=== PATIENT | female | born 1940 | race Caucasian/White ===

== ENCOUNTER 2020-06-10 10:30 | Outpatient (RCR) | payer MEDICARE, SELFPAY ==
--- NOTE | 2020-05-24 12:24 | HP.PTEVAL_ITS ---
Patient's Visit Information JESSICA SHANNON I is a 79 year old F referred to Physical Therapy by Dr. Florentino Ca MD with a diagnosis of LOW BACK PAIN W/RADIC AND TROCHANTERIC BURSITIS.. Date of Evaluation: 05/24/20 Physical Therapist: Deana Campbell, PT, Cert MDT - Visit Plan Frequency: 2-3x /Week Duration: 4-6 Weeks Plan: START SLOW. AQUATIC THERAPY FOR PAIN RELEIF, POSTURE CORRECTION/STRENGTHENING, INSTRUCTION IN APPROPRIATE BODY MECHANICS AND ACTIVITY MODIFICATIONS. DLS WITH NEURTRAL SPINE ONLY. TRISTAN LE ROM, STRETCHING AND STRENGTHENING. HEP INSTRUCTION. - Subjective Present symptoms: TRISTAN LOW BACK AND RIGHT HIP PAIN. PAIN GOES BELOW THE KNEE ON THE RIGHT. TRISTAN FOOT NUMBNESS. ALSO A LITTLE LEFT HIP PAIN. Present since: YEARS. Pain Scale: WORST 10/10, LEAST 2/10. Currently: 2/10. Commenced as a result of: NO APPARENT REASON OTHER THAN ARTHRITIS. Symptoms at onset: LOW BACK. Worse: STANDING, WALKING, LIFTING, BENDING. Better: SITTING, LYING DOWN. Disturbed sleep: YES. Previous history/Previous treatment: RIGHT HIP INJECTION BY DR. CA ABOUT A WEEK AGO AND IT HELPED. EIS BY DR. HOFF YEARS AGO. LOW BACK SURGERY 2009. H/O CHIROPRACTIC TREATMENTS WITH THE LAST ONE BEING ABOUT 3 WEEKS AGO - NO SURE IF LAST VISIT HELPED OR NOT. HAS BEEN GOING TO [facility]CTOR FOR YEARS AND PLANS TO CONTINUE. PHYSICAL THERPAY INCLUDING AQUATIC THERAPY YEARS AGO - FELT GOOD. PATIENT REPORTS DR. WILSON TOLD HER A YEAR AGO SHE NEEDS ANOTHER SERIOUS BACK SURGERY AND PATIENT REPORTS SHE DOES NOT WANT TO GO THROUGH IT. SHE REPORTS DR. WILSON LEFT THE DECISION UP TO HER. Coughing/sneezing/straining: NEGATIVE. Gait: ROLLATOR FOR ABOUT YEAR NOW BECAUSE OF BACK AND HIP PAIN. WALKS A LITTLE BIT WITHOUT IT AT HOME BUT NOT A WHOLE LOT. STATES SHE BENT DOWN AND LOST HER BALANCE ABOUT A MONTH AGO AND FELL BUT REPORTS SHE DOESN'T FALL VERY OFTEN. Difficulty initiating urinatin: SOMETIMES. Accidents: NO. Unexplained weight loss: STATES SHE HAS LOST ABOUT 6 LBS SINCE RIGHT HIP INJECTION FOR NO APPARENT REASON AND PATIENT SAID IT SURPRISED HER. THIS PT RECOMMENDED SHE LET HER DOCTOR KNOW ABOUT THIS. Imaging: RIGHT HIP X-RAY AT DR. DUARTE OFFICE AND PATIENT REPORTS HE TOLD HER THERE IS A PROBLEM WITH HER HIP BUT IT IS NOT BONE ON BONE AND HE THINKS A LOT OF HER HIP PAIN IS COMING FROM HER BACK. PMH: HTN, HYPOTHYROIDISM, DEPRESSION, ARTHRITIS. Recent major surgery: TOTAL HYSTERECTOMY - Objective Sitting/Standing Posture: POOR. REDUCED LORDOSIS AND INCREASED TRUNK FLEXION. Active Correction of posture: WORSE. Other Observations: SLOW INDEP GAIT INTO PT WITH A ROLLATOR. NO LOB. INDEP TRANSFER SIT TO STAND WITHOUT UE ASSIST BUT DIFFICULT. PATIENT DENIES INCREASED PAIN WITH TRANSFER. Motor deficit: TRISTAN LE WEAKNESS GROSSLY 4/5. TESTING LIMITED IN HIPS BY PAIN. Sensory deficit: TRISTAN LE LIGHT TOUCH SENSATION APPEARS INTACT AND SYMMETRICAL BUT FEET NT. ROM deficit: TIGHT TRISTAN HIP FLEXORS, HS'S AND GASTROC SOLEUS COMPLEX'S. Reflexes: NT. Dural Signs: POSITIVE RIGHT LE. Lumbar mvmt loss: flex - MOD. ext - LATESHA. R SG - LATESHA. L SG - LATESHA. PATIENT WITH C/O INCREASED PAIN WITH LUMBAR ROM TESTING ALL PLANES EVEN WITH VERY GENTLE TESTING. Core strength: POOR. Palpation: PATIENT IS TENDER WITH LIGHT PALPATION OF THE ENTIRE LOW BACK AND TRISTAN HIP REGIONS. TREATMENT: NEUROMUSCULAR REEDUCATION - RETRAINING OF MVMT AND POSTURE FOR SITTING, LYING AND STANDING ACTIVITIES. - Goals Goal 1:: DECREASE C/O LOW BACK AND TRISTAN HIP PAIN Goal Time Frame: 4-6 Weeks Goal 2:: IMPROVE ADL, LIFITNG, WALKING, SITTING, STANDING, AND HOMEMAKING FUNCTION. Goal Time Frame: 4-6 Weeks Goal 3:: INSTRUCT IN PROPHYLAXIS - Anticipated Interventions Patient/Client Instruction: Educate patient on: Condition, Plan of Care, Risk Factors, Benefits of Fitness Program For the Purpose of:: To improve self management Therapeutic Exercise to Include: Strength training, Body mechanics, Postural training, Flexibilty training, Neuromotor development, In an aquatic setting, Dynamic Lumbar Stabilization For the Purpose of:: To decrease pain, To increase ROM, To improve muscle performance and motor function, To increase tolerance to activity/condition/position, To improve ability of physical actions for home/community/work/leisure, To improve gait and locomotor functions Thank you for the opportunity to evaluate your patient. For Medicare and Medicare HMO plans, please review the plan of care and approve it. It will need to be FAXED BACK to us at [phone] for Medicare purposes. For Medicare only, by signing this I certify the plan of care. Please let me know if there are questions or concerns regarding this plan of care. Physician Signature: Date:
--- NOTE | 2020-06-24 12:47 | HP.PT.NRP ---
JESSICA SHANNON I was seen in my office for initial evaluation on 05/24/20. The following Plan of Care was established for this patient: Initial Frequency: 2-3x /Week Initial Duration: 4-6 Weeks Patient/Client Instruction: Educate patient on: Condition, Plan of Care, Risk Factors, Benefits of Fitness Program For the Purpose of:: To improve self management Therapeutic Exercise to Include: Strength training, Body mechanics, Postural training, Flexibilty training, Neuromotor development, In an aquatic setting, Dynamic Lumbar Stabilization For the Purpose of:: To decrease pain, To increase ROM, To improve muscle performance and motor function, To increase tolerance to activity/condition/position, To improve ability of physical actions for home/community/work/leisure, To improve gait and locomotor functions This patient was last seen in our office . Pertinent comments regarding their Physical therapy will appear below: PATIENT CANCELLED ALL REMAINING CIERRA'TS PER DR. RAYA. HAVING BACK SURGERY. At this point I will be discontinuing this patient from physical therapy. I would be happy to see this patient again in the future if found appropriate by the physician. Thank you! Deana Campbell, PT, Cert MDT
== END 2020-06-10 19:00 | disposition home or self-care (01) ==
LOC: PT 10:30
PROVIDERS: PCP Preventive Medicine Occupational Medicine; Referring Provider Specialist; Visit Provider Specialist
DX: M70.61 Trochanteric bursitis, right hip (principal); M54.5 Low back pain; M54.16 Radiculopathy, lumbar region
CPT/HCPCS: 97112; 97113; 97162

== ENCOUNTER 2020-08-02 07:26 | Day surgery (SDC) | payer MEDICARE, SELFPAY ==
[2020-08-02 07:55] VITALS: BP 184/72; PULSE 61; RESP 17; TEMP 36.6; O2SAT 98; BMI 44.6
[2020-08-02] MEDS: Lactated Ringers 1,000 ML 100 ML IV (08:19)
--- NOTE | 2020-08-02 08:39 | RAD_ITS ---
PROCEDURE: Lumbar facet injection. DATE OF EXAMINATION: 08/02/2020. INDICATION: Female, 79 years old. Chronic back pain. FLUOROSCOPY TIME (if supplied): (22.9 seconds) minutes/seconds. 4 intraoperative images were obtained. Intraoperative imaging provided for left L3-S1 facet joint injection. RAD/L/S Spine Min 4 Views IMPRESSION: Intraoperative imaging provided for left L3-S1 facet joint injection. Electronically Signed: Catrachito Boyd MD at 10:42 EDT , Service support ,
[2020-08-02] MEDS: Bupivacaine 0.25% 30 ML Vial (08:48)
[2020-08-02] MEDS: Lidocaine 1% (5 ml sdv) 5 ML Vial (08:48)
[2020-08-02] MEDS: MethylPREDNISolone Acetate 40 MG/ML Vial IM (08:48)
[2020-08-02 08:55] VITALS: BP 125/65; BP 155/70; PULSE 58; RESP 14; TEMP 36.2; O2SAT 97
[2020-08-02 09:00] VITALS: BP 120/75; BP 155/70; PULSE 58; RESP 16; O2SAT 94
[2020-08-02 09:05] VITALS: BP 119/75; BP 155/70; PULSE 59; RESP 16; O2SAT 95
[2020-08-02 09:10] VITALS: BP 137/70; BP 155/70; PULSE 56; RESP 16; TEMP 36; O2SAT 94
[2020-08-02 09:50] VITALS: BP 155/70
--- NOTE | 2020-08-02 12:35 | PCM.OPRPT ---
Report of Operation Date of Procedure: 08/02/20 Description of Surgical Findings:: PROCEDURE: Left-sided lumbar facet steroid injection at L3, L4, L5, S1. PREOPERATIVE DIAGNOSES: Lumbosacral spondylosis, lumbosacral degenerative disk disease, lumbar facet arthropathy. POSTOPERATIVE DIAGNOSES: Lumbosacral spondylosis, lumbosacral degenerative disk disease, lumbar facet arthropathy. ANESTHESIA: MAC. COMPLICATIONS: None. BLOOD LOSS: Minimal. PROCEDURE IN DETAIL: History and physical today was reviewed. Risks and benefits of procedure explained. The patient understood, agreed to procedure and informed consent was obtained. IV inserted per routine protocol. The patient was taken to the operating room, placed in the prone position with a pillow positioned underneath the abdomen. The left side of her lower back was prepped and draped in a sterile fashion using iodine x3. Under fluoroscopy guidance, on AP view, the L3 through S1 vertebral bodies were visualized. The skin and subcutaneous tissue anesthetized with approximately 5 mL of 1% lidocaine using a 25-gauge regular needle. Under direct visualization with fluoroscopy at approximately 15-degree angle, starting on the left L3, ending on the left S1, passing through the L4-L5 using a 22-gauge 3-1/2-inch spinal needle, the needle was advanced via the skin. The tip of the needle was maneuvered and directed towards the superior and medial gutter of the transverse process at the vicinity of the medial branch. Once the tip of the needle was in contact with the bone, the needle was pulled approximately 2 mm up the bone. After negative aspiration of blood with CSF and confirmation of AP as well as oblique view, a total of 8 mL of preservative-free 0.25% Marcaine with 80 mg of Depo-Medrol was injected in divided doses between those 4 levels. The patient experienced no signs or symptoms of intrathecal, intravascular injection. The patient experienced no paraesthesia. The procedure was completed without any apparent difficulty, any complication. The patient appeared to tolerate well. ASSESSMENT AND PLAN: This is a 79-year-old female with lumbosacral spondylosis, lumbosacral degenerative disk disease, lumbar facet arthropathy status post left-sided lumbar facet steroid injection at L3 through S1. The patient will continue her current medications. The patient will follow up in approximately 2 weeks for reevaluation.
== END 2020-08-02 09:55 | disposition home or self-care (01) ==
LOC: SDC 07:27 → AC 07:27
PROVIDERS: PCP Preventive Medicine Occupational Medicine; Referring Provider Anesthesiology Pain Medicine; Visit Provider Anesthesiology Pain Medicine
PROC: 3E0T3BZ Introduction of Anesthetic Agent into Peripheral Nerves and Plexi, Percutaneous Approach (ICD-10-PCS; CPT 64493; principal; 2020-08-02 08:35)
DX: M51.17 Intervertebral disc disorders with radiculopathy, lumbosacral region (principal); M47.27 Other spondylosis with radiculopathy, lumbosacral region; M48.07 Spinal stenosis, lumbosacral region; M96.1 Postlaminectomy syndrome, not elsewhere classified; M79.7 Fibromyalgia; M16.11 Unilateral primary osteoarthritis, right hip; I10 Essential (primary) hypertension; E03.9 Hypothyroidism, unspecified; K21.9 Gastro-esophageal reflux disease without esophagitis; F32.9 Major depressive disorder, single episode, unspecified; E06.9 Thyroiditis, unspecified; Z79.899 Other long term (current) drug therapy
CPT/HCPCS: 64493; 64494; 64483; 72110; J7120

== ENCOUNTER 2020-09-20 13:13 | Day surgery (SDC) | payer MEDICARE, SELFPAY ==
[2020-09-20] VITALS (7 sets, daily range): BP systolic 115–147; BP diastolic 68–103; PULSE 57–67; RESP 16; TEMP 36.3–36.6; O2SAT 92–97; BMI 19.5
[2020-09-20] MEDS: Lactated Ringers 1,000 ML 100 ML IV (13:46)
--- NOTE | 2020-09-20 14:20 | RAD_ITS ---
PROCEDURE: Caudal epidural steroid injection. DATE OF EXAMINATION: 09/20/2020. INDICATION: Female, 79 years old. Chronic low back pain. FLUOROSCOPY TIME (if supplied): (9 seconds) minutes/seconds. One single image was obtained. Intraoperative imaging provided for caudal injection. RAD/Fluor Guidance for Spine Inj IMPRESSION: Intraoperative imaging provided for caudal epidural steroid injection. Electronically Signed: Catrachito Boyd MD at 13:40 EDT , Service support ,
[2020-09-20] MEDS: Lidocaine 1% (5 ml sdv) 5 ML Vial (14:23)
[2020-09-20] MEDS: 0.9% Normal Saline (Pres. free 10 ML Vial (14:23)
[2020-09-20] MEDS: MethylPREDNISolone Acetate 40 MG/ML Vial IM ×2 (14:23)
[2020-09-20] MEDS: Bupivacaine 0.25% 30 ML Vial (14:23)
--- NOTE | 2020-09-20 14:38 | OP.PCM_ITS ---
Report of Operation Date of Procedure: 09/20/20 Pre-Operative Diagnosis: Lumbosacral radiculopathy, lumbosacral degenerative di sc disease, lumbosacral spinal stenosis Post-Operative Diagnosis: Lumbosacral radiculopathy, lumbosacral degenerative disc disease, lumbosacral spinal stenosis Surgery/Procedure Performed:: Caudal epidural steroid injection under fluoroscopic guidance Description of Surgical Findings:: DESCRIPTION OF PROCEDURE: History and physical of today was reviewed. Risks and benefits of the procedure were explained. The patient understood and agreed to proceed. Informed consent was obtained. IV inserted per routine protocol. The patient was taken to the operating room and placed in the prone position with a pillow positioned underneath the abdomen. The lower back and tailbone area was prepped and draped in a sterile fashion using iodine x3. Under fluoroscopy guidance on a lateral view, the caudal space was identified. The skin and subcutaneous tissue was anesthetized with approximately 3 mL of 1% lidocaine using a 25-gauge regular needle. Under direct visualization with fluoroscopy, using a 22-gauge 3-1/2-inch spinal needle, the needle was advanced via the skin through the sacral hiatus. The tip of the needle was passed through the sacrococcygeal ligament and advanced to approximately S4 area. After negative aspiration of blood or CSF, a total of 3 mL of contrast was injected to confirm correct placement of the needle as well as cephalad spread. The spread was followed to approximately L5 area. After confirmation on AP as well as lateral view and repeated negative aspiration, a total of 15 mL of preservative-free 0.125% Marcaine with 80 mg of Depo-Medrol was injected easily. The needle was then removed intact. The patient experienced no sign or s ymptoms of intrathecal or intravascular injection. The patient experienced no paresthesia. The procedure was completed without any apparent difficulty or any complications. The patient appeared to tolerate it well. ASSESSMENT AND PLAN: This is an 79-year-old female with lumbosacral radiculopathy, lumbosacral degenerative disc disease, lumbosacral spinal stenosis, status post caudal epidural steroid injection, patient will continue her current medications, patient will follow up in approximately 2 weeks for reevaluation. Type of Anesthesia: MAC Estimated Blood Loss (mL): Minimal Complications None
== END 2020-09-20 15:28 | disposition home or self-care (01) ==
LOC: SDC 13:14 → AC 13:14
PROVIDERS: PCP Preventive Medicine Occupational Medicine; Referring Provider Anesthesiology Pain Medicine; Visit Provider Anesthesiology Pain Medicine
PROC: 3E0S3BZ Introduction of Anesthetic Agent into Epidural Space, Percutaneous Approach (ICD-10-PCS; CPT 62282; principal; 2020-09-20 14:45)
DX: M51.17 Intervertebral disc disorders with radiculopathy, lumbosacral region (principal); M48.07 Spinal stenosis, lumbosacral region; M96.1 Postlaminectomy syndrome, not elsewhere classified; M47.27 Other spondylosis with radiculopathy, lumbosacral region; M16.11 Unilateral primary osteoarthritis, right hip; I10 Essential (primary) hypertension; E03.9 Hypothyroidism, unspecified; K21.9 Gastro-esophageal reflux disease without esophagitis; M79.7 Fibromyalgia; Z79.899 Other long term (current) drug therapy
CPT/HCPCS: 62323; 64520; 64483; 77003; J7120; J3490

== ENCOUNTER 2020-10-28 14:22 | Observation (INO) | payer MEDICARE, SELFPAY ==
[2020-09-20 13:39] VITALS: BMI 19.5
[2020-10-28] VITALS (9 sets, daily range): BP systolic 120–185; BP diastolic 59–127; PULSE 60–81; RESP 15–18; TEMP 36.4–36.9; O2SAT 88–98; BMI 38.1; BMI 43.0
--- NOTE | 2020-10-28 14:49 | EDS_ITS ---
HPI History of Present Illness Chief Complaint: Back Detail of Chief Complaint: Back pain that has been chronic and worse today Informant: patient Associated Symptoms Associated Symptoms: Radiation to Right Leg and Unable to Ambulate Narrative Narrative: Patient presents to the emergency department with severe back pain today. Patient states that she is been dealing with this back pain for many months and has been seen by pain management and has had injections in her back. The last injection was sometime in September. Patient also sees a back specialist and surgeon who did surgery on her back in 2009. She was told she might need another surgery but they were not sure she would walk again. It was recommended at her age that she may be not have the surgery. Patient denies any injury to her back. She denies any urinary symptoms. She denies any fever. She denies weakness in extremities. She has had some urinary incontinence but this has been chronic. Patient denies fever or recent illness. [facility] Medical History (Updated 10/28/20 @ 16:[address] Cleveland Oliva DO) Back pain HTN (hypertension) Hyperlipidemia Hypothyroid Ovarian cyst Home Medications Cetirizine Hcl [Zyrtec] 10 mg PO DAILY 06/02/13 [History Last Taken 04/23/16] Cinnamon 1 cap PO DAILY 06/02/13 [History Last Taken 04/23/16] Glucosamine-Chondroitin Complx 1 ea PO DAILY 06/02/13 [History Last Taken 04/23/16] calcium carbonate [Oyster Shell Calcium 500] 500 mg PO DAILY@0800 06/02/13 [History Last Taken 04/23/16] cholecalciferol (vitamin D3) [Vitamin D3] 2,000 unit PO DAILY 06/02/13 [History Last Taken 04/23/16] furosemide 40 mg PO DAILY 06/02/13 [History Last Taken 04/23/16] levothyroxine 112 mcg PO DAILY 06/02/13 [History Last Taken 09/20/20] losartan [Cozaar] 100 mg PO DAILY 06/02/13 [History Last Taken 09/20/20] multivitamin with folic acid [Thera] 1 tab PO DAILY 06/02/13 [History Last Taken 04/23/16] potassium citrate [Urocit-K 10] 20 meq PO DAILY 06/02/13 [History Last Taken 04/23/16] sertraline [Zoloft] 50 mg PO QHS 06/02/13 [History Last Taken 04/23/16] atenolol 25 mg PO QHS 07/30/20 [History Last Taken Unknown] diclofenac sodium 50 mg PO DAILY 07/30/20 [History Last Taken Unknown] Allergy/AdvReac Type Severity Reaction Status Date / Time codeine phosphate Allergy Severe Rash Verified 10/28/20 14:26 [From Tylenol-Codeine #3] diazepam [From Valium] Allergy Severe Rash Verified 10/28/20 14:26 prochlorperazine edisylate Allergy Severe Other Verified 10/28/20 14:26 [From Compazine] prochlorperazine maleate Allergy Severe Other Verified 10/28/20 14:26 [From Compazine] amoxicillin trihydrate Allergy Rash Verified 10/28/20 14:26 [From Augmentin] ampicillin Allergy Rash Verified 10/28/20 14:26 cephalexin monohydrate Allergy Rash Verified 10/28/20 14:26 [From Keflex] chlorpheniramine maleate Allergy Rash Verified 10/28/20 14:26 [From Chlor-Trimeton] dexamethasone [From Decadron] Allergy Other Verified 10/28/20 14:26 dexamethasone sod phosphate Allergy Other Verified 10/28/20 14:26 [From Decadron] levofloxacin [From Levaquin] Allergy Rash Verified 10/28/20 14:26 lorazepam [From Ativan] Allergy Rash Verified 10/28/20 14:26 Penicillins Allergy Rash Verified 10/28/20 14:26 potassium clavulanate Allergy Rash Verified 10/28/20 14:26 [From Augmentin] Surgical History (Updated 10/28/20 @ 14:32 by Noah Bazzi) History of hysterectomy Hx of cholecystectomy Hx of tonsillectomy Social History Smoking Status: Never smoker ROS ROS ED Constitutional Constitutional ED: Reports systems reviewed and no addt'l complaints, except as documented; Denies body ache(s), change in weight or chills Eyes Eyes: Denies acute decrease in peripheral vision, change in vision, double vision or loss of vision ENT ENT ED: Reports none; Denies ear pain, lip swelling, loss taste/smell, neck pain, otalgia or sore throat Cardiovascular Cardiovascular: Reports none; Denies abdominal pain, chest pain with activity, leg edema, lightheadedness, palpitations, rapid heart rate or syncope Respiratory/Chest Respiratory/Chest: Reports none; Denies change in mental status, dry cough, dyspnea, hemoptysis, shortness of breath at rest or shortness of breath with exertion Gastrointestinal Gastrointestinal: Reports none; Denies abdominal pain, change in stool character, diarrhea, hematemesis, hematochezia, melena, rectal bleeding or vomiting Genitourinary Genitourinary ED: Reports none; Denies abdominal discomfort, anuria, dysuria, genital pain or polyuria Musculoskeletal Musculoskeletal: Reports none and back pain; Denies arthralgias, difficulty walking, extremity pain, muscle weakness or myalgias Integumentary Reports none; Denies abscess or rash Neurologic Neurologic: Reports none; Denies abnormal gait, confusion, focal weakness, frequent falls, headache(s), loss of vision, numbness, paresthesias, radicular pain, vertigo or weakness Psychiatric Psychiatric: Reports systems reviewed and no addt'l complaints, except as documented and none; Denies behavioral changes, confusion, difficulty concentrating, hallucinations, suicidal ideation, tactile hallucinations or visual hallucinations Endocrine Endocrinology: Denies none, cold intolerance, excessive sweating, fatigue or heat intolerance Hematologic/Lymphatic Hematologic/Lymphatic: Reports none; Denies anemia, easy bleeding or easy bruising Allergic/Immunologic Allergic/Immunologic ED: Denies as per HPI, none, lip swelling, mouth swelling, throat swelling, tongue swelling or hives EXAM Physical Exam Const Vital Signs: 10/28/20 14:23 Temperature 98.5 F Temperature Source Oral Pulse Rate 65 Respiratory Rate 18 Blood Pressure 162/127 H Blood Pressure Mean 138 Pulse Ox 93 Positive well nourished and well developed General Appearance ED: well developed and NAD HEENT Reports TM's clear and moist mucous membranes normocephalic and atraumatic; Negative for trauma or tenderness Tympanic Membrane ED: Yes TM's clear Eyes PERRL and EOMs intact bilaterally General Eye ED: Negative for pale conjunctiva or scleral icterus Neck no lymphadenopathy, supple and no JVD General: Negative for tenderness Chest Wall inspection of chest normal and palpation of chest normal Chest: Negative for tenderness Resp normal respiratory effort and clear to auscultation bilaterally Effort and Inspection: Negative for respiratory distress or pain with movement Auscultation: Negative for rhonchi, wheezes or diminished lung sounds Cardio regular rate, regular rhythm, S1 normal heart sound, S2 normal heart sound and no murmurs Peripheral Pulses: pulses 2+ throughout GI normal to inspection, nondistended, normoactive bowel sounds, soft to palpation, non-tender, non-distended and no masses Back/Spine no CVA tenderness and no thoracic nor lumbar tenderness Back/Spine Narrative: Patient with diffuse tenderness to palpation of her lower back. She has positive straight leg raises while supine at about 45 degrees. Deep tendon reflexes are plus 1 out of 4 bilaterally at the patella and Achilles. Patient has normal L5 extension bilaterally. Normal sensation to light touch. Cervical Spine: paracervical muscle tenderness Thoracic Spine / Upper Back: paraspinal muscle tenderness Lumbar Spine / Lower Back: ROM limited, straight leg raise positive right and straight leg raise positive - left Extremity normal to inspection General Extremety ED: Negative for edema General Extremity: Negative for edema Neuro oriented x3, CN's II-XII intact bilaterally, no sensory deficits noted and gait normal Sensorium / Orientation: awake, alert, oriented to person, oriented to place and oriented to time Motor Exam: strength 5/5 throughout and strength abnormal Psych mental status grossly normal Skin no rashes or lesions noted and no wounds MDM MDM MDM Narrative Medical decision making narrative: Patient case discussed with hospitalist will evaluate patient for admission. She will be admitted for intractable back pain and inability to ambulate because of the pain. Lab Data Attestation: I reviewed the patient's lab results. Labs: Laboratory Results - last 24 hr 10/28/20 10/28/20 10/28/20 15:05 15:05 15:25 WBC 4.8 RBC 4.26 Hgb 12.4 Hct 40.2 MCV 94.4 MCH 29.1 MCHC 30.8 L RDW Std Deviation 49.1 H RDW Coeff of Mary 14.1 Plt Count 213 MPV 10.0 Immature Gran % (Auto) 0.400 Neut % (Auto) 61.7 Lymph % (Auto) 22.4 [place] % (Auto) 11.6 H Eos % (Auto) 3.3 Baso % (Auto) 0.6 Absolute Neuts (auto) 3.0 Absolute Lymphs (auto) 1.08 Nucleated RBC % 0 Sodium 141 Potassium 4.0 Chloride 106 Carbon Dioxide 32.0 Anion Gap 3 L BUN 17 Creatinine 0.92 Estim Creat Clear Calc 43.15 Est GFR (MDRD) Af Amer 76 Est GFR (MDRD) Non-Af 63 BUN/Creatinine Ratio 18.5 Glucose 98 Calcium 9.0 Urine Color Straw Urine Clarity Clear Urine pH 8.0 Ur Specific [place] 1.010 Urine Protein Negative Urine Glucose (UA) Normal Urine Ketones Negative Urine Occult Blood Negative Urine Nitrite Negative Urine Bilirubin Negative Urine Urobilinogen Normal Ur Leukocyte Esterase 25 H Urine RBC 0 SEEN Urine WBC 0-5 SEEN Ur Squamous Epith Cells 0-5 SEEN Urine Bacteria 0 SEEN Urine Mucus 0 SEEN Discharge Plan Triage Chief Complaint: Back ED Provider: Cleveland Oliva Dx/Rx/DC Orders Clinical Impression: Intractable back pain, Inability to walk Prescriptions: No Action furosemide 40 MG tablet 40 mg PO DAILY RF: 0 levothyroxine 100 MCG tablet 112 mcg PO DAILY RF: 0 calcium carbonate [Oyster Shell Calcium 500] 500 MG tablet 500 mg PO DAILY@0800 RF: 0 potassium citrate [Urocit-K 10] 10 MEQ tablet extended release 20 meq PO DAILY RF: 0 sertraline [Zoloft] 25 MG tablet 50 mg PO QHS RF: 0 losartan [Cozaar] 100 MG tablet 100 mg PO DAILY RF: 0 cholecalciferol (vitamin D3) [Vitamin D3] 2,000 UNIT tablet 2,000 unit PO DAILY RF: 0 multivitamin with folic acid [Thera] 1 TABLET tablet 1 tab PO DAILY RF: 0 Glucosamine-Chondroitin Complx 1 EACH tablet 1 ea PO DAILY RF: 0 Cetirizine Hcl [Zyrtec] 10 MG tablet 10 mg PO DAILY RF: 0 Cinnamon 1 cap PO DAILY RF: 0 atenolol 25 MG tablet 25 mg PO QHS RF: 0 diclofenac sodium 50 MG tablet 50 mg PO DAILY RF: 0 Primary Care Provider: Alfred Mckay Referrals: Alfred Mckay DO [Primary Care Provider] - Disposition Disposition: Acute Care Hospital [facility]
[2020-10-28 15:18] LABS: Absolute Lymphocyte Count 1.08 X10^3/uL (0.83-4.51); Basophil# 0.03 X10^3/uL; Basophil% 0.6 % (0-1); Eosinophil# 0.16 X10^3/uL; Eosinophils% 3.3 % (0-5); Hematocrit 40.2 % (37-47); Hemoglobin 12.4 g/dL (12.0-15.0); Lymphocyte # 1.08 X10^3/ul (0.83-4.51); Lymphocyte % 22.4 % (19-41); Mean Corp Hgb Conc 30.8 g/dL (32-36); Mean Corpuscular Hgb 29.1 pg (27.0-32.0); Mean Corpuscular Volume 94.4 fL (81-99); Monocyte# 0.56 X10^3/uL; Monocyte% 11.6 % (0-10); NRBC Flagged by Analyzer 0 % (0-5); Neutrophil # 2.97 X10^3/uL (2.7-7.7); Neutrophil % 61.7 % (47-70); Platelet Count 213 K/mm3 (150-450); RBC Distribution Width CV 14.1 % (11.6-14.6); RBC Distribution Width SD 49.1 fl (35.1-43.9); Red Blood Count 4.26 M/mm3 (4.2-5.4); White Blood Count 4.8 K/mm3 (4.4-11.0)
[2020-10-28] MEDS: 0.9% Normal Saline 1,000 ML 15 ML IV (15:24)
[2020-10-28 15:32] LABS: Bacteria 0 SEEN /hpf (None Seen); Mucous, Urine 0 SEEN /hpf (<or=2+); Red Blood Cells-Urine 0 SEEN /hpf (0-5)
[2020-10-28 15:32] LABS: Anion Gap 3 (5-15); BUN 17 mg/dL (7-18); BUN/Creat Ratio 18.5 RATIO (10-20); Chloride 106 mmol/L (98-107); Creatinine, Serum 0.92 mg/dL (0.55-1.02); EST Glomerular Filtration Rate 63 mL/min (>60); Est Glom Filt Rate - Afr Amer 76 mL/min (>60); Estimated Creatinine Clearance 43.15 ml/min; Glucose 98 mg/dL (74-106); Sodium Level 141 mmol/L (136-145)
[2020-10-28 15:38] LABS: Color, Urine Straw (Yellow); Glucose, Dipstick Normal (Normal); Ketone-Dipstick Negative (Negative); Leukocyte Esterase-Dipstick 25 /ul (Negative); Nitrite-Dipstick Negative (Negative); Occult Blood-Urine Negative /ul (Negative); Protein-Dipstick Negative (Negative); Urine Bilirubin Dipstick Negative (Negative); Urine Clarity Clear (Clear); Urine Urobilinogen Normal (Normal)
[2020-10-28 15:44] LABS: Squamous Epithelial Cells - UA 0-5 SEEN /hpf (5-10); White Blood Cells 0-5 SEEN /hpf (0-5)
--- NOTE | 2020-10-28 16:44 | NURSING ---
MED SURG JOPPERI OBS INTRACTABLE BACK PAIN, INABILITY TO AMBULATE
--- NOTE | 2020-10-28 16:53 | MRI_ITS ---
HISTORY: Intractable back pain EXAMINATION: MR Spine Lumbar WO/W Contrast TECHNIQUE: Multiplanar and multisequence MR images of the lumbar spine. IV Contrast dosage and agent: None. COMPARISON: Fluoroscopic exams are available from July 21, 2020 as well as June 05, 2016. Previous MRIs of the lumbar spine are prominent [facility] second 2015, and November 04, 2010. FINDINGS: The patient has had spinal fixation surgery at the L4-L5 level. Parts of the posterior elements of been resected at the L4 and L5 levels. VERTEBRAE: Vertebral body height is normal. Degenerative malalignment is present at several levels. L4 is anteriorly subluxed on L5 by a few millimeters. L5 is anteriorly subluxed on S1 by a few millimeters. This did agree of degenerative subluxation is similar to that of the 2015 MRI, and may be slightly more advanced than to November 04, 2010 study. Marrow signal demonstrates Modic type endplate changes at the L2-L3 and L5-S1 levels. The disease at the L2-L3 level appears to be similar. The disease at the L5-S1 level I believe is slightly progressed. There is some in homogeneity of the magnetic field due to the metal within the hardware fixation causing the apparent edema within the dorsal soft tissues at the L4 and L5 levels, but I believe this is just susceptibility artifact. No expansile or destructive lesion. CORD: Normal visualized portions of the spinal cord and cauda equina, with the tip of the conus medullaris at the L1 level. The epidural fat at the laminar junction line beginning at about the T11-T12 level, and continuing down to the L3-L4 level is fairly prominent, with thickening of the posterior dura, and it causing the dura to extend anteriorly. At these levels, from L2-L3 through to L4 there is narrowing of the dural sac around the nerves with displacement of CSF. This disease is new since the January 21, 2016 study, and may be sequelae of arachnoiditis SOFT TISSUES: There is some atrophy to the paraspinal musculature both above and at the operative levels within the lower lumbar spine. L1/L2: No disc bulge, central canal stenosis, or neural foraminal stenosis. L2/L3: At the L2-L3 level there is near complete displacement of all of the CSF from the dural sac due to the prominence of the epidural fat compressing in on the dural sac and possibly related to dural scarring. There is some facet arthropathy and ligament thickening disc bulge at the L2-L3 level, however, this osseous and ligamentous and disc disease is less than that of the prominence of the fat in the scarring of the dural sac. L3/L4: The disease at the L3-L4 level is the same as that as the L2-L3 level, with prominence of the dorsal epidural fat compressing in an scarring to the dural sac displacing CSF from the dural sac. There is facet arthropathy, ligamentum thickening, and minimal disc bulge, but this has negligible effect. L4/L5: Due to the surgical changes at the L4-L5 level the spinal canal is patent. L5/S1: Surgical changes at the L4-L5 level with minimal disc bulge and no significant ligament. MRI/Spine Lumbar W/WO Contrast IMPRESSION: Postoperative changes at the L4-L5 level with hardware fixation. Collapse of the dural sac around the nerves at the L2-L3 and L3-L4 levels which appears to be more due to prominence of the epidural fat adjacent to the laminar junction line rather than facet arthropathy, ligamentum thickening, or disc bulge. 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 This disease is new since the most recent MRI of December 21, 2015 at 2252 Reported and signed by: Don Zamora MD Electronically Signed: Don Zamora MD at 22:50 EDT Tel , Service support ,
--- NOTE | 2020-10-28 17:06 | PCM.HP.STD ---
Documented by User: Robinson MCGOVERN 10/28/20 17:29 HPI - General General Date of Admission: 10/28/20 HPI Narrative Patient is an 80-year-old female presents to the ED at [facility] on 10/28/2020 with a chief complaint of worsening intractable back and leg pain. Patient has a chronic 10-year history of back pain and follows with orthopedics and pain management. Patient received a routine steroid injection 3 weeks ago, to which her pain is usually amenable. Patient has received no relief from the injection and pain has only gotten progressively worse over the past month. Patient reports that the her pain is so bad today that she cannot complete her activities of daily living or ambulate around the house, which is abnormal for her. Patient reports pain in her back and legs, however denies any radiation of her symptoms. Patient denies any saddle anesthesia but does report some urinary incontinence which is a chronic problem for her. Denies chest pain, shortness of breath, palpitations, hemoptysis, fever, chills, N/V/D. Patient denies any recent sick contacts. Past medical history is significant for lumbosacral spondylolosis, lumbosacral degenerative disc disease, lumbar facet arthropathy, diverticulitis, hypertension, hypothyroidism, GERD, arthritis, fibromyalgia and osteoarthritis. Past surgical history is significant for lumbar fusion in 2009 with plates rods and screws, multiple other surgeries completed throughout patient's lifetime. Vital signs unremarkable and patient is afebrile. CBC and BMP unremarkable. UA unremarkable. [facility] Medical History Back pain HTN (hypertension) Hyperlipidemia Hypothyroid Non-smoker Ovarian cyst Home Medications Glucosamine-Chondroitin Complx 1 ea PO DAILY 06/02/13 [History Last Taken 10/27/20] cholecalciferol (vitamin D3) [Vitamin D3] 4,000 unit PO DAILY 06/02/13 [History Last Taken 10/27/20] furosemide 40 mg PO DAILY 06/02/13 [History Last Taken 10/27/20] losartan [Cozaar] 100 mg PO DAILY 06/02/13 [History Last Taken 10/28/20] multivitamin with folic acid [Thera] 1 tab PO DAILY 06/02/13 [History Last Taken 10/27/20] potassium citrate [Urocit-K 10] 20 meq PO DAILY 06/02/13 [History Last Taken 10/28/20] atenolol 25 mg PO QHS 07/30/20 [History Last Taken 10/27/20] diclofenac sodium 50 mg PO BID 07/30/20 [History Last Taken 10/28/20] calcium citrate 1,000 mg PO DAILY 10/28/20 [History Last Taken 10/27/20] cetirizine [Zyrtec] 10 mg PO DAILY 10/28/20 [History Last Taken 10/28/20] cinnamon bark [Cinnamon] 1,000 mg PO DAILY 10/28/20 [History Last Taken 10/27/20] gabapentin 300 mg PO QHS 10/28/20 [History Last Taken 10/27/20] levothyroxine 112 mcg PO DAILY 10/28/20 [History Last Taken 10/28/20] sertraline 50 mg PO QHS 10/28/20 [History Last Taken 10/27/20] Allergy/AdvReac Type Severity Reaction Status Date / Time codeine phosphate Allergy Severe Rash Verified 10/28/20 14:26 [From Tylenol-Codeine #3] diazepam [From Valium] Allergy Severe Rash Verified 10/28/20 14:26 prochlorperazine edisylate Allergy Severe Other Verified 10/28/20 14:26 [From Compazine] prochlorperazine maleate Allergy Severe Other Verified 10/28/20 14:26 [From Compazine] amoxicillin trihydrate Allergy Rash Verified 10/28/20 14:26 [From Augmentin] ampicillin Allergy Rash Verified 10/28/20 14:26 cephalexin monohydrate Allergy Rash Verified 10/28/20 14:26 [From Keflex] chlorpheniramine maleate Allergy Rash Verified 10/28/20 14:26 [From Chlor-Trimeton] dexamethasone [From Decadron] Allergy Other Verified 10/28/20 14:26 dexamethasone sod phosphate Allergy Other Verified 10/28/20 14:26 [From Decadron] levofloxacin [From Levaquin] Allergy Rash Verified 10/28/20 14:26 lorazepam [From Ativan] Allergy Rash Verified 10/28/20 14:26 Penicillins Allergy Rash Verified 10/28/20 14:26 potassium clavulanate Allergy Rash Verified 10/28/20 14:26 [From Augmentin] Surgical History History of appendectomy History of hysterectomy Hx of cholecystectomy Hx of tonsillectomy Social History Smoking Status: Never smoker ROS Constitutional Constitutional: Reports weakness; Denies anorexia, change in weight, chills, fatigue, fever(s), malaise, night sweats or other Eyes Eyes: Denies blurry vision, change in eye color, change in vision, discharge from eye(s), double vision, erythema, eye pain, loss of vision or other ENT HEENT: Denies abnormal hearing, dysphagia, ear pain, epistaxis, headache(s), hearing loss, nasal congestion, nasal discharge, post nasal drip, sinus pressure, sore throat or other Cardiovascular Cardiovascular: Denies chest pain, claudication, dyspnea on exertion, edema, lightheadedness, orthopnea, palpitations, paroxysmal nocturnal dyspnea, rapid heart rate, syncope or other Respiratory/Chest Respiratory/Chest: Denies cough, dyspnea, excessive phlegm production, hemoptysis, productive cough, shortness of breath at rest, shortness of breath with exertion, wheezing or other Gastrointestinal Gastrointestinal: Denies abdominal pain, coffee ground emesis, constipation, diarrhea, dyspepsia, hematemesis, hematochezia, loose stools, melena, nausea, vomiting or other Genitourinary Genitourinary: Denies burning urination, difficulty urinating, dysuria, hematuria, nocturia, urinary frequency, urinary hesitancy, urinary incontinence, urinary urgency or other Musculoskeletal Musculoskeletal: Reports arthralgias, back pain and joint pain Neurologic Neurologic: Denies abnormal gait, abnormal speech, confusion, disequilibrium, dizziness, focal weakness, headache(s), numbness, paresthesias, seizure-like activity, seizures, syncope, tingling, tremor(s) or other Psychiatric Psychiatric: Denies anxiety, depression, homicidal ideation, suicidal ideation or other Endocrine Endocrinology: Denies change in body appearance, cold intolerance, excessive sweating, heat intolerance, polydipsia, polyuria or other Hematologic/Lymphatic Hematologic/Lymphatic: Denies anemia, easy bleeding, easy bruising, lymphadenopathy or other Allergic/Immunologic Allergic/Immunologic: Denies rhinitis, hives, eczemia, asthma or other Vital Signs Vital Signs Vital Signs: 10/28/20 14:23 10/28/20 16:59 Temperature 98.5 F 97.6 F L Temperature Source Oral Temporal Pulse Rate 65 81 Respiratory Rate 18 15 Blood Pressure 162/127 H 126/93 H Blood Pressure Mean 138 104 Pulse Ox 93 93 Oxygen Delivery Method Room Air Weight Weight: 229 lb 4.492 oz Body Mass Index (BMI) 38.1 Physical Exam Narrative See subjective. Const alert and oriented x3 HEENT normocephalic, head/scalp atraumatic and hearing grossly normal bilaterally Eyes PERRL, EOMs intact bilaterally and conjunctivae normal Neck no lymphadenopathy, supple and no JVD Resp normal respiratory effort, no retractions, no use of accessory muscles and clear to auscultation bilaterally Cardio regular rate, regular rhythm, no murmurs and no JVD GI normal to inspection, nondistended, normoactive bowel sounds, soft to palpation, non-tender and non-distended Extremity normal to inspection and no clubbing, cyanosis or edema Skin no rashes or lesions noted, no wounds and no jaundice Neuro CN's II-XII intact bilaterally Psych affect normal Results Lab / Micro Data Result Diagrams: 10/28/20 15:05 10/28/20 15:05 Labs: Laboratory Results - last 24 hr 10/28/20 10/28/20 10/28/20 15:05 15:05 15:25 WBC 4.8 RBC 4.26 Hgb 12.4 Hct 40.2 MCV 94.4 MCH 29.1 MCHC 30.8 L RDW Std Deviation 49.1 H RDW Coeff of Mary 14.1 Plt Count 213 MPV 10.0 Immature Gran % (Auto) 0.400 Neut % (Auto) 61.7 Lymph % (Auto) 22.4 Levy % (Auto) 11.6 H Eos % (Auto) 3.3 Baso % (Auto) 0.6 Absolute Neuts (auto) 3.0 Absolute Lymphs (auto) 1.08 Nucleated RBC % 0 Sodium 141 Potassium 4.0 Chloride 106 Carbon Dioxide 32.0 Anion Gap 3 L BUN 17 Creatinine 0.92 Estim Creat Clear Calc 43.15 Est GFR (MDRD) Af Amer 76 Est GFR (MDRD) Non-Af 63 BUN/Creatinine Ratio 18.5 Glucose 98 Calcium 9.0 Urine Color Straw Urine Clarity Clear Urine pH 8.0 Ur Specific Dahlgren 1.010 Urine Protein Negative Urine Glucose (UA) Normal Urine Ketones Negative Urine Occult Blood Negative Urine Nitrite Negative Urine Bilirubin Negative Urine Urobilinogen Normal Ur Leukocyte Esterase 25 H Urine RBC 0 SEEN Urine WBC 0-5 SEEN Ur Squamous Epith Cells 0-5 SEEN Urine Bacteria 0 SEEN Urine Mucus 0 SEEN Assessment & Plan Assessment/Plan (1) Depression: (2) Dyslipidemia: (3) Essential hypertension: (4) Hypothyroidism: (5) Fibromyalgia: (6) Osteoarthritis: (7) Intractable back pain: (8) Inability to walk: PLAN: Patient is an 80-year-old female presents to the ED at [facility] on 10/28/2020 with a chief complaint of intractable back pain and inability to ambulate. Patient has a chronic 10-year history of back pain, however reports that current pain and inability to ambulate are new. Patient will be admitted for medical observation and to obtain additional imaging and lieu of patient's worsening symptoms. 1) Intractable back pain. Chronic 10-year history of back pain to include lumbosacral spondylosis, lumbosacral degenerative disc disease, lumbar facet arthropathy at L3-S1. Follows with Dr. Ca and Dr. Arriola for management of her back pain. Patient received a left-sided lumbar facet steroid injection at L3-S1 on 08/02/2020, with no resolution of her pain. Plan; admit to [place] [id number] for medical observation, MRI of the lumbar spine ordered, PT/OT eval ordered, Tylenol 1000 mg p.o. 3 times daily ordered as needed, Dilaudid as needed. 2) HTN Stable, continue home Lasix, losartan and beta-popeye 3) Fibromyalgia Continue gabapentin and diclofenac. 4) Depression Continue Zoloft. DVT prophylaxis - SCDs CODE STATUS: Full code Patient seen by Robinson Bernal PA-C, under the supervision of Dr. Michele. Documented by User: Dr. Jd Michele DO 10/28/20 18:28 HPI - General General Date of Admission: 10/28/20 Date of Service: 10/28/20 Chief Complaint: back pain HPI Narrative 80-year-old female with a history of chronic back pain presents with a gradual worsening of her back pain. Patient now complaining of pain going down her right leg. Patient has chronic urinary incontinence but no new changes. Patient wanting resolution of her discomfort but has previously declined any surgical intervention as the surgery has been explained to her as it would be very involved and there is no guarantee that would alleviate her pain according the patient. [facility] Medical History Back pain HTN (hypertension) Hyperlipidemia Hypothyroid Non-smoker Ovarian cyst Home Medications Glucosamine-Chondroitin Complx 1 ea PO DAILY 06/02/13 [History Last Taken 10/27/20] cholecalciferol (vitamin D3) [Vitamin D3] 4,000 unit PO DAILY 06/02/13 [History Last Taken 10/27/20] furosemide 40 mg PO DAILY 06/02/13 [History Last Taken 10/27/20] losartan [Cozaar] 100 mg PO DAILY 06/02/13 [History Last Taken 10/28/20] multivitamin with folic acid [Thera] 1 tab PO DAILY 06/02/13 [History Last Taken 10/27/20] potassium citrate [Urocit-K 10] 20 meq PO DAILY 06/02/13 [History Last Taken 10/28/20] atenolol 25 mg PO QHS 07/30/20 [History Last Taken 10/27/20] diclofenac sodium 50 mg PO BID 07/30/20 [History Last Taken 10/28/20] calcium citrate 1,000 mg PO DAILY 10/28/20 [History Last Taken 10/27/20] cetirizine [Zyrtec] 10 mg PO DAILY 10/28/20 [History Last Taken 10/28/20] cinnamon bark [Cinnamon] 1,000 mg PO DAILY 10/28/20 [History Last Taken 10/27/20] gabapentin 300 mg PO QHS 10/28/20 [History Last Taken 10/27/20] levothyroxine 112 mcg PO DAILY 10/28/20 [History Last Taken 10/28/20] sertraline 50 mg PO QHS 10/28/20 [History Last Taken 10/27/20] Allergy/AdvReac Type Severity Reaction Status Date / Time codeine phosphate Allergy Severe Rash Verified 10/28/20 14:26 [From Tylenol-Codeine #3] diazepam [From Valium] Allergy Severe Rash Verified 10/28/20 14:26 prochlorperazine edisylate Allergy Severe Other Verified 10/28/20 14:26 [From Compazine] prochlorperazine maleate Allergy Severe Other Verified 10/28/20 14:26 [From Compazine] amoxicillin trihydrate Allergy Rash Verified 10/28/20 14:26 [From Augmentin] ampicillin Allergy Rash Verified 10/28/20 14:26 cephalexin monohydrate Allergy Rash Verified 10/28/20 14:26 [From Keflex] chlorpheniramine maleate Allergy Rash Verified 10/28/20 14:26 [From Chlor-Trimeton] dexamethasone [From Decadron] Allergy Other Verified 10/28/20 14:26 dexamethasone sod phosphate Allergy Other Verified 10/28/20 14:26 [From Decadron] levofloxacin [From Levaquin] Allergy Rash Verified 10/28/20 14:26 lorazepam [From Ativan] Allergy Rash Verified 10/28/20 14:26 Penicillins Allergy Rash Verified 10/28/20 14:26 potassium clavulanate Allergy Rash Verified 10/28/20 14:26 [From Augmentin] Surgical History History of appendectomy History of hysterectomy Hx of cholecystectomy Hx of tonsillectomy Social History Smoking Status: Never smoker ROS ROS Narrative All review of systems were negative except as mentioned above in the history of present illness and the other review of systems. Physical Exam Const alert General Appearance: cooperative Extremity normal to inspection and full ROM Skin no rashes or lesions noted Neuro moves all extremities Neuro Narrative: Sensation grossly intact in lower extremities. No clonus. Sensorium / Orientation: awake and alert Speech: speech normal Results Lab / Micro Data Attestation: I reviewed the patient's lab results. Result Diagrams: 10/28/20 15:05 10/28/20 15:05 Assessment & Plan Assessment/Plan (1) Intractable back pain: PLAN: Patient seen and examined independently. Data reviewed. I agree with the above note by the physician assistant inventory manager. 1. Acute on chronic back pain Patient now having radicular components Patient has had surgery in the past and is declining any further surgery and has seen a spine surgeon in [place] as well as Dr. Callejas here in [place]. Plan is to optimize pain control on and I explained to her as well as her family that the goal is to get her pain so that she can be functional but unfortunately would likely not be pain-free. Since her pain has gotten worse I think would be appropriate to do an MRI to rule out any kind abscess that may warrant intervention in the absence of that may consider consulting pain management with Dr. Arriola. Charges/Coding Visit Charges OBSV E&M: 98846 Initial observation care L3
--- NOTE | 2020-10-28 18:47 | NURSING ---
pt to mri
[2020-10-28] MEDS: Atenolol 25 MG Tablet PO (21:06)
[2020-10-28] MEDS: Gabapentin 300 MG Capsule PO (21:06)
[2020-10-28] MEDS: Sertraline 50 MG Tablet PO (21:06)
[2020-10-28] MEDS: Acetaminophen 500 MG Tablet 1000 MG PO (21:14)
[2020-10-29] MEDS: 0.9% Saline Lock 10 ML Syringe IV (03:27)
[2020-10-29 03:42] LABS: Absolute Lymphocyte Count 1.38 X10^3/uL (0.83-4.51); Absolute Neutrophil Count 2.9 X10^3/uL (2.0-7.7); Basophil# 0.03 X10^3/uL; Basophil% 0.6 % (0-1); Eosinophil# 0.11 X10^3/uL; Eosinophils% 2.2 % (0-5); Hematocrit 39.8 % (37-47); Hemoglobin 12.1 g/dL (12.0-15.0); Lymphocyte # 1.38 X10^3/ul (0.83-4.51); Lymphocyte % 27.5 % (19-41); Mean Corp Hgb Conc 30.4 g/dL (32-36); Mean Corpuscular Hgb 29.1 pg (27.0-32.0); Mean Corpuscular Volume 95.7 fL (81-99); Monocyte# 0.58 X10^3/uL; Monocyte% 11.6 % (0-10); NRBC Flagged by Analyzer 0 % (0-5); Neutrophil % 57.9 % (47-70); Platelet Count 206 K/mm3 (150-450); RBC Distribution Width CV 14.2 % (11.6-14.6); RBC Distribution Width SD 49.8 fl (35.1-43.9); Red Blood Count 4.16 M/mm3 (4.2-5.4)
[2020-10-29 03:55] LABS: Anion Gap 1 (5-15); BUN 14 mg/dL (7-18); BUN/Creat Ratio 18.6 RATIO (10-20); Calcium,Total 8.3 mg/dL (8.5-10.1); Chloride 105 mmol/L (98-107); Creatinine, Serum 0.75 mg/dL (0.55-1.02); EST Glomerular Filtration Rate 79 mL/min (>60); Est Glom Filt Rate - Afr Amer 95 mL/min (>60); Estimated Creatinine Clearance 33.29 ml/min; Glucose 103 mg/dL (74-106); Potassium 4.1 mmol/L (3.5-5.1); Sodium Level 140 mmol/L (136-145)
[2020-10-29] MEDS: Acetaminophen 500 MG Tablet 1000 MG PO ×2 (05:09→16:32)
[2020-10-29 05:11] VITALS: BP 104/43; PULSE 52; RESP 16; TEMP 36.7; O2SAT 99
[2020-10-29 09:20] VITALS: O2SAT 98
--- NOTE | 2020-10-29 10:09 | RAD_ITS ---
STUDY: X-RAY CHEST REASON FOR EXAM: Female, 80 years old. Coated. TECHNIQUE: Single frontal view of the chest. COMPARISON: 09/27/2012. FINDINGS: Elevation of the right hemidiaphragm with right middle and lower lobe atelectasis. There is no demonstrated pleural abnormality. Normal size heart. Normal mediastinum and eb. Normal visualized pulmonary arteries. Normal visualized aortic arch and descending thoracic aorta. Normal visualized thoracic spine. Normal visualized ribs, clavicles, and shoulders. There is no demonstrated abnormality of the visualized soft tissue structures of the upper abdomen. RAD/Chest 1 View (Portable) IMPRESSION: Elevation of the right hemidiaphragm with right middle and lower lobe atelectasis. No other abnormality is present. Electronically Signed: Marco Antonio Sosa MD at 10:54 EDT , Service support ,
[2020-10-29 10:12] VITALS: BP 155/65; PULSE 55; RESP 18; TEMP 36.7; O2SAT 94
[2020-10-29] MEDS: Furosemide 40 MG Tablet PO (10:17)
[2020-10-29] MEDS: Levothyroxine 112 MCG Tablet PO (10:17)
[2020-10-29] MEDS: Loratadine 10 MG Tablet PO (10:17)
[2020-10-29] MEDS: POTASSIUM CITRATE 5 MEQ TABLET.ER 20 MEQ PO (10:17)
[2020-10-29] MEDS: Multivitamins,Ther W-Minerals Tablet 1 TABLET PO (10:17)
[2020-10-29] MEDS: Losartan Potassium 100 MG Tablet PO (10:17)
[2020-10-29 10:58] LABS: AST(SGOT) 31 U/L (15-37); Alanine Aminotransfer ALT/SGPT 24 U/L (13-56); Albumin, Serum 2.6 g/dL (3.2-5.0); Alkaline Phosphatase 102 U/L (45-117); Bilirubin, Direct 0.08 mg/dL (0.00-0.30); Globulin 2.7 g/dL (2.2-4.2); Protein, Total 5.3 g/dL (6.4-8.2)
[2020-10-29 10:58] LABS: D-Dimer Quantitative (DVT/PE) 0.49 FEU/ug/m (0.27-0.49)
--- NOTE | 2020-10-29 11:58 | PCM.PN.HOSP ---
Documented by User: Robinson MCGOVERN 10/29/20 12:21 Subjective Subjective Patient is an 80-year-old female comfortably lying in bed, alert and oriented x3. Patient reports that her back pain is currently controlled from admission. Denies chest pain, shortness of breath, palpitations, sputum production, hemoptysis, lower extremity swelling/pain, fever, chills, N/V/D. Objective Data Objective Data Vital Signs: Vital Signs Temp Pulse Resp BP Pulse Ox 98.0 F 55 L 18 155/65 H 94 10/29/20 10:12 10/29/20 10:12 10/29/20 10:12 10/29/20 10:12 10/29/20 10:12 Oxygen Flow Rate (L/min) 1 Oxygen Delivery Method Nasal Cannula Weight: 228 lb Body Mass Index (BMI) 43.0 Intake & Output: Intake and Output for Last 24 Hours 10/27/20 10/28/20 10/29/20 23:59 23:59 23:59 Intake Total 50.75 / 50.75 100 / 100 Balance 50.75 / 50.75 100 / 100 Lab / Micro Data Result Diagrams: 10/29/20 03:30 10/29/20 03:30 Labs: Laboratory Results - last 24 hr 10/28/20 10/28/20 10/28/20 15:05 15:05 15:25 WBC 4.8 RBC 4.26 Hgb 12.4 Hct 40.2 MCV 94.4 MCH 29.1 MCHC 30.8 L RDW Std Deviation 49.1 H RDW Coeff of Mary 14.1 Plt Count 213 MPV 10.0 Immature Gran % (Auto) 0.400 Neut % (Auto) 61.7 Lymph % (Auto) 22.4 [place] % (Auto) 11.6 H Eos % (Auto) 3.3 Baso % (Auto) 0.6 Absolute Neuts (auto) 3.0 Absolute Lymphs (auto) 1.08 Nucleated RBC % 0 D-Dimer Quant (PE/DVT) Sodium 141 Potassium 4.0 Chloride 106 Carbon Dioxide 32.0 Anion Gap 3 L BUN 17 Creatinine 0.92 Estim Creat Clear Calc 43.15 Est GFR (MDRD) Af Amer 76 Est GFR (MDRD) Non-Af 63 BUN/Creatinine Ratio 18.5 Glucose 98 Calcium 9.0 Total Bilirubin Direct Bilirubin AST ALT Alkaline Phosphatase Total Protein Albumin Globulin Urine Color Straw Urine Clarity Clear Urine pH 8.0 Ur Specific [place] 1.010 Urine Protein Negative Urine Glucose (UA) Normal Urine Ketones Negative Urine Occult Blood Negative Urine Nitrite Negative Urine Bilirubin Negative Urine Urobilinogen Normal Ur Leukocyte Esterase 25 H Urine RBC 0 SEEN Urine WBC 0-5 SEEN Ur Squamous Epith Cells 0-5 SEEN Urine Bacteria 0 SEEN Urine Mucus 0 SEEN 10/29/20 10/29/20 10/29/20 03:30 03:30 03:30 WBC 5.0 RBC 4.16 L Hgb 12.1 Hct 39.8 MCV 95.7 MCH 29.1 MCHC 30.4 L RDW Std Deviation 49.8 H RDW Coeff of Mary 14.2 Plt Count 206 MPV 10.0 Immature Gran % (Auto) 0.200 Neut % (Auto) 57.9 Lymph % (Auto) 27.5 [place] % (Auto) 11.6 H Eos % (Auto) 2.2 Baso % (Auto) 0.6 Absolute Neuts (auto) 2.9 Absolute Lymphs (auto) 1.38 Nucleated RBC % 0 D-Dimer Quant (PE/DVT) Sodium 140 Potassium 4.1 Chloride 105 Carbon Dioxide 34.0 H Anion Gap 1 L BUN 14 Creatinine 0.75 Estim Creat Clear Calc 33.29 Est GFR (MDRD) Af Amer 95 Est GFR (MDRD) Non-Af 79 BUN/Creatinine Ratio 18.6 Glucose 103 Calcium 8.3 L Total Bilirubin 0.20 Direct Bilirubin 0.08 AST 31 ALT 24 Alkaline Phosphatase 102 Total Protein 5.3 L Albumin 2.6 L Globulin 2.7 Urine Color Urine Clarity Urine pH Ur Specific [place] Urine Protein Urine Glucose (UA) Urine Ketones Urine Occult Blood Urine Nitrite Urine Bilirubin Urine Urobilinogen Ur Leukocyte Esterase Urine RBC Urine WBC Ur Squamous Epith Cells Urine Bacteria Urine Mucus 10/29/20 10:30 WBC RBC Hgb Hct MCV MCH MCHC RDW Std Deviation RDW Coeff of Mary Plt Count MPV Immature Gran % (Auto) Neut % (Auto) Lymph % (Auto) [place] % (Auto) Eos % (Auto) Baso % (Auto) Absolute Neuts (auto) Absolute Lymphs (auto) Nucleated RBC % D-Dimer Quant (PE/DVT) 0.49 Sodium Potassium Chloride Carbon Dioxide Anion Gap BUN Creatinine Estim Creat Clear Calc Est GFR (MDRD) Af Amer Est GFR (MDRD) Non-Af BUN/Creatinine Ratio Glucose Calcium Total Bilirubin Direct Bilirubin AST ALT Alkaline Phosphatase Total Protein Albumin Globulin Urine Color Urine Clarity Urine pH Ur Specific [place] Urine Protein Urine Glucose (UA) Urine Ketones Urine Occult Blood Urine Nitrite Urine Bilirubin Urine Urobilinogen Ur Leukocyte Esterase Urine RBC Urine WBC Ur Squamous Epith Cells Urine Bacteria Urine Mucus Micro: Microbiology 10/28/20 18:15 Nasal Secretion SARS-CoV-2 Antigen (Rapid) - Final SARS-CoV-2 (COVID 19) Radiography Diagnostic Testing: Radiology Impression Lumbar Spine MRI 10/28/20 16:53 IMPRESSION: Postoperative changes at the L4-L5 level with hardware fixation. Collapse of the dural sac around the nerves at the L2-L3 and L3-L4 levels which appears to be more due to prominence of the epidural fat adjacent to the laminar junction line rather than facet arthropathy, ligamentum thickening, or disc bulge. 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 This disease is new since the most recent MRI of December 21, 2015 at 2252 Reported and signed by: Don Zamora MD Electronically Signed: Don Zamora MD at 22:50 EDT Tel , Service support , Chest X-Ray 10/29/20 10:09 IMPRESSION: Elevation of the right hemidiaphragm with right middle and lower lobe atelectasis. No other abnormality is present. Electronically Signed: Marco Antonio Sosa MD at 10:54 EDT , Service support , Physical Exam Narrative See subjective. Const alert, oriented x3 and no apparent distress HEENT head/scalp atraumatic, moist oral mucous membranes and oropharynx normal Head and Scalp: normocephalic Eyes PERRL, EOMs intact bilaterally and conjunctivae normal Neck no lymphadenopathy, supple and no JVD Resp normal respiratory effort, no retractions, no use of accessory muscles and clear to auscultation bilaterally Cardio regular rate, regular rhythm, no murmurs and no JVD GI normal to inspection, nondistended, normoactive bowel sounds, soft to palpation, non-tender and non-distended Extremity Extremity Narrative: Sensation intact throughout the lower extremities bilaterally, although patient reports more sensation on the left lower extremity. 3 out of 5 strength on the RLE, 2 out of 5 strength on the LLE. Skin no rashes or lesions noted, no wounds and skin turgor normal Neuro moves all extremities, no focal motor deficits and no sensory deficits noted Neuro Narrative: See extremities. Speech: speech normal Psych affect normal Assessment & Plan Assessment/Plan (1) Depression: (2) Dyslipidemia: (3) Essential hypertension: (4) Hypothyroidism: (5) Fibromyalgia: (6) Osteoarthritis: (7) Intractable back pain: (8) Inability to walk: (9) Lumbosacral spondylolysis: (10) Disc degeneration, lumbosacral: (11) COVID-19: PLAN: 1) Intractable back pain. MRI of the lumbar spine demonstrates postoperative changes at L4/L5, collapse of the dural sac around the nerves between L2 and L4, mild spinal canal stenosis which is apparently new as of most recent MRI in December 2015. Patient has a scheduled appointment on 11/01/[address] Arriola for her back pain. Patient prefers home therapy, however is open to recommendations for SNF. Plan; Tylenol as needed for pain, oxycodone as needed for pain, PT/OT eval ordered, Case management consult ordered. 2) COVID - 19 Rapid Covid antigen positive. Asymptomatic, vital signs stable and patient is afebrile. Currently satting at 94% on 1 L via NC. Chest x-ray demonstrates elevation of the right hemidiaphragm with right middle and lower lobe atelectasis with no other abnormalities noted. CBC and BMP unremarkable. D-dimer not elevated. Patient has allergy to dexamethasone and is not a candidate for remdesivir at this time. Plan; procalcitonin pending, continue Covid isolation, continue to monitor symptoms, Lovenox initiated. 3) HTN Stable, continue home Lasix, losartan and beta-popeye 4) Fibromyalgia Continue gabapentin and diclofenac. 5) Depression Continue Zoloft. DVT prophylaxis - Lovenox Patient seen by Robinson Bernal PA-C, under the supervision of Dr. Michele. Documented by User: Dr. Romina Coats MD 10/29/20 13:04 Objective Data Lab / Micro Data Result Diagrams: 10/29/20 03:30 10/29/20 03:30 Charges/Coding Addendum Addendum: Hospitalist note: I am seeing this patient in conjunction with Robinson Bernal. I independently seen and examined the patient. Progress note above, laboratory data and imaging studies reviewed and I concur with the above treatment plan. Today, patient stated that her back pain is getting better. It is mainly upon standing and walking but almost no pain at rest. Denied chest pain or shortness of breath, denied cough or sputum production. Denied fever or chills. - Physical Exam General: Alert, Oriented x3, Cooperative, No apparent distress. HEENT: Atraumatic, PERRLA, EOMI. Neck: Supple, No JVD, Negative Carotid Bruits, Trachea Midline, Thyroid Normal. Lungs: Diminished breath sounds bilateral, otherwise clear, No rhonchi, No wheeze, No rales. Cardiovascular: Regular rate, Regular Rhythm, Normal S1, Normal S2, PMI Normal. Abdomen: Bowel Sounds Present, Soft, Non Tender, Non-Distended, No Hepato-splenomegaly. Extremities: No clubbing, No cyanosis, No edema Skin: No rashes, No breakdown Neurological: Cranial nerves are intact, neuro grossly intact Vital Signs are stable. Assessment and plan: #1 intractable low back pain: MRI lumbar spine reviewed. She is on Voltaren p.o. and IV Dilaudid as needed for pain. Today, she reported improvement of her low back pain. She mentioned that she used to take MS Contin without any problems. Plan: Start OxyIR as needed for pain, PT OT evaluation and treatment. #2 COVID-19 infection: COVID-19 antigen came back positive. Patient is asymptomatic. Chest x-ray showed no acute findings. She is on room air. She is allergic to Decadron. D-dimer was normal. LFT was unremarkable. Procalcitonin was normal. #3 other chronic medical problems: Stable, continue current medications as above. This note was generated with [employer] software. It may contain incorrect words, spelling, and punctuation that were not noted in checking the note before signing. Visit Charges OBSV E&M: 51555 Subsequent observation care L2
[2020-10-29 12:19] LABS: Procalcitonin < 0.04 ng/mL (0.00-0.09)
[2020-10-29] MEDS: Enoxaparin 40 MG/0.4 ML Syringe SC (13:04)
[2020-10-29] MEDS: oxyCODONE 5 MG Tablet PO (13:17)
--- NOTE | 2020-10-29 15:32 | CASEMGMT ---
TC to [facility] Deana intake, left message with referral for pt for PT and OT and patient is covid positive. Requested call back for acceptance.
[2020-10-29 16:00] VITALS: BP 156/93; PULSE 57; RESP 18; TEMP 36.6; O2SAT 93
--- NOTE | 2020-10-29 17:23 | CASEMGMT ---
DIMITRY RIVERS Assessment (Late entry for 1519) Face to Face with patient for initial transition planning/care coordination assessment. DIMITRY RIVERS introduced self and role at [facility], voices understanding. Care providers, pharmacy, and demographics verified. PCP: Nely Specialists: Britta Arriola, and Roby for chronic back and hip pain Preferred Pharmacy: [facility] in [place] Insurance: [employer] Plan/[facility] Care Prescription Benefit: Yes Living Will/HPOA: Yes/Yes; HPOA is her Constantino followed by her daughters Lilly and Elina but pt states she ideally would want the family to discuss and decide as a group. LNOK: spouse/Constantino Living Arrangements: with spouse; daughter Lilly lives a half mile down the road and their son lives behind them. Pt states Lilly does the grocery shopping and runs errands for them. All of the children assist them as needed. There are 2 steps into their breezeway and three steps into their home. ADLs: Pt was independent with ADLs prior to admission. States her would be able to assist her if needed. 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 DME: Pt uses a rollator, has a shower bench, grab bars in the shower. Denies any further DME including medical alert, canes, w/c, lift chair, hand held shower, raised toilet seat, hospital bed, or BSC. Pt denies any previous home health care or SNF stays. Pt would prefer to return home with home health care services for PT/OT. Pt states she had difficulty sitting on the edge of the bed for her meals and is remaining pain free while lying flat. Pt states she would like to get up and try to walk. Educated pt that PT/OT has been ordered and will be working with her to evaluate her ability to walk, etc. Pt expressed understanding. Noted during assessment pt was on RA and no SOB noted. Pt denies any current respiratory complaints related to her COVID dx. Pt states she has remained home for many months and has not gone anywhere with family providing as noted above. Pt will be able to continue quarantine after discharge. Pt states her is without symptoms. List of Home health agencies with in-network providers highlighted provided to pt including quality and resource use data and consistent with her geographic and medical needs. Pt states her preferred provider is [facility]. Will continue to monitor to determine pt's ability to return home and needed services. Rhys León RN CM
--- NOTE | 2020-10-29 17:37 | CASEMGMT ---
Return call received from Deana from intake at [facility]. Pt is accepted with start of care available on Sunday11/02/20 if HH is determined to be the appropriate discharge plan. Rhys León RN CM
--- NOTE | 2020-10-29 17:39 | CASEMGMT ---
Late entry 1520: [facility]NA[facility]Z form explained re: observation status for treatment of back pain and COVID-19. Explained hospitalization will be paid per insurance policy for Outpatient billing and condition will continue to be evaluated for Inpt necessity. Discussed Pharmacy section of HERNANDEZ form and self administered medication guideline. Pt verbalizes understanding and does not have further questions. Copy of form provided to patient and original placed in chart. Form was not signed by patient due to being in isolation precautions. Rhys León RN CM
[2020-10-29 20:00] VITALS: BP 118/92; PULSE 71; RESP 18; TEMP 36.6; O2SAT 92
[2020-10-29] MEDS: Atenolol 25 MG Tablet PO (21:29)
[2020-10-29] MEDS: Sertraline 50 MG Tablet PO (21:29)
[2020-10-29] MEDS: Gabapentin 300 MG Capsule PO (21:29)
[2020-10-30] VITALS (7 sets, daily range): BP systolic 105–199; BP diastolic 54–100; PULSE 55–71; RESP 16–20; TEMP 36.6–37.1; O2SAT 91–97
[2020-10-30] MEDS: Acetaminophen 500 MG Tablet 1000 MG PO (08:27)
[2020-10-30] MEDS: oxyCODONE 5 MG Tablet PO ×3 (08:28→16:23)
[2020-10-30] MEDS: Enoxaparin 40 MG/0.4 ML Syringe SC (08:28)
[2020-10-30] MEDS: Levothyroxine 112 MCG Tablet PO (08:29)
[2020-10-30] MEDS: Multivitamins,Ther W-Minerals Tablet 1 TABLET PO (08:32)
[2020-10-30] MEDS: Furosemide 40 MG Tablet PO (08:32)
[2020-10-30] MEDS: POTASSIUM CITRATE 5 MEQ TABLET.ER 20 MEQ PO (08:32)
[2020-10-30] MEDS: Loratadine 10 MG Tablet PO (08:33)
[2020-10-30] MEDS: Losartan Potassium 100 MG Tablet PO (08:33)
--- NOTE | 2020-10-30 15:14 | PN.HOSP_ITS ---
Documented by User: Robinson MCGOVERN 10/30/20 15:23 Subjective Subjective Patient is an 80-year-old female lying in bed, alert and orient x3. Patient reports her pain is not controlled on oxycodone and reports continuing pain that is now extending down in her legs. Denies chest pain, shortness of breath, p alpitations, fever, chills, N/V/D. Objective Data Objective Data Vital Signs: Vital Signs Temp Pulse Resp BP Pulse Ox 98.3 F 55 L 16 150/54 H 97 10/30/20 08:41 10/30/20 09:41 10/30/20 09:41 10/30/20 09:41 10/30/20 11:38 Oxygen Flow Rate (L/min) 97 Oxygen Delivery Method Room Air Weight: 228 lb Body Mass Index (BMI) 43.0 Intake & Output: Intake and Output for Last 24 Hours 10/28/20 10/29/20 10/30/20 23:59 23:59 23:59 Intake Total 50.75 / 50.75 340 / 640 540 / 540 Output Total 800 / 800 1400 / 1400 Balance 50.75 / 50.75 -460 / -160 -860 / -860 Lab / Micro Data Result Diagrams: 10/31/20 05:00 10/31/20 05:00 Micro: Microbiology 10/28/20 18:15 Nasal Secretion SARS-CoV-2 Antigen (Rapid) - Final SARS-CoV-2 (COVID 19) Physical Exam Narrative See subjective. Const alert, oriented x3 and no apparent distress HEENT head/scalp atraumatic and moist oral mucous membranes Head and Scalp: normocephalic Eyes PERRL, EOMs intact bilaterally and conjunctivae normal Neck no lymphadenopathy, supple and no JVD Resp normal respiratory effort, no retractions and no use of accessory muscles Cardio regular rate, regular rhythm, no murmurs and no JVD GI normal to inspection, nondistended, normoactive bowel sounds, soft to palpation and non-tender Extremity normal to inspection, full ROM and no clubbing, cyanosis or edema Skin no rashes or lesions noted, no wounds and skin turgor normal Neuro CN's II-XII intact bilaterally Psych affect normal Assessment & Plan Assessment/Plan (1) COVID-19: (2) Disc degeneration, lumbosacral: (3) Lumbosacral spondylolysis: (4) Depression: (5) Dyslipidemia: (6) Essential hypertension: (7) Hypothyroidism: (8) Fibromyalgia: (9) Osteoarthritis: (10) Hiatal hernia with gastroesophageal reflux: (11) Intractable back pain: (12) Inability to walk: PLAN: Patient reports worsening of her back pain that is now progressing and down into her legs. Legs tender to palpation bilaterally. Pain is uncontrolled on current regimen of Tylenol and oxycodone, patient reports that she had a steroid injection performed Dr. Ca in the past that has improved her pain, requesting if she can receive the same injection early. Has appointment with Dr. Ca scheduled for early next week. Orthopedic consult requested. 1) Intractable back pain. MRI of the lumbar spine demonstrates postoperative changes at L4/L5, collapse of the dural sac around the nerves between L2 and L4, mild spinal canal stenosis which is apparently new as of most recent MRI in December 2015. Patient has a scheduled appointment on 11/01/[address] Arriola for her back pain. Plan; Tylenol as needed for pain, oxycodone as needed for pain, PT/OT eval ordered, Case management consult ordered, orthopedic consult requested. 2) COVID - 19 Rapid Covid antigen positive. Asymptomatic, vital signs stable and patient is afebrile. Currently satting at 94% on 1 L via NC. Chest x-ray demonstrates elevation of the right hemidiaphragm with right middle and lower lobe atelect asis with no other abnormalities noted. CBC and BMP unremarkable. D-dimer not elevated. Procalcitonin within normal limits. Patient has allergy to dexamethasone and is not a candidate for remdesivir at this time. Plan; continue Covid isolation, continue to monitor symptoms, Lovenox initiated. 3) HTN Stable, continue home Lasix, losartan and beta-popeye 4) Fibromyalgia Continue gabapentin and diclofenac. 5) Depression Continue Zoloft. DVT prophylaxis - Lovenox Patient seen by Robinson Bernal PA-C, under the supervision of Dr. Coats. Documented by User: Dr. Romina Coats MD 10/31/20 10:47 Objective Data Lab / Micro Data Result Diagrams: 10/31/20 05:00 10/31/20 05:00 Charges/Coding Addendum Addendum: Hospitalist note: I am seeing this patient in conjunction with Robinson Bernal. I independently seen and examined the patient. Progress note above reviewed and I concur with the above treatment plan. Today, she is complaining of back pain, getting worse with ambulation, not controlled with OxyIR. Also, she complained of right hip pain that goes down to her right thigh. This is chronic but acting up today. Her vital signs are stable. - Physical Exam General: Alert, Oriented x3, Cooperative, No apparent distress. HEENT: Atraumatic, PERRLA, EOMI. Neck: Supple, No JVD, Negative Carotid Bruits, Trachea Midline, Thyroid Normal. Lungs: Diminished breath sounds bilateral, otherwise clear, No rhonchi, No wheeze, No rales. Cardiovascular: Regular rate, Regular Rhythm, Normal S1, Normal S2, PMI Normal. Abdomen: Bowel Sounds Present, Soft, Non Tender, Non-Distended, No Hepato- splenomegaly. Extremities: No clubbing, No cyanosis, No edema Skin: No rashes, No breakdown Neurological: Cranial nerves are intact, neuro grossly intact Vital Signs are stable. Assessment and plan: #1 intractable low back pain/right hip pain: Patient does have chronic hip and chronic back pain. MRI lumbar spine reviewed. She is on Voltaren p.o., as needed OxyIR, and IV Dilaudid as needed for pain. Today, her pain is not controlled. Plan: Orthopedic surgery consult, PT OT evaluation and treatment. #2 COVID-19 infection: COVID-19 antigen came back positive. Patient is asymptomatic, remained on room air. Chest x-ray showed no acute findings. She is allergic to Decadron. D-dimer was normal. LFT was unremarkable. Procalcitonin was normal. #3 other chronic medical problems: Stable, continue current medications as above. This note was generated with [employer] software. It may contain incorrect words, spelling, and punctuation that were not noted in checking the note before signing. Visit Charges OBSV E&M: 24477 Subsequent observation care L2
[2020-10-30] MEDS: Sertraline 50 MG Tablet PO (21:16)
[2020-10-30] MEDS: Atenolol 25 MG Tablet PO (21:16)
[2020-10-30] MEDS: Gabapentin 300 MG Capsule PO (21:16)
[2020-10-31] MEDS: oxyCODONE 5 MG Tablet PO ×3 (02:12→16:34)
[2020-10-31 04:00] VITALS: BP 136/88; PULSE 101; RESP 20; TEMP 36.7; O2SAT 94
[2020-10-31 05:54] LABS: Absolute Lymphocyte Count 1.87 X10^3/uL (0.83-4.51); Absolute Neutrophil Count 2.5 X10^3/uL (2.0-7.7); Basophil# 0.04 X10^3/uL; Basophil% 0.8 % (0-1); Eosinophil# 0.19 X10^3/uL; Eosinophils% 3.8 % (0-5); Hematocrit 40.1 % (37-47); Hemoglobin 12.4 g/dL (12.0-15.0); Lymphocyte # 1.87 X10^3/ul (0.83-4.51); Lymphocyte % 37.3 % (19-41); Mean Corp Hgb Conc 30.9 g/dL (32-36); Mean Corpuscular Hgb 29.1 pg (27.0-32.0); Mean Corpuscular Volume 94.1 fL (81-99); Mean Platelet Vol. 10.4 fl (6.2-12.0); Monocyte# 0.37 X10^3/uL; Monocyte% 7.4 % (0-10); NRBC Flagged by Analyzer 0 % (0-5); Neutrophil # 2.53 X10^3/uL (2.7-7.7); Neutrophil % 50.5 % (47-70); Platelet Count 205 K/mm3 (150-450); RBC Distribution Width CV 14.3 % (11.6-14.6); RBC Distribution Width SD 49.3 fl (35.1-43.9); Red Blood Count 4.26 M/mm3 (4.2-5.4)
[2020-10-31 06:10] LABS: Anion Gap 6 (5-15); BUN 20 mg/dL (7-18); BUN/Creat Ratio 22.7 RATIO (10-20); Calcium,Total 8.3 mg/dL (8.5-10.1); Chloride 101 mmol/L (98-107); Creatinine, Serum 0.88 mg/dL (0.55-1.02); EST Glomerular Filtration Rate 66 mL/min (>60); Est Glom Filt Rate - Afr Amer 79 mL/min (>60); Estimated Creatinine Clearance 37.83 ml/min; Glucose 115 mg/dL (74-106); Potassium 3.5 mmol/L (3.5-5.1); Sodium Level 140 mmol/L (136-145)
[2020-10-31 09:40] VITALS: BP 184/75; PULSE 54; RESP 20; TEMP 36.7; O2SAT 94
[2020-10-31] MEDS: Acetaminophen 500 MG Tablet 1000 MG PO ×3 (09:55→21:52)
[2020-10-31] MEDS: Loratadine 10 MG Tablet PO (09:55)
[2020-10-31] MEDS: Multivitamins,Ther W-Minerals Tablet 1 TABLET PO (09:56)
[2020-10-31] MEDS: Furosemide 40 MG Tablet PO (09:56)
[2020-10-31] MEDS: POTASSIUM CITRATE 5 MEQ TABLET.ER 20 MEQ PO (09:56)
[2020-10-31] MEDS: Losartan Potassium 100 MG Tablet PO (09:56)
[2020-10-31] MEDS: Levothyroxine 112 MCG Tablet PO (09:56)
[2020-10-31] MEDS: Enoxaparin 40 MG/0.4 ML Syringe SC (09:57)
--- NOTE | 2020-10-31 10:17 | PCM.DC ---
Discharge Instructions Diet Discharge Diet: No restrictions Activity Discharge Activity: Return to Normal Activity and - (Patient must remain quarantined for 20 days (until November 21, 2020) due to asymptomatic COVID-19 infection. ) Follow Up Care Test Results: Test results from this visit will be discussed in further detail at your follow-up appointment, if applicable. Discharge Plan Admission Admit Date/Time: 10/28/20 16:43 Primary Reason for Your Visit: Fall/Debility Attending Provider: Romina Coats Primary Care Provider: Alfred Mckay Instructions Additional Instructions / Restrictions: Patient must remain quarantined for 20 days (until November 21, 2020) due to asymptomatic COVID-19 infection. Discharge Orders/Prescriptions Prescriptions: New oxycodone 5 mg capsule 5 mg PO Q8H PRN (Reason: pain) 7 Days Qty: 21 RF: 0 Continued furosemide 40 MG tablet 40 mg PO DAILY RF: 0 potassium citrate [Urocit-K 10] 10 MEQ tablet extended release 20 meq PO DAILY RF: 0 losartan [Cozaar] 100 MG tablet 100 mg PO DAILY RF: 0 cholecalciferol (vitamin D3) [Vitamin D3] 2,000 UNIT tablet 4,000 unit PO DAILY RF: 0 multivitamin with folic acid [Thera] 1 TABLET tablet 1 tab PO DAILY RF: 0 Glucosamine-Chondroitin Complx 1 EACH tablet 1 ea PO DAILY RF: 0 atenolol 25 MG tablet 25 mg PO QHS RF: 0 diclofenac sodium 50 MG tablet 50 mg PO BID RF: 0 cetirizine [Zyrtec] 10 mg Tablet 10 mg PO DAILY RF: 0 gabapentin 300 mg capsule 300 mg PO QHS RF: 0 sertraline 50 mg tablet 50 mg PO QHS RF: 0 levothyroxine 112 mcg tablet 112 mcg PO DAILY RF: 0 calcium citrate 1,000 mg Tablet 1,000 mg PO DAILY RF: 0 cinnamon bark [Cinnamon] 500 mg Capsule 1,000 mg PO DAILY RF: 0 Referrals / Follow Up: Ramon Kulkarni MD [STAFF PHYSICIAN] - Within 1 Month (Follow up either telephonically or you may go for an inpatient visit after November 21, 2020. ) Alfred Mckay DO [Primary Care Provider] - Within 1 Month (Follow up either telephonically or you may go for an inpatient visit after November 21, 2020. ) Florentino Ca MD [STAFF PHYSICIAN] - Within 1 Month (Follow up either telephonically or you may go for an inpatient visit after November 21, 2020. ) Disposition Disposition (needs filled in before D/C Order can be placed): Home Health Service
--- NOTE | 2020-10-31 12:02 | DS.PCM_ITS ---
Documented by User: Robinson MCGOVERN 10/31/20 12:24 Providers Date of Admission: 10/28/20 Primary Care Physician: Dr. Alfred Mckay DO Reason For Visit: INTRACTABLE BACK PAIN Diagnosis Discharge Diagnosis (1) COVID-19: Status: Acute Code(s): U07.1 - COVID-19 (2) Disc degeneration, lumbosacral: Status: Acute Code(s): M51.37 - Other intervertebral disc degeneration, lumbosacral region (3) Lumbosacral spondylolysis: Status: Acute Code(s): M43.07 - Spondylolysis, lumbosacral region (4) Depression: Status: Chronic Code(s): F32.9 - Major depressive disorder, single episode, unspecified (5) Dyslipidemia: Status: Chronic Code(s): E78.5 - Hyperlipidemia, unspecified (6) Essential hypertension: Status: Chronic Code(s): I10 - Essential (primary) hypertension (7) Hypothyroidism: Status: Chronic Code(s): E03.9 - Hypothyroidism, unspecified (8) Fibromyalgia: Status: Chronic (9) Osteoarthritis: Status: Chronic (10) Hiatal hernia with gastroesophageal reflux: Status: Chronic Code(s): K21.9 - Gastro-esophageal reflux disease without esophagitis; K44.9 - D iaphragmatic hernia without obstruction or gangrene (11) Intractable back pain: Status: Acute Code(s): M54.9 - Dorsalgia, unspecified (12) Inability to walk: Status: Acute Code(s): R26.2 - Difficulty in walking, not elsewhere classified Medications at Discharge Home Medications Glucosamine-Chondroitin Complx 1 ea PO DAILY 06/02/13 cholecalciferol (vitamin D3) [Vitamin D3] 4,000 unit PO DAILY 06/02/13 furosemide 40 mg PO DAILY 06/02/13 losartan [Cozaar] 100 mg PO DAILY 06/02/13 multivitamin with folic acid [Thera] 1 tab PO DAILY 06/02/13 potassium citrate [Urocit-K 10] 20 meq PO DAILY 06/02/13 atenolol 25 mg PO QHS 07/30/20 diclofenac sodium 50 mg PO BID 07/30/20 calcium citrate 1,000 mg PO DAILY 10/28/20 cetirizine [Zyrtec] 10 mg PO DAILY 10/28/20 cinnamon bark [Cinnamon] 1,000 mg PO DAILY 10/28/20 gabapentin 300 mg PO QHS 10/28/20 levothyroxine 112 mcg PO DAILY 10/28/20 sertraline 50 mg PO QHS 10/28/20 oxycodone 5 mg PO Q8H PRN 7 Days #21 cap 10/31/20 Hospital Course Summary of Care Provided Minutes Spent on Discharge: 35 Hospital Course: Patient strongly advised that she is a candidate for jail care and that she should have ongoing therapy after discharge due to lack of mobility and instability. Patient voiced understanding and said she had no interest in going to jail care. In lieu of patient desires, home health care was set up for patient to continue therapy. Spoke with patient's daughter, Lilly, who expressed concern over patient returning home due to several falling hazards and lack of support from patients . It was explained to patient and patients daughter that these risks have been assessed and that healthcare team recommends jail care after discharge, however, this is not consistent with patients expressed desire. Patient is appropriately alert and oriented and is within capacity to make decisions for herself. 1) Intractable back pain. Orthopedics consulted; no further intervention indicated at this time, follow-up with Dr. Ca as an outpatient. MRI of the lumbar spine demonstrates postoperative changes at L4/L5, collapse of the dural sac around the nerves between L2 and L4, mild spinal canal stenosis which is apparently new as of most recent MRI in December 2015. Plan; oxycodone 5 mg p.o. every 8 as needed initiated on discharge. Follow-up with Dr. Ca and Dr. Arriola either telephonically or in person after 20-day quarantine due to #2. 2) COVID - 19 Rapid Covid antigen positive. Asymptomatic, vital signs stable and patient is afebrile. Currently satting at 94% on RA. Chest x-ray demonstrates elevation of the right hemidiaphragm with right middle and lower lobe atelectasis with no other abnormalities noted. CBC and BMP unremarkable. D-dimer not elevated. Procalcitonin within normal limits. Has not received a COVID-19 vaccination. Patient counseled about the risks of not being vaccinated for COVID-19 to include infection, serious illness or . Patient states that she understands, however has had poor experiences with many different medications and is concerned for an allergic reaction. Patient has allergy to dexamethasone and is not a candidate for remdesivir at this time, therefore not given either of these medications throughout admission. Plan; Patient advised that she is to remain quarantined for 20 days due to COVID-19 infection, and should not break quarantine till after November 21, 2020. 3) HTN Stable, continue home Lasix, losartan and beta-popeye 4) Fibromyalgia Continue gabapentin and diclofenac. 5) Depression Continue Zoloft. Patient seen by Robinson Bernal PA-C, under the supervision of Dr. Coats. Physical Exam Narrative Patient is a 80-year-old female who is resting comfortably in bed, alert and oriented x3. Patient reports that her pain has improved from yesterday and is controlled on current pain regimen. Denies chest pain, shortness of breath, palpitations, hemoptysis, sputum production, fever, chills, N/V/D. Const alert, oriented x3 and no apparent distress Nutritional Appearance: morbidly obese HEENT normocephalic, head/scalp atraumatic and hearing grossly normal bilaterally Eyes PERRL, EOMs intact bilaterally and conjunctivae normal Neck no lymphadenopathy, supple and no JVD Resp normal respiratory effort, no retractions, no use of accessory muscles and clear to auscultation bilaterally Cardio regular rate, regular rhythm, no murmurs and no JVD GI normal to inspection, nondistended, normoactive bowel sounds, soft to palpation and non-tender Extremity normal to inspection, full ROM and no clubbing, cyanosis or edema Skin no rashes or lesions noted, no wounds and skin turgor normal Neuro CN's II-XII intact bilaterally Psych affect normal Weight / BMI Weight Weight: 228 lb Body Mass Index (BMI) 43.0 ABG / Lab / Microbiology Data Result Diagrams: 10/31/20 05:00 10/31/20 05:00 Laboratory: Laboratory Results - last 24 hr 10/31/20 10/31/20 05:00 05:00 WBC 5.0 RBC 4.26 Hgb 12.4 Hct 40.1 MCV 94.1 MCH 29.1 MCHC 30.9 L RDW Std Deviation 49.3 H RDW Coeff of Mary 14.3 Plt Count 205 MPV 10.4 Immature Gran % (Auto) 0.200 Neut % (Auto) 50.5 Lymph % (Auto) 37.3 [place] % (Auto) 7.4 Eos % (Auto) 3.8 Baso % (Auto) 0.8 Absolute Neuts (auto) 2.5 Absolute Lymphs (auto) 1.87 Nucleated RBC % 0 Sodium 140 Potassium 3.5 Chloride 101 Carbon Dioxide 33.0 H Anion Gap 6 BUN 20 H Creatinine 0.88 Estim Creat Clear Calc 37.83 Est GFR (MDRD) Af Amer 79 Est GFR (MDRD) Non-Af 66 BUN/Creatinine Ratio 22.7 H Glucose 115 H Calcium 8.3 L Microbiology: Microbiology 10/28/20 18:15 Nasal Secretion SARS-CoV-2 Antigen (Rapid) - Final SARS-CoV-2 (COVID 19) D/C Instructions Discharge Diet: No restrictions Meaningful Use Info Meaningful Use Diagnoses (Choose all that apply): None applicable Discharge Plan Admission Admit Date/Time: 10/28/20 16:43 Primary Reason for Your Visit: Fall/Debility Attending Provider: Romina Coats Primary Care Provider: Alfred Mckay Instructions Additional Instructions / Restrictions: Patient must remain quarantined for 20 days (until November 21, 2020) due to asymptomatic COVID-19 infection. Discharge Orders/Prescriptions Prescriptions: New oxycodone 5 mg capsule 5 mg PO Q8H PRN (Reason: pain) 7 Days Qty: 21 RF: 0 Continued furosemide 40 MG tablet 40 mg PO DAILY RF: 0 potassium citrate [Urocit-K 10] 10 MEQ tablet extended release 20 meq PO DAILY RF: 0 losartan [Cozaar] 100 MG tablet 100 mg PO DAILY RF: 0 cholecalciferol (vitamin D3) [Vitamin D3] 2,000 UNIT tablet 4,000 unit PO DAILY RF: 0 multivitamin with folic acid [Thera] 1 TABLET tablet 1 tab PO DAILY RF: 0 Glucosamine-Chondroitin Complx 1 EACH tablet 1 ea PO DAILY RF: 0 atenolol 25 MG tablet 25 mg PO QHS RF: 0 diclofenac sodium 50 MG tablet 50 mg PO BID RF: 0 cetirizine [Zyrtec] 10 mg Tablet 10 mg PO DAILY RF: 0 gabapentin 300 mg capsule 300 mg PO QHS RF: 0 sertraline 50 mg tablet 50 mg PO QHS RF: 0 levothyroxine 112 mcg tablet 112 mcg PO DAILY RF: 0 calcium citrate 1,000 mg Tablet 1,000 mg PO DAILY RF: 0 cinnamon bark [Cinnamon] 500 mg Capsule 1,000 mg PO DAILY RF: 0 Referrals / Follow Up: Ramon Kulkarni MD [STAFF PHYSICIAN] - Within 1 Month (Follow up either telephonically or you may go for an inpatient visit after November 21, 2020. ) Alfred Mckay DO [Primary Care Provider] - Within 1 Month (Follow up either telephonically or you may go for an inpatient visit after November 21, 2020. ) Florentino Ca MD [STAFF PHYSICIAN] - Within 1 Month (Follow up either telephonically or you may go for an inpatient visit after November 21, 2020. ) Disposition Disposition (needs filled in before D/C Order can be placed): Home Health Service Documented by User: Dr. Romina Coats MD 10/31/20 12:43 Providers Date of Admission: 10/28/20 Reason For Visit: INTRACTABLE BACK PAIN Medications at Discharge Home Medications Glucosamine-Chondroitin Complx 1 ea PO DAILY 06/02/13 cholecalciferol (vitamin D3) [Vitamin D3] 4,000 unit PO DAILY 06/02/13 furosemide 40 mg PO DAILY 06/02/13 losartan [Cozaar] 100 mg PO DAILY 06/02/13 multivitamin with folic acid [Thera] 1 tab PO DAILY 06/02/13 potassium citrate [Urocit-K 10] 20 meq PO DAILY 06/02/13 atenolol 25 mg PO QHS 07/30/20 diclofenac sodium 50 mg PO BID 07/30/20 calcium citrate 1,000 mg PO DAILY 10/28/20 cetirizine [Zyrtec] 10 mg PO DAILY 10/28/20 cinnamon bark [Cinnamon] 1,000 mg PO DAILY 10/28/20 gabapentin 300 mg PO QHS 10/28/20 levothyroxine 112 mcg PO DAILY 10/28/20 sertraline 50 mg PO QHS 10/28/20 oxycodone 5 mg PO Q8H PRN 7 Days #21 cap 10/31/20 ABG / Lab / Microbiology Data Result Diagrams: 10/31/20 05:00 10/31/20 05:00 Discharge Plan Admission Admit Date/Time: 10/28/20 16:43 Primary Reason for Your Visit: Fall/Debility Attending Provider: Romina Coats Primary Care Provider: Alfred Mckay Instructions Additional Instructions / Restrictions: Patient must remain quarantined for 20 days (until November 21, 2020) due to asymptomatic COVID-19 infection. Discharge Orders/Prescriptions Prescriptions: New oxycodone 5 mg capsule 5 mg PO Q8H PRN (Reason: pain) 7 Days Qty: 21 RF: 0 Continued furosemide 40 MG tablet 40 mg PO DAILY RF: 0 potassium citrate [Urocit-K 10] 10 MEQ tablet extended release 20 meq PO DAILY RF: 0 losartan [Cozaar] 100 MG tablet 100 mg PO DAILY RF: 0 cholecalciferol (vitamin D3) [Vitamin D3] 2,000 UNIT tablet 4,000 unit PO DAILY RF: 0 multivitamin with folic acid [Thera] 1 TABLET tablet 1 tab PO DAILY RF: 0 Glucosamine-Chondroitin Complx 1 EACH tablet 1 ea PO DAILY RF: 0 atenolol 25 MG tablet 25 mg PO QHS RF: 0 diclofenac sodium 50 MG tablet 50 mg PO BID RF: 0 cetirizine [Zyrtec] 10 mg Tablet 10 mg PO DAILY RF: 0 gabapentin 300 mg capsule 300 mg PO QHS RF: 0 sertraline 50 mg tablet 50 mg PO QHS RF: 0 levothyroxine 112 mcg tablet 112 mcg PO DAILY RF: 0 calcium citrate 1,000 mg Tablet 1,000 mg PO DAILY RF: 0 cinnamon bark [Cinnamon] 500 mg Capsule 1,000 mg PO DAILY RF: 0 Referrals / Follow Up: Ramon Kulkarni MD [STAFF PHYSICIAN] - Within 1 Month (Follow up either telephonically or you may go for an inpatient visit after November 21, 2020. ) Alfred Mckay DO [Primary Care Provider] - Within 1 Month (Follow up either telephonically or you may go for an inpatient visit after November 21, 2020. ) Florentino Ca MD [STAFF PHYSICIAN] - Within 1 Month (Follow up either telephonically or you may go for an inpatient visit after November 21, 2020. ) Disposition Disposition (needs filled in before D/C Order can be placed): Home Health Service Charges/Coding Addendum Addendum: Hospitalist note: Discharge summary above reviewed and I concur with the above discharge and treatment plan. Patient presented to the emergency room because of intractable low back pain in the setting of chronic back pain and she was admitted for conservative treatment. She had MRI lumbar spine done that revealed postoperative changes at L4-L5 with hardware fixation, collapse of the dural sac around the nerves at L2-L3 and L3-L4 levels, mild canal stenosis. She was treated conservatively with Tylenol, Voltaren tablets and OxyIR as needed for pain. Her routine blood work was unremarkable. She had COVID-19 antigen test done and that came back positive. Patient had no respiratory complaints whatsoever. Chest x-ray showed no acute infiltrate or consolidation. Patient remained febrile throughout admission and she remained on room air. Patient was allergic to Decadron and actually, there was no indication for treatment. She did not receive her COVID-19 vaccine yet. Her LFT, D-dimer and procalcitonin were normal. With the medication, her back pain improved although she kept having some back pain upon ambulation. Patient stated that her back pain at rest is minimal but with ambulation, it goes up and it has been manageable according to nursing staff. She has been following up with Dr. Arriola and Dr. Ca. Regarding COVID-19, patient remains a stable, on room air and she has no symptoms. Patient discharged home with home health in a stable medical condition, discharged on OxyIR as needed for pain, continued on her previous home medications without any changes, recommended to quarantine herself to complete total of 20 days starting onset of symptoms, plan to follow-up with Dr. Arriola as outpatient uncontrolled with PCP 1 to 2 weeks. - Physical Exam General: Alert, Oriented x3, Cooperative, No apparent distress. HEENT: Atraumatic, PERRLA, EOMI. Neck: Supple, No JVD, Negative Carotid Bruits, Trachea Midline, Thyroid Normal. Lungs: Clear to auscultation, Normal air movement, No rhonchi, No wheeze, No rales. Cardiovascular: Regular rate, Regular Rhythm, Normal S1, Normal S2, PMI Normal. Abdomen: Bowel Sounds Present, Soft, Non Tender, Non-Distended, No Hepato- splenomegaly. Extremities: No clubbing, No cyanosis, No edema Skin: No rashes, No breakdown Neurological: Cranial nerves are intact, neuro grossly intact Vital Signs are stable. This note was generated with [employer] dictation software. It may contain incorrect words, spelling, and punctuation that were not noted in checking the note before signing. Visit Charges OBSV E&M: 74130 Observation care discharge
[2020-10-31 14:19] VITALS: BP 177/75; PULSE 54; RESP 18; TEMP 36.6; O2SAT 94
--- NOTE | 2020-10-31 14:20 | PN.HOSP_ITS ---
Documented by User: Robinson MCGOVERN 10/31/20 14:25 Subjective Subjective Patient is an 80-year-old female comfortably resting in bed, alert and orient x3. Patient reports marked improvement in her pain from yesterday and reports that pain is now controlled on current pain regimen. Denies chest pain, short ness of breath, palpitations, fever, chills, N/V/D. Objective Data Objective Data Vital Signs: Vital Signs Temp Pulse Resp BP Pulse Ox 98.1 F 54 L 20 H 184/75 H 94 10/31/20 09:40 10/31/20 09:40 10/31/20 09:40 10/31/20 09:40 10/31/20 09:40 Oxygen Flow Rate (L/min) 97 Oxygen Delivery Method Room Air Weight: 228 lb Body Mass Index (BMI) 43.0 Intake & Output: Intake and Output for Last 24 Hours 10/29/20 10/30/20 10/31/20 23:59 23:59 23:59 Intake Total 340 / 640 780 / 1140 360 / 360 Output Total 800 / 800 1900 / 1900 250 / 250 Balance -460 / -160 -1120 / -760 110 / 110 Lab / Micro Data Result Diagrams: 10/31/20 05:00 10/31/20 05:00 Labs: Laboratory Results - last 24 hr 10/31/20 10/31/20 05:00 05:00 WBC 5.0 RBC 4.26 Hgb 12.4 Hct 40.1 MCV 94.1 MCH 29.1 MCHC 30.9 L RDW Std Deviation 49.3 H RDW Coeff of Mary 14.3 Plt Count 205 MPV 10.4 Immature Gran % (Auto) 0.200 Neut % (Auto) 50.5 Lymph % (Auto) 37.3 [place] % (Auto) 7.4 Eos % (Auto) 3.8 Baso % (Auto) 0.8 Absolute Neuts (auto) 2.5 Absolute Lymphs (auto) 1.87 Nucleated RBC % 0 Sodium 140 Potassium 3.5 Chloride 101 Carbon Dioxide 33.0 H Anion Gap 6 BUN 20 H Creatinine 0.88 Estim Creat Clear Calc 37.83 Est GFR (MDRD) Af Amer 79 Est GFR (MDRD) Non-Af 66 BUN/Creatinine Ratio 22.7 H Glucose 115 H Calcium 8.3 L Micro: Microbiology 10/28/20 18:15 Nasal Secretion SARS-CoV-2 Antigen (Rapid) - Final SARS-CoV-2 (COVID 19) Physical Exam Const alert, oriented x3 and no apparent distress HEENT head/scalp atraumatic Head and Scalp: normocephalic Eyes PERRL, EOMs intact bilaterally and conjunctivae normal Neck no lymphadenopathy, supple and no JVD Resp normal respiratory effort, no retractions and no use of accessory muscles Cardio regular rate, regular rhythm, no murmurs and no JVD GI normal to inspection, nondistended, normoactive bowel sounds Extremity normal to inspection Extremity Narrative: Limited range of motion in the lower extremities bilaterally. Skin no rashes or lesions noted, no wounds and skin turgor normal Neuro CN's II-XII intact bilaterally Psych affect normal Assessment & Plan Assessment/Plan (1) Intractable back pain: PLAN: Patient was scheduled to be discharged today, however patient changed her mind last minute and now would like to temporarily be placed in a [facility] facility. 1) Intractable back pain. Orthopedics consulted; no further intervention indicated at this time, follow-up with Dr. Ca as an outpatient. MRI of the lumbar spine demonstrates postoperative changes at L4/L5, collapse of the dural sac around the nerves between L2 and L4, mild spinal canal stenosis which is apparently new as of most recent MRI in December 2015. Plan; oxycodone as needed, Tylenol 1000 every 8 hours. 2) COVID - 19 Rapid Covid antigen positive. Asymptomatic, vital signs stable and patient is afebrile. Currently satting at 94% on RA. Chest x-ray demonstrates elevation of the right hemidiaphragm with right middle and lower lobe atelectasis with no other abnormalities noted. CBC and BMP unremarkable. D-dimer not elevated. Procalcitonin within normal limits. Has not received a COVID-19 vaccination. Patient counseled about the risks of not being vaccinated for COVID-19 to inclu de infection, serious illness or . Patient states that she understands, however has had poor experiences with many different medications and is concerned for an allergic reaction. Patient has allergy to dexamethasone and is not a candidate for remdesivir at this time, therefore not given either of these medications throughout admission. Plan; continue to monitor for progression of symptoms. 3) HTN Stable, continue home Lasix, losartan and beta-popeye 4) Fibromyalgia Continue gabapentin and diclofenac. 5) Depression Continue Zoloft. Patient seen by Robinson Bernal PA-C, under the supervision of Dr. Coats. Documented by User: Dr. Romina Coats MD 10/31/20 14:31 Objective Data Lab / Micro Data Result Diagrams: 10/31/20 05:00 10/31/20 05:00 Charges/Coding Addendum Addendum: Hospitalist note: I am seeing this patient in conjunction with Robinson Bernal. I independently seen and examined the patient. Progress note above reviewed and I concur with the above treatment plan. Today, back pain is getting better at rest, still having some back pain upon ambulation but she was able to ambulate to the bathroom according to the nursing staff. Initially, patient was agreed to go home with home health and OxyIR as needed for pain. Apparently, she spoke to her daughter and then she decided to change her mind and now [facility]. Her vital signs are stable. - Physical Exam General: Alert, Oriented x3, Cooperative, No apparent distress. HEENT: Atraumatic, PERRLA, EOMI. Neck: Supple, No JVD, Negative Carotid Bruits, Trachea Midline, Thyroid Normal. Lungs: Diminished breath sounds bilateral, otherwise clear, No rhonchi, No wheeze, No rales. Cardiovascular: Regular rate, Regular Rhythm, Normal S1, Normal S2, PMI Normal. Abdomen: Bowel Sounds Present, Soft, Non Tender, Non-Distended, No Hepato-splenomegaly. Extremities: No clubbing, No cyanosis, No edema Skin: No rashes, No breakdown Neurological: Cranial nerves are intact, neuro grossly intact Vital Signs are stable. Assessment and plan: #1 intractable low back pain/right hip pain: Patient does have chronic hip and chronic back pain. MRI lumbar spine reviewed. She is on Voltaren p.o., as needed OxyIR, and IV Dilaudid as needed for pain. Today, pain is getting better but still having difficulty ambulation because of pain. Initially, she agreed to go home with home health and follow-up with Dr. Arriola and Dr. Ca as outpatient. Later, patient changed her mind and now she wanted to be placed to [facility] facility. Orthopedic surgery consulted and Dr. Callejas stated that he can see her as outpatient. Plan: Consult social service agency director and case management for placement to [facility] facility. #2 COVID-19 infection: COVID-19 antigen came back positive. Patient is asymptomatic, remained on room air. Chest x-ray showed no acute findings. She is allergic to Decadron. D-dimer was normal. LFT was unremarkable. Procalcitonin was normal. #3 other chronic medical problems: Stable, continue current medications as above. This note was generated with [employer] dictation software. It may contain incorrect words, spelling, and punctuation that were not noted in checking the note before signing. Visit Charges OBSV E&M: 07670 Subsequent observation care L2
[2020-10-31] MEDS: 0.9% Saline Lock 10 ML Syringe IV (14:27)
--- NOTE | 2020-10-31 18:17 | CON.PCM.OR_ITS ---
HPI Consult Data Date of Consult: 10/31/20 HPI Narrative Reason for Consultation: Acute exacerbation of chronic low back pain with radiculopathy HPI Narrative: JESSICA SHANNON, is a 80 F with complaints of exacerbation of chronic low back pain radiating to the right lower extremity. She does have a history of chronic low back pain. However, she states that over the past week or so her pain has increased. She describes aching pain in the lumbosacral region radiating to the right lateral hip and right anterolateral thigh that is worse with activity and relieved with rest. She denies any acute numbness tingling weakness or changes in bowel or bladder function. She states that the pain got to the point where she presented to [facility] emergency department and she was subsequently admitted for pain control. She was complaining of a sore throat and a COVID-19 test was performed which was positive. She is now admitted to the ICU. The patient is sitting up in a chair resting comfortably eating. She is in no acute distress. She has been mobilizing with physical therapy. A lumbar MRI has been performed on 10/28/2020 [facility] Medical History Back pain HTN (hypertension) Hyperlipidemia Hypothyroid Non-smoker Ovarian cyst Home Medications Glucosamine-Chondroitin Complx 1 ea PO DAILY 06/02/13 [History Last Taken 10/27/20] cholecalciferol (vitamin D3) [Vitamin D3] 4,000 unit PO DAILY 06/02/13 [History Last Taken 10/27/20] furosemide 40 mg PO DAILY 06/02/13 [History Last Taken 10/27/20] losartan [Cozaar] 100 mg PO DAILY 06/02/13 [History Last Taken 10/28/20] multivitamin with folic acid [Thera] 1 tab PO DAILY 06/02/13 [History Last Taken 10/27/20] potassium citrate [Urocit-K 10] 20 meq PO DAILY 06/02/13 [History Last Taken 10/28/20] atenolol 25 mg PO QHS 07/30/20 [History Last Taken 10/27/20] diclofenac sodium 50 mg PO BID 07/30/20 [History Last Taken 10/28/20] calcium citrate 1,000 mg PO DAILY 10/28/20 [History Last Taken 10/27/20] cetirizine [Zyrtec] 10 mg PO DAILY 10/28/20 [History Last Taken 10/28/20] cinnamon bark [Cinnamon] 1,000 mg PO DAILY 10/28/20 [History Last Taken 10/27/20] gabapentin 300 mg PO QHS 10/28/20 [History Last Taken 10/27/20] levothyroxine 112 mcg PO DAILY 10/28/20 [History Last Taken 10/28/20] sertraline 50 mg PO QHS 10/28/20 [History Last Taken 10/27/20] oxycodone 5 mg PO Q8H PRN 7 Days #21 cap 10/31/20 [Rx Last Taken Unknown] Allergy/AdvReac Type Severity Reaction Status Date / Time codeine phosphate Allergy Severe Rash Verified 10/28/20 14:26 [From Tylenol-Codeine #3] diazepam [From Valium] Allergy Severe Rash Verified 10/28/20 14:26 prochlorperazine edisylate Allergy Severe Other Verified 10/28/20 14:26 [From Compazine] prochlorperazine maleate Allergy Severe Other Verified 10/28/20 14:26 [From Compazine] amoxicillin trihydrate Allergy Rash Verified 10/28/20 14:26 [From Augmentin] ampicillin Allergy Rash Verified 10/28/20 14:26 cephalexin monohydrate Allergy Rash Verified 10/28/20 14:26 [From Keflex] chlorpheniramine maleate Allergy Rash Verified 10/28/20 14:26 [From Chlor-Trimeton] dexamethasone [From Decadron] Allergy Other Verified 10/28/20 14:26 dexamethasone sod phosphate Allergy Other Verified 10/28/20 14:26 [From Decadron] levofloxacin [From Levaquin] Allergy Rash Verified 10/28/20 14:26 lorazepam [From Ativan] Allergy Rash Verified 10/28/20 14:26 Penicillins Allergy Rash Verified 10/28/20 14:26 potassium clavulanate Allergy Rash Verified 10/28/20 14:26 [From Augmentin] Surgical History History of appendectomy History of hysterectomy Hx of cholecystectomy Hx of tonsillectomy Social History Smoking Status: Never smoker Vital Signs Vital Signs Vital Signs: 10/30/20 21:49 10/30/20 21:50 10/30/20 21:52 Temperature 98.1 F Temperature Source Oral Pulse Rate 69 Pulse Strength Weak (1+) Respiratory Rate 20 H Respiratory Effort Short of Breath Blood Pressure 134/75 H Blood Pressure Mean 94 Blood Pressure Source Monitor Blood Pressure Position Semi-Fowlers Blood Pressure Location Right Arm Pulse Ox 92 Oxygen Delivery Method Room Air Room Air 10/31/20 04:00 10/31/20 07:11 10/31/20 09:40 Temperature 98.1 F 98.1 F Temperature Source Oral Oral Pulse Rate 101 H 54 L Pulse Strength Respiratory Rate 20 H 20 H Respiratory Effort Blood Pressure 136/88 H 184/75 H Blood Pressure Mean 104 111 Blood Pressure Source Monitor Monitor Blood Pressure Position Semi-Fowlers Semi-Fowlers Blood Pressure Location Right Arm Right Arm Pulse Ox 94 94 Oxygen Delivery Method Room Air Room Air Room Air 10/31/20 10:00 10/31/20 14:19 Temperature 97.9 F Temperature Source Oral Pulse Rate 54 L Pulse Strength Weak (1+) Respiratory Rate 18 Respiratory Effort Blood Pressure 177/75 H Blood Pressure Mean 109 Blood Pressure Source Monitor Blood Pressure Position Semi-Fowlers Blood Pressure Location Right Forearm Pulse Ox 94 Oxygen Delivery Method Room Air Weight Weight: 228 lb Body Mass Index (BMI) 43.0 Physical Exam Neck full ROM and supple General: normal visual inspection; Negative for tenderness GI normal to inspection, nondistended, normoactive bowel sounds, soft to palpation, non-tender and non-distended Back/Spine Back/Spine Narrative: Mild tenderness to palpation of the lower lumbar paravertebral region bilaterally Thoracic Spine / Upper Back: normal to inspection; Negative for thoracic spinal tenderness Lumbar Spine / Lower Back: ROM limited Extremity normal to inspection, normal capillary refill, no clubbing, cyanosis or edema and no calf tenderness Extremity Narrative: Mild tenderness of the right greater trochanteric region. Mild pain on right hip range of motion. Peripheral Pulses: Yes pulses 2+ throughout Skin Skin Narrative: There is a 4 inch vertical midline scar that is well-healed. No tenderness erythema drainage or fluctuance. General Skin Exam: no breakdown Neuro oriented x3, CN's II-XII intact bilaterally, moves all extremities, no focal motor deficits, no sensory deficits noted and deep tendon reflexes 2+ bilaterally Sensorium / Orientation: awake, alert, oriented to person, oriented to place and oriented to time Speech: speech normal Motor Exam: strength 5/5 throughout, muscle tone normal throughout and clonus absent Lab / Micro Data Result Diagrams: 10/31/20 05:00 10/31/20 05:00 Labs: Laboratory Results - last 24 hr 10/31/20 10/31/20 05:00 05:00 WBC 5.0 RBC 4.26 Hgb 12.4 Hct 40.1 MCV 94.1 MCH 29.1 MCHC 30.9 L RDW Std Deviation 49.3 H RDW Coeff of Mary 14.3 Plt Count 205 MPV 10.4 Immature Gran % (Auto) 0.200 Neut % (Auto) 50.5 Lymph % (Auto) 37.3 [place] % (Auto) 7.4 Eos % (Auto) 3.8 Baso % (Auto) 0.8 Absolute Neuts (auto) 2.5 Absolute Lymphs (auto) 1.87 Nucleated RBC % 0 Sodium 140 Potassium 3.5 Chloride 101 Carbon Dioxide 33.0 H Anion Gap 6 BUN 20 H Creatinine 0.88 Estim Creat Clear Calc 37.83 Est GFR (MDRD) Af Amer 79 Est GFR (MDRD) Non-Af 66 BUN/Creatinine Ratio 22.7 H Glucose 115 H Calcium 8.3 L Assessment & Plan Assessment/Plan (1) Disc degeneration, lumbosacral: PLAN: I had a lengthy discussion with the patient. I reviewed her imaging with her: Lumbar MRI dated 10/28/2020 she has good overall alignment in the coronal and sagittal planes. No gross instability is noted. Surgical changes from prior L4-5 instrumented fusion. All hardware is intact and in acceptable alignment. There are severe degenerative changes above this fusion at L3-4 with loss of disc height and facet arthrosis. There is moderate to severe central canal stenosis and bilateral subarticular stenosis. The radiologist has also commented on possible arachnoiditis at this level. At L2-3 there is mild to moderate loss of disc height and signal. There is minimal posterior disc bulge. There is minimal central canal stenosis. There is moderate to severe bilateral facet arthrosis. There is mild bilateral subarticular stenosis. At L1-2 there is mild to moderate loss of disc height and signal. There is minimal posterior disc bulge and no central canal stenosis. There is mild to m oderate bilateral facet arthrosis. There is minimal subarticular or foraminal stenosis. She does have significant degenerative changes adjacent to her prior L4-5 fusion with associated stenosis which I feel are contributing to her complaints. At this point I recommend continuing pain control and mobilization. She is scheduled to be discharged to an extended care facility. I do not recommend s urgery or injections at this time given her diagnosis of positive COVID-19. She will continue to follow-up with Dr. Escalona as needed for pain management. She will follow up in my clinic should she decide to discuss surgical treatment options. She understands and agrees with the treatment plan. (2) Lumbosacral spondylolysis: (3) Chronic back pain:
[2020-10-31 20:00] VITALS: BP 134/66; PULSE 66; RESP 20; TEMP 37.1; O2SAT 95
[2020-10-31] MEDS: Sertraline 50 MG Tablet PO (21:52)
[2020-10-31] MEDS: Atenolol 25 MG Tablet PO (21:52)
[2020-10-31] MEDS: Gabapentin 300 MG Capsule PO (21:52)
[2020-11-01] VITALS (9 sets, daily range): BP systolic 135–194; BP diastolic 47–93; PULSE 50–66; RESP 16–18; TEMP 36.8–37; O2SAT 92–94
[2020-11-01] MEDS: Acetaminophen 500 MG Tablet 1000 MG PO ×3 (05:07→20:16)
[2020-11-01 05:11] LABS: Absolute Lymphocyte Count 2.23 X10^3/uL (0.83-4.51); Absolute Neutrophil Count 1.9 X10^3/uL (2.0-7.7); Basophil# 0.02 X10^3/uL; Basophil% 0.4 % (0-1); Eosinophil# 0.24 X10^3/uL; Eosinophils% 5.1 % (0-5); Hematocrit 39.5 % (37-47); Hemoglobin 12.5 g/dL (12.0-15.0); Lymphocyte # 2.23 X10^3/ul (0.83-4.51); Lymphocyte % 47.1 % (19-41); Mean Corp Hgb Conc 31.6 g/dL (32-36); Mean Corpuscular Hgb 29.8 pg (27.0-32.0); Mean Platelet Vol. 10.4 fl (6.2-12.0); Monocyte# 0.34 X10^3/uL; Monocyte% 7.2 % (0-10); NRBC Flagged by Analyzer 0 % (0-5); Neutrophil # 1.89 X10^3/uL (2.7-7.7); Platelet Count 195 K/mm3 (150-450); RBC Distribution Width CV 14.2 % (11.6-14.6); White Blood Count 4.7 K/mm3 (4.4-11.0)
[2020-11-01 05:25] LABS: Anion Gap 6 (5-15); BUN 21 mg/dL (7-18); BUN/Creat Ratio 25.8 RATIO (10-20); Calcium,Total 8.3 mg/dL (8.5-10.1); Chloride 101 mmol/L (98-107); Creatinine, Serum 0.81 mg/dL (0.55-1.02); EST Glomerular Filtration Rate 72 mL/min (>60); Est Glom Filt Rate - Afr Amer 87 mL/min (>60); Glucose 80 mg/dL (74-106); Potassium 3.8 mmol/L (3.5-5.1); Sodium Level 140 mmol/L (136-145)
[2020-11-01] MEDS: POTASSIUM CITRATE 5 MEQ TABLET.ER 20 MEQ PO (08:49)
[2020-11-01] MEDS: Multivitamins,Ther W-Minerals Tablet 1 TABLET PO (08:50)
[2020-11-01] MEDS: Enoxaparin 40 MG/0.4 ML Syringe SC (08:50)
[2020-11-01] MEDS: Loratadine 10 MG Tablet PO (08:50)
[2020-11-01] MEDS: Losartan Potassium 100 MG Tablet PO (08:50)
[2020-11-01] MEDS: oxyCODONE 5 MG Tablet PO ×3 (08:50→23:29)
[2020-11-01] MEDS: Levothyroxine 112 MCG Tablet PO (08:50)
[2020-11-01] MEDS: Furosemide 40 MG Tablet PO (08:50)
--- NOTE | 2020-11-01 11:25 | PCM.PN.HOSP ---
Documented by User: Robinson MCGOVERN 11/01/20 11:30 Subjective Subjective Patient is an 80-year-old female who is comfortably resting in bed, alert and oriented x3. Patient denies any change or progression of symptoms from yesterday. Denies chest pain, shortness of breath, palpitations, hemoptysis, sputum production, fever, chills, N/V/D. Objective Data Objective Data Vital Signs: Vital Signs Temp Pulse Resp BP Pulse Ox 98.2 F 62 18 142/61 H 94 11/01/20 08:45 11/01/20 08:45 11/01/20 08:45 11/01/20 10:11 11/01/20 08:45 Oxygen Flow Rate (L/min) 97 Oxygen Delivery Method Room Air Weight: 228 lb Body Mass Index (BMI) 43.0 Intake & Output: Intake and Output for Last 24 Hours 10/30/20 10/31/20 11/01/20 23:59 23:59 23:59 Intake Total 780 / 1140 1780 / 1780 Output Total 1900 / 1900 650 / 650 Balance -1120 / -760 1130 / 1130 Lab / Micro Data Result Diagrams: 11/01/20 04:26 11/01/20 04:26 Labs: Laboratory Results - last 24 hr 11/01/20 11/01/20 04:26 04:26 WBC 4.7 RBC 4.20 Hgb 12.5 Hct 39.5 MCV 94.0 MCH 29.8 MCHC 31.6 L RDW Std Deviation 48.0 H RDW Coeff of Mary 14.2 Plt Count 195 MPV 10.4 Immature Gran % (Auto) 0.200 Neut % (Auto) 40.0 L Lymph % (Auto) 47.1 H [place] % (Auto) 7.2 Eos % (Auto) 5.1 H Baso % (Auto) 0.4 Absolute Neuts (auto) 1.9 L Absolute Lymphs (auto) 2.23 Nucleated RBC % 0 Sodium 140 Potassium 3.8 Chloride 101 Carbon Dioxide 33.0 H Anion Gap 6 BUN 21 H Creatinine 0.81 Estim Creat Clear Calc 41.10 Est GFR (MDRD) Af Amer 87 Est GFR (MDRD) Non-Af 72 BUN/Creatinine Ratio 25.8 H Glucose 80 Calcium 8.3 L Micro: Microbiology 10/28/20 18:15 Nasal Secretion SARS-CoV-2 Antigen (Rapid) - Final SARS-CoV-2 (COVID 19) Physical Exam Const alert, oriented x3 and no apparent distress HEENT head/scalp atraumatic and moist oral mucous membranes Head and Scalp: normocephalic Eyes PERRL, EOMs intact bilaterally and conjunctivae normal Neck no lymphadenopathy, supple and no JVD Resp normal respiratory effort, no retractions and no use of accessory muscles Cardio regular rate, regular rhythm, no murmurs and no JVD GI normal to inspection, nondistended, normoactive bowel sounds and soft to palpation Extremity normal to inspection Skin no rashes or lesions noted and no wounds Neuro CN's II-XII intact bilaterally Psych affect normal Assessment & Plan Assessment/Plan (1) Chronic back pain: (2) COVID-19: (3) Disc degeneration, lumbosacral: (4) Lumbosacral spondylolysis: (5) Depression: (6) Dyslipidemia: (7) Essential hypertension: (8) Hypothyroidism: (9) Fibromyalgia: (10) Osteoarthritis: (11) Hiatal hernia with gastroesophageal reflux: (12) Intractable back pain: (13) Inability to walk: PLAN: See subjective for patient presentation. Discharge planning: Case management and social work consulted for disposition to SNF. 1) Intractable back pain. Orthopedics consulted; no further intervention indicated at this time, follow-up with Dr. Ca as an outpatient. MRI of the lumbar spine demonstrates postoperative changes at L4/L5, collapse of the dural sac around the nerves between L2 and L4, mild spinal canal stenosis which is apparently new as of most recent MRI in December 2015. Plan; oxycodone as needed, Tylenol 1000 every 8 hours. 2) COVID - 19 Rapid Covid antigen positive. Asymptomatic, vital signs stable and patient is afebrile. Currently satting at 94% on RA. Chest x-ray demonstrates elevation of the right hemidiaphragm with right middle and lower lobe atelectasis with no other abnormalities noted. CBC and BMP unremarkable. D-dimer not elevated. Procalcitonin within normal limits. Has not received a COVID-19 vaccination. Patient counseled about the risks of not being vaccinated for COVID-19 to include infection, serious illness or . Patient states that she understands, however has had poor experiences with many different medications and is concerned for an allergic reaction. Patient has allergy to dexamethasone and is not a candidate for remdesivir at this time, therefore not given either of these medications throughout admission. Plan; continue to monitor for progression of symptoms. 3) HTN Stable, continue home Lasix, losartan and beta-popeye 4) Fibromyalgia Continue gabapentin and diclofenac. 5) Depression Continue Zoloft. Patient seen by Robinson Bernal PA-C, under the supervision of Dr. Toth. Documented by User: Dr. Carline Toth MD 11/01/20 16:13 Objective Data Lab / Micro Data Result Diagrams: 11/01/20 04:26 11/01/20 04:26 Charges/Coding Addendum Addendum: Patient seen by Robinson Bernal PA-C under my supervision Patient seen and examined. She complains of pain in the RLE after she tried going to the bathroom. Review of systems otherwise negative. She has remained hemodynamically stable. O/E: Const alert, oriented x3 and no apparent distress HEENT head/scalp atraumatic and moist oral mucous membranes Head and Scalp: normocephalic Eyes PERRL, EOMs intact bilaterally and conjunctivae normal Neck no lymphadenopathy, supple and no JVD Resp normal respiratory effort, no retractions and no use of accessory muscles Cardio regular rate, regular rhythm, no murmurs and no JVD GI normal to inspection, nondistended, normoactive bowel sounds and soft to palpation Extremity normal to inspection Skin no rashes or lesions noted and no wounds Neuro CN's II-XII intact bilaterally Psych affect normal Patient awaiting placement as she is now amenable to going to a care home facility. PT OT on board. Fall precautions. To follow-up with orthopedic surgery on outpatient basis. Patient is still on room air and is stable with respect to Covid. She is not a candidate for remdesivir and is also an allergy to dexamethasone. Rest as per Robinson Bernal PA-C's notes which I reviewed and endorsed. Visit Charges Inpatient E&M: 30891 Subs Hosp L2
--- NOTE | 2020-11-01 14:41 | CASEMGMT ---
Social Work CVICU Received consult from data entry manager regarding SNF placement. Patient was slated for discharge home with home health over the weekend, but patient and family voiced concerns about this plan and wanted short term SNF. Chart reviewed. Looked up patient's insurance online and found SNF's in-network with the insurance. Cross referenced to list of SNF's taking COVID positive diagnosis, leaving 4 nursing facilities. Met with patient in room. Provided list of SNF's taking COVID positive diagnosis, in [facility] and [facility], highlighting the facilities in-network with patient's insurance. Patient reports agreement with plan for short term SNF and asked this feature writer to continue conversation with beverly Carr to determine specifics with referrals. Patient does prefer to stay in [facility] if possible. Supportive listening and encouragement provided. Called beverly Carr at [phone]. Reviewed same information and choices as did with the patient. First choice [facility], then [facility], and then [facility]. Visitation is important for the family, so this could also be a deciding factor if more than one facility can take patient. Called [facility] - no beds available for patients with COVID. Called [facility] - left message for Fiordaliza to call this feature writer back on bed status. Called [facility] - spoke with Yeison in admissions. There are beds to consider referral. Referral faxed to confirmed fax number of [phone]. Initiated [facility] screen in the [facility] system. Plan: In process of seeking out SNF admission. Will need to attain insurance precert once an accepting facility is found. Social work following. -NEYDA George, EIGHT ARM OPERATOR
[2020-11-01] MEDS: Atenolol 25 MG Tablet PO (20:16)
[2020-11-01] MEDS: Gabapentin 300 MG Capsule PO (20:17)
[2020-11-01] MEDS: Sertraline 50 MG Tablet PO (20:17)
[2020-11-02 02:00] VITALS: BP 124/41; PULSE 69; RESP 16; TEMP 37; O2SAT 93
[2020-11-02] MEDS: Acetaminophen 500 MG Tablet 1000 MG PO ×3 (05:10→20:44)
[2020-11-02 05:23] LABS: Absolute Lymphocyte Count 2.33 X10^3/uL (0.83-4.51); Absolute Neutrophil Count 3.2 X10^3/uL (2.0-7.7); Basophil# 0.02 X10^3/uL; Basophil% 0.3 % (0-1); Eosinophil# 0.29 X10^3/uL; Eosinophils% 4.7 % (0-5); Hemoglobin 12.5 g/dL (12.0-15.0); Lymphocyte # 2.33 X10^3/ul (0.83-4.51); Lymphocyte % 37.4 % (19-41); Mean Corp Hgb Conc 30.5 g/dL (32-36); Mean Corpuscular Hgb 28.9 pg (27.0-32.0); Mean Corpuscular Volume 94.7 fL (81-99); Mean Platelet Vol. 9.8 fl (6.2-12.0); Monocyte# 0.35 X10^3/uL; Monocyte% 5.6 % (0-10); NRBC Flagged by Analyzer 0 % (0-5); Neutrophil # 3.22 X10^3/uL (2.7-7.7); Neutrophil % 51.7 % (47-70); Platelet Count 186 K/mm3 (150-450); RBC Distribution Width CV 14.1 % (11.6-14.6); RBC Distribution Width SD 49.3 fl (35.1-43.9); Red Blood Count 4.33 M/mm3 (4.2-5.4); White Blood Count 6.2 K/mm3 (4.4-11.0)
[2020-11-02 05:36] LABS: Anion Gap 3 (5-15); BUN 19 mg/dL (7-18); BUN/Creat Ratio 24.5 RATIO (10-20); Calcium,Total 8.2 mg/dL (8.5-10.1); Chloride 100 mmol/L (98-107); Creatinine, Serum 0.78 mg/dL (0.55-1.02); EST Glomerular Filtration Rate 76 mL/min (>60); Est Glom Filt Rate - Afr Amer 92 mL/min (>60); Estimated Creatinine Clearance 33.29 ml/min; Glucose 89 mg/dL (74-106); Potassium 3.8 mmol/L (3.5-5.1); Sodium Level 138 mmol/L (136-145)
[2020-11-02 09:13] VITALS: BP 145/33; PULSE 56; RESP 18; TEMP 36.7; O2SAT 95
[2020-11-02] MEDS: Enoxaparin 40 MG/0.4 ML Syringe SC (09:21)
[2020-11-02] MEDS: POTASSIUM CITRATE 5 MEQ TABLET.ER 20 MEQ PO (09:22)
[2020-11-02] MEDS: Loratadine 10 MG Tablet PO (09:22)
[2020-11-02] MEDS: Furosemide 40 MG Tablet PO (09:22)
[2020-11-02] MEDS: Levothyroxine 112 MCG Tablet PO (09:22)
[2020-11-02] MEDS: Losartan Potassium 100 MG Tablet PO (09:22)
[2020-11-02] MEDS: Multivitamins,Ther W-Minerals Tablet 1 TABLET PO (09:22)
--- NOTE | 2020-11-02 09:57 | CASEMGMT ---
Social Work No call back from [facility] regarding bed availability. Called again this morning, and left Fiordaliza in admissions a message inquiring about bed availability. Received call from Yeison in admissions at [facility]. This facility can accept patient. Called patient's daughter Lilly to review work done thus far and responses from the nursing facilities. Lilly reports appreciation for efforts being made to secure aftercare for patient. Lilly reports the family will be okay with [facility], knowing patient is ready, and no response from [facility] yet. Called Yeison back at [facility] to alert that this facility is facility of choice. Yeison will start prior authorization, and is aware that patient is ready for discharge whenever the precertification can be attained. Plan: [facility] once precertification with insurance is in place. Social work to follow. -NEYDA George, RE ETCHER
[2020-11-02 10:26] VITALS: O2SAT 94
--- NOTE | 2020-11-02 10:30 | PN.HOSP_ITS ---
Documented by User: Robinson MCGOVERN 11/02/20 10:35 Subjective Subjective Patient is an 80-year-old female comfortably resting in bed, alert and oriented x3. Patient denies any change or progression of symptoms from yesterday. Denies chest pain, shortness of breath, palpitations, hemoptysis, sputum product ion, fever, chills, N/V/D. Objective Data Objective Data Vital Signs: Vital Signs Temp Pulse Resp BP Pulse Ox 98.1 F 56 L 18 145/33 H 94 11/02/20 09:13 11/02/20 09:13 11/02/20 09:13 11/02/20 09:13 11/02/20 10:26 Oxygen Flow Rate (L/min) 97 Oxygen Delivery Method Room Air Weight: 228 lb Body Mass Index (BMI) 43.0 Intake & Output: Intake and Output for Last 24 Hours 10/31/20 11/01/20 11/02/20 23:59 23:59 23:59 Intake Total 1780 / 1780 600 / 600 Output Total 650 / 650 Balance 1130 / 1130 600 / 600 Lab / Micro Data Result Diagrams: 11/02/20 05:00 11/02/20 05:00 Labs: Laboratory Results - last 24 hr 11/02/20 11/02/20 05:00 05:00 WBC 6.2 RBC 4.33 Hgb 12.5 Hct 41.0 MCV 94.7 MCH 28.9 MCHC 30.5 L RDW Std Deviation 49.3 H RDW Coeff of Mary 14.1 Plt Count 186 MPV 9.8 Immature Gran % (Auto) 0.300 Neut % (Auto) 51.7 Lymph % (Auto) 37.4 Sac % (Auto) 5.6 Eos % (Auto) 4.7 Baso % (Auto) 0.3 Absolute Neuts (auto) 3.2 Absolute Lymphs (auto) 2.33 Nucleated RBC % 0 Sodium 138 Potassium 3.8 Chloride 100 Carbon Dioxide 35.0 H Anion Gap 3 L BUN 19 H Creatinine 0.78 Estim Creat Clear Calc 33.29 Est GFR (MDRD) Af Amer 92 Est GFR (MDRD) Non-Af 76 BUN/Creatinine Ratio 24.5 H Glucose 89 Calcium 8.2 L Micro: Microbiology 10/28/20 18:15 Nasal Secretion SARS-CoV-2 Antigen (Rapid) - Final SARS-CoV-2 (COVID 19) Physical Exam Const alert, oriented x3 and no apparent distress HEENT head/scalp atraumatic and moist oral mucous membranes Head and Scalp: normocephalic Eyes PERRL and EOMs intact bilaterally Neck no lymphadenopathy, supple and no JVD Resp normal respiratory effort, no retractions and no use of accessory muscles Cardio regular rate, regular rhythm, no murmurs and no JVD GI normal to inspection, nondistended, normoactive bowel sounds and soft to palpation Extremity normal to inspection and full ROM Skin no rashes or lesions noted, no wounds and skin turgor normal Neuro CN's II-XII intact bilaterally Psych affect normal Assessment & Plan Assessment/Plan (1) Chronic back pain: (2) COVID-19: (3) Disc degeneration, lumbosacral: (4) Lumbosacral spondylolysis: (5) Depression: (6) Dyslipidemia: (7) Essential hypertension: (8) Hypothyroidism: (9) Fibromyalgia: (10) Osteoarthritis: (11) Hiatal hernia with gastroesophageal reflux: (12) Intractable back pain: (13) Inability to walk: PLAN: See subjective for patient presentation. Discharge planning: Discharge to [place] pending pre-CERT. 1) Intractable back pain. Orthopedics consulted; no further intervention indicated at this time, follow-up with Dr. Ca as an outpatient. MRI of the lumbar spine demonstrates postoperative changes at L4/L5, collapse of the dural sac around the nerves between L2 and L4, mild spinal canal stenosis which is apparently new as of most recent MRI in December 2015. Plan; oxycodone as needed, Tylenol 1000 every 8 hours. 2) COVID - 19 Rapid Covid antigen positive. Asymptomatic, vital signs stable and patient is afebrile. Currently satting at 94% on RA. Chest x-ray demonstrates elevation of the right hemidiaphragm with right middle and lower lobe atelectasis with no other abnormalities noted. CBC and BMP unremarkable. D-dimer not elevated. Procalcitonin within normal limits. Has not received a COVID-19 vaccination. Patient counseled about the risks of not being vaccinated for COVID-19 to include infection, serious illness or . Patient states that she understands, however has had poor experiences with many different medications and is concerned for an allergic reaction. Patient has allergy to dexamethasone and is not a candidate for remdesivir at this time, therefore not given either of these medications throughout admission. Plan; continue to monitor for progression of symptoms. 3) HTN Stable, continue home Lasix, losartan and beta-popeye 4) Fibromyalgia Continue gabapentin and diclofenac. 5) Depression Continue Zoloft. Patient seen by Robinson Bernal PA-C, under the supervision of Dr. Toth. Documented by User: Dr. Carline Toth MD 11/02/20 11:41 Objective Data Lab / Micro Data Result Diagrams: 11/02/20 05:00 11/02/20 05:00 Charges/Coding Addendum Addendum: Patient seen by Robinson Bernal PA-C under my supervision Patient seen and examined. She has no complaints today and feels well. Review of systems is otherwise negative. O/E: Const alert, oriented x3 and no apparent distress HEENT head/scalp atraumatic and moist oral mucous membranes Head and Scalp: normocephalic Eyes PERRL, EOMs intact bilaterally and conjunctivae normal Neck no lymphadenopathy, supple and no JVD Resp normal respiratory effort, no retractions and no use of accessory muscles Cardio regular rate, regular rhythm, no murmurs and no JVD GI normal to inspection, nondistended, normoactive bowel sounds and soft to palpation Extremity normal to inspection Skin no rashes or lesions noted and no wounds Neuro CN's II-XII intact bilaterally Psych affect normal Patient awaiting placement aPT OT on board. Fall precautions. To follow-up with orthopedic surgery on outpatient basis. Patient is still on room air and is stable with respect to Covid. She is not a candidate for remdesivir and is also an allergy to dexamethasone. Rest as per Robinson Bernal PA-C's notes which I reviewed and endorsed. Visit Charges Inpatient E&M: 24968 Subs Hosp L2
--- NOTE | 2020-11-02 12:54 | CASEMGMT ---
Addendum entered and electronically signed by Cristina Oseguera 11/02/20 15:37: Confirmed with Marisa Richardson at [facility] that clinical information has been received. Did fax additional information not included in original fax (discharge summary and imaging). [email or web address] Original Note: Social Work Met with patient today and updated to discharge planning. Patient states to still be in agreement with plan for SNF. Received message from Yeison at [place], the insurance is asking for hospital to initiate precert for SNF admission. Yeison provided this mortgage or loan underwriter with ICD codes that Yeison provided to [employer] (precert management company for [employer]). ICD code Yeison provided: U07.1, M54.5, and Z91.81. Called [employer] at . Spoke with Michle who took initial information. Case number is: [id number]. Fax number for clinical information is . Michel reports the insurance will both call and fax this mortgage or loan underwriter with determination on precert request. Faxed clinical information to confirmed fax. Plan: SNF placement, pending prec=cert. -JUNIOR George MSW
[2020-11-02] MEDS: oxyCODONE 5 MG Tablet PO ×2 (13:12→20:44)
[2020-11-02 14:52] VITALS: BP 135/62; PULSE 62; RESP 16; TEMP 36.8; O2SAT 93
[2020-11-02] MEDS: Atenolol 25 MG Tablet PO ×2 (20:44)
[2020-11-02] MEDS: Sertraline 50 MG Tablet PO (20:44)
[2020-11-02] MEDS: Gabapentin 300 MG Capsule PO (20:44)
[2020-11-02] MEDS: 0.9% Saline Lock 10 ML Syringe IV (20:45)
[2020-11-02 21:00] VITALS: BP 195/66; PULSE 83; RESP 16; TEMP 36.8; O2SAT 96
[2020-11-03] MEDS: Acetaminophen 500 MG Tablet 1000 MG PO ×3 (04:20→21:08)
[2020-11-03 04:43] LABS: Absolute Lymphocyte Count 2.49 X10^3/uL (0.83-4.51); Absolute Neutrophil Count 2.7 X10^3/uL (2.0-7.7); Basophil# 0.03 X10^3/uL; Basophil% 0.5 % (0-1); Eosinophil# 0.31 X10^3/uL; Eosinophils% 5.2 % (0-5); Hematocrit 41.2 % (37-47); Hemoglobin 12.8 g/dL (12.0-15.0); Lymphocyte # 2.49 X10^3/ul (0.83-4.51); Lymphocyte % 41.6 % (19-41); Mean Corp Hgb Conc 31.1 g/dL (32-36); Mean Corpuscular Hgb 29.1 pg (27.0-32.0); Mean Corpuscular Volume 93.6 fL (81-99); Mean Platelet Vol. 10.1 fl (6.2-12.0); Monocyte# 0.42 X10^3/uL; NRBC Flagged by Analyzer 0 % (0-5); Neutrophil # 2.71 X10^3/uL (2.7-7.7); Neutrophil % 45.2 % (47-70); Platelet Count 200 K/mm3 (150-450); RBC Distribution Width SD 48.2 fl (35.1-43.9)
[2020-11-03 04:55] LABS: Anion Gap 4 (5-15); BUN 19 mg/dL (7-18); BUN/Creat Ratio 23.1 RATIO (10-20); Calcium,Total 8.5 mg/dL (8.5-10.1); Chloride 99 mmol/L (98-107); Creatinine, Serum 0.82 mg/dL (0.55-1.02); EST Glomerular Filtration Rate 71 mL/min (>60); Est Glom Filt Rate - Afr Amer 86 mL/min (>60); Glucose 92 mg/dL (74-106); Potassium 4.1 mmol/L (3.5-5.1); Sodium Level 139 mmol/L (136-145)
[2020-11-03] MEDS: oxyCODONE 5 MG Tablet PO ×3 (08:34→21:18)
[2020-11-03] MEDS: Losartan Potassium 100 MG Tablet PO (08:35)
[2020-11-03] MEDS: Loratadine 10 MG Tablet PO (08:35)
[2020-11-03] MEDS: Furosemide 40 MG Tablet PO (08:36)
[2020-11-03] MEDS: Levothyroxine 112 MCG Tablet PO (08:36)
[2020-11-03] MEDS: Multivitamins,Ther W-Minerals Tablet 1 TABLET PO (08:36)
[2020-11-03] MEDS: Enoxaparin 40 MG/0.4 ML Syringe SC (08:36)
[2020-11-03] MEDS: POTASSIUM CITRATE 5 MEQ TABLET.ER 20 MEQ PO (08:37)
[2020-11-03 08:43] VITALS: BP 145/79; PULSE 72; RESP 17; TEMP 36.5; O2SAT 96
[2020-11-03] MEDS: Ondansetron 4 MG/2 ML Vial IV ×2 (08:48→21:19)
[2020-11-03] MEDS: 0.9% Saline Lock 10 ML Syringe IV ×2 (08:48→21:08)
--- NOTE | 2020-11-03 09:16 | CASEMGMT ---
Addendum entered and electronically signed by Cristina Oseguera 11/03/20 13:18: Updated the daughter Lilly to status of discharge plan. -oswaldo Original Note: Social Work Spoke with Yeison at [place]. Updated to patient's status. A bed is available for patient when precert can be obtained. Insurance asking for updated therapy notes. Faxed PT/OT notes to date to [facility]. Plan: SNF placement, pending insurance precertification. -NEYDA George, NAME PLATE STAMPING MACHINE OPERATOR
--- NOTE | 2020-11-03 13:09 | PN.HOSP_ITS ---
Subjective Subjective Patient seen and examined. Still complains of right hip pain and is wondering she can get a pain shot to help with her symptoms. She remains asymptomatic from Covid and is on room air. Patient is able to ambulate with her walker. Objective Data Objective Data Vital Signs: Vital Signs Temp Pulse Resp BP Pulse Ox 97.7 F L 72 17 145/79 H 96 11/03/20 08:43 11/03/20 08:43 11/03/20 08:43 11/03/20 08:43 11/03/20 08:43 Oxygen Flow Rate (L/min) 97 Oxygen Delivery Method Room Air Weight: 228 lb Body Mass Index (BMI) 43.0 Intake & Output: Intake and Output for Last 24 Hours 11/01/20 11/02/20 11/03/20 23:59 23:59 23:59 Intake Total 600 / 600 100 / 100 Balance 600 / 600 100 / 100 Lab / Micro Data Result Diagrams: 11/03/20 04:25 11/03/20 04:25 Labs: Laboratory Results - last 24 hr 11/03/20 11/03/20 04:25 04:25 WBC 6.0 RBC 4.40 Hgb 12.8 Hct 41.2 MCV 93.6 MCH 29.1 MCHC 31.1 L RDW Std Deviation 48.2 H RDW Coeff of Mary 14.0 Plt Count 200 MPV 10.1 Immature Gran % (Auto) 0.500 Neut % (Auto) 45.2 L Lymph % (Auto) 41.6 H Dauphin % (Auto) 7.0 Eos % (Auto) 5.2 H Baso % (Auto) 0.5 Absolute Neuts (auto) 2.7 Absolute Lymphs (auto) 2.49 Nucleated RBC % 0 Sodium 139 Potassium 4.1 Chloride 99 Carbon Dioxide 36.0 H Anion Gap 4 L BUN 19 H Creatinine 0.82 Estim Creat Clear Calc 40.60 Est GFR (MDRD) Af Amer 86 Est GFR (MDRD) Non-Af 71 BUN/Creatinine Ratio 23.1 H Glucose 92 Calcium 8.5 Micro: Microbiology 10/28/20 18:15 Nasal Secretion SARS-CoV-2 Antigen (Rapid) - Final SARS-CoV-2 (COVID 19) Physical Exam Const alert, oriented x3 and no apparent distress Exam Limitations: no limitations and altered mental status HEENT Head and Scalp: normocephalic Eyes PERRL, EOMs intact bilaterally and conjunctivae normal Neck no lymphadenopathy Resp normal respiratory effort, no retractions, no use of accessory muscles and clear to auscultation bilaterally Cardio regular rhythm, S1 normal heart sound, S2 normal heart sound and no murmurs GI normal to inspection, nondistended, normoactive bowel sounds, soft to palpation, non-tender and non-distended Extremity normal to inspection Peripheral Pulses: Yes pulses 2+ throughout Neuro oriented x3 Sensorium / Orientation: awake and alert Psych affect normal Assessment & Plan Assessment/Plan (1) COVID-19: PLAN: #Intractable back pain * still complaining of hip pain. * per ortho,conservative management for now. * MRI of the lumbar spine showed mild spinal stenosis with collapse of the dural sac around L2-4 * on oxycodone and tylenol * #COVID 19 * asymptomatic * PCR test done today was negative * D dimer also not elevated * on room air. Not a candiate for remdesivir, and she also said she had allergies to dexamethasone * #Hypertension: on atenolol, losartan and lasix #Fibromyalgia: On gabapentin and diclofenac next #Depression: On Zoloft DVT prophylaxis: Lovenox Disposition: Awaiting placement. Charges/Coding Visit Charges Inpatient E&M: 45781 Subs Hosp L2
--- NOTE | 2020-11-03 13:37 | CASEMGMT ---
Social Work Faxed PT and OT notes from 11.03.[address] [facility]. Awaiting response on SNF approval. Plan: SNF pending insurance approval. -NEYDA George, PRODUCTION INSPECTOR
[2020-11-03 14:30] VITALS: BP 159/71; PULSE 64; RESP 17; TEMP 36.9; O2SAT 92
[2020-11-03] MEDS: Sertraline 50 MG Tablet PO (21:09)
[2020-11-03] MEDS: Gabapentin 300 MG Capsule PO (21:09)
[2020-11-03 21:30] VITALS: BP 161/59; PULSE 55; RESP 16; TEMP 36.7; O2SAT 94
[2020-11-03 22:16] VITALS: BP 162/54; PULSE 52
[2020-11-04] VITALS: BP 114/41; PULSE 52
[2020-11-04 03:30] VITALS: BP 131/41; PULSE 51; RESP 16; TEMP 36.9; O2SAT 98
[2020-11-04] MEDS: Acetaminophen 500 MG Tablet 1000 MG PO ×2 (05:43→13:12)
[2020-11-04] MEDS: oxyCODONE 5 MG Tablet PO ×2 (05:44→13:15)
[2020-11-04 07:40] VITALS: O2SAT 93
[2020-11-04] MEDS: Loratadine 10 MG Tablet PO (08:26)
[2020-11-04] MEDS: Multivitamins,Ther W-Minerals Tablet 1 TABLET PO (08:27)
[2020-11-04] MEDS: Losartan Potassium 100 MG Tablet PO (08:27)
[2020-11-04] MEDS: Enoxaparin 40 MG/0.4 ML Syringe SC (08:28)
[2020-11-04] MEDS: Levothyroxine 112 MCG Tablet PO (08:28)
[2020-11-04] MEDS: Furosemide 40 MG Tablet PO (08:28)
[2020-11-04] MEDS: POTASSIUM CITRATE 5 MEQ TABLET.ER 20 MEQ PO (08:28)
--- NOTE | 2020-11-04 08:39 | CASEMGMT ---
Patient was approved to go to [place]. SW notified physician. SW will notify staff during ICU rounds. Plan: d/c to [facility] under skilled level of care. Emili VOGEL
[2020-11-04 09:30] VITALS: BP 144/55; PULSE 54; RESP 14; TEMP 36.3; O2SAT 96
--- NOTE | 2020-11-04 10:29 | PCM.DC.SUM ---
Providers Date of Admission: 10/28/20 Primary Care Physician: Dr. Alfred Mckay DO Consultations 10/30/20 11:56 Consult: Orthopedics Routine Consulting Provider: Loki Lange Reason for Consult: Steroid injection. EMERGENT Consult: No MD Notified: Yes Date Notified: 10/31/20 Time Notified: 11:56 Method of Notification: Verbal Method of Consult:: In-Person Reason For Visit: INTRACTABLE BACK PAIN Diagnosis Discharge Diagnosis (1) COVID-19: Status: Acute Code(s): U07.1 - COVID-19 Medications at Discharge Home Medications Glucosamine-Chondroitin Complx 1 ea PO DAILY 06/02/13 cholecalciferol (vitamin D3) [Vitamin D3] 4,000 unit PO DAILY 06/02/13 furosemide 40 mg PO DAILY 06/02/13 losartan [Cozaar] 100 mg PO DAILY 06/02/13 multivitamin with folic acid [Thera] 1 tab PO DAILY 06/02/13 potassium citrate [Urocit-K 10] 20 meq PO DAILY 06/02/13 atenolol 25 mg PO QHS 07/30/20 diclofenac sodium 50 mg PO BID 07/30/20 calcium citrate 1,000 mg PO DAILY 10/28/20 cetirizine [Zyrtec] 10 mg PO DAILY 10/28/20 cinnamon bark [Cinnamon] 1,000 mg PO DAILY 10/28/20 gabapentin 300 mg PO QHS 10/28/20 levothyroxine 112 mcg PO DAILY 10/28/20 sertraline 50 mg PO QHS 10/28/20 oxycodone 5 mg PO Q8H PRN 7 Days #21 cap 10/31/20 Hospital Course Operations None Procedures None Summary of Care Provided Minutes Spent on Discharge: 35 Hospital Course: Patient is an 80-year-old female with a past medical history as outlined was admitted through the ED on 10/28/2020 with a complaint of worsening intractable back and leg pain. Patient has a 10-year history of back pain and follows with orthopedics and pain management. She had received a steroid injection 3 weeks ago which was routine for her. However she got no relief from the injection and pain gradually worsened so she came in to [facility] ED. she had no other symptoms. Review of systems otherwise negative. She was admitted to be managed for intractable back pain. Upon admission, patient complained of a sore throat and cough, and covid test done was positive. She had an allergy to dexamethasone, so couldnt receive that and was also not a candidate for remdesivir. Orthopedics was consulted,a nd recommended conservative management. She had a lumbar spine MRI done which showed collapse of the dural sac around the nerves between L2-4 and mild spinal canal stenosis. Patient was to follow-up with Dr. Mcintyre and Dr. Arriola. Patient was skilled for skilled nursing placement. She remained completely asymptomatic from Covid throughout her admission. She was discharged to a assisted facility on 11/04/2020. Patient is to stay in self-isolation until 11/21/2020 which will complete 20 days of isolation since diagnosis. She is to follow-up with orthopedic surgery and pain management. Patient seen and examined prior to discharge. She had no complaints. Pain was well controlled. Review of systems was otherwise negative. Labs and vitals reviewed. Home meds reviewed and reconciled. Physical Exam Const alert, oriented x3 and no apparent distress General Appearance: cooperative, comfortable, well kempt and well developed Exam Limitations: no limitations and altered mental status HEENT normocephalic, head/scalp atraumatic, hearing grossly normal bilaterally and moist oral mucous membranes Eyes PERRL, EOMs intact bilaterally and conjunctivae normal Neck no lymphadenopathy Resp normal respiratory effort, no retractions, no use of accessory muscles and clear to auscultation bilaterally Cardio regular rhythm, S1 normal heart sound, S2 normal heart sound and no murmurs GI normal to inspection, nondistended, normoactive bowel sounds, soft to palpation, non-tender and non-distended Extremity normal to inspection and full ROM Skin no rashes or lesions noted Neuro oriented x3 and moves all extremities Neuro Narrative: Sensation grossly intact in lower extremities. No clonus. Sensorium / Orientation: awake and alert Speech: speech normal Psych affect normal Weight / BMI Weight Weight: 228 lb Body Mass Index (BMI) 43.0 ABG / Lab / Microbiology Data Result Diagrams: 11/03/20 04:25 11/03/20 04:25 Laboratory: Laboratory Results - last 24 hr 11/03/20 10:15 COVID-19 (FARAZ) Detected Microbiology: Microbiology 10/28/20 18:15 Nasal Secretion SARS-CoV-2 Antigen (Rapid) - Final SARS-CoV-2 (COVID 19) D/C Instructions Discharge Diet: No restrictions Meaningful Use Info Meaningful Use Diagnoses (Choose all that apply): None applicable Discharge Plan Admission Admit Date/Time: 10/28/20 16:43 Primary Reason for Your Visit: Fall/Debility Attending Provider: Carline Toth Primary Care Provider: Alfred Mckay Consulting Providers: Loki Lange Instructions Patient Instructions: Back Safety: Getting Into and Out of Bed Additional Instructions / Restrictions: Patient must remain quarantined for 20 days (until November 21, 2020) due to asymptomatic COVID-19 infection. Discharge Orders/Prescriptions Prescriptions: New oxycodone 5 mg capsule 5 mg PO Q8H PRN (Reason: pain) 7 Days Qty: 21 RF: 0 Continued furosemide 40 MG tablet 40 mg PO DAILY RF: 0 potassium citrate [Urocit-K 10] 10 MEQ tablet extended release 20 meq PO DAILY RF: 0 losartan [Cozaar] 100 MG tablet 100 mg PO DAILY RF: 0 cholecalciferol (vitamin D3) [Vitamin D3] 2,000 UNIT tablet 4,000 unit PO DAILY RF: 0 multivitamin with folic acid [Thera] 1 TABLET tablet 1 tab PO DAILY RF: 0 Glucosamine-Chondroitin Complx 1 EACH tablet 1 ea PO DAILY RF: 0 atenolol 25 MG tablet 25 mg PO QHS RF: 0 diclofenac sodium 50 MG tablet 50 mg PO BID RF: 0 cetirizine [Zyrtec] 10 mg Tablet 10 mg PO DAILY RF: 0 gabapentin 300 mg capsule 300 mg PO QHS RF: 0 sertraline 50 mg tablet 50 mg PO QHS RF: 0 levothyroxine 112 mcg tablet 112 mcg PO DAILY RF: 0 calcium citrate 1,000 mg Tablet 1,000 mg PO DAILY RF: 0 cinnamon bark [Cinnamon] 500 mg Capsule 1,000 mg PO DAILY RF: 0 Referrals / Follow Up: Ramon Kulkarni MD [STAFF PHYSICIAN] - Within 1 Month (Follow up either telephonically or you may go for an inpatient visit after November 21, 2020. ) Alfred Mckay DO [Primary Care Provider] - Within 1 Month (Follow up either telephonically or you may go for an inpatient visit after November 21, 2020. ) Florentino Ca MD [STAFF PHYSICIAN] - Within 1 Month (Follow up either telephonically or you may go for an inpatient visit after November 21, 2020. ) Disposition Disposition (needs filled in before D/C Order can be placed): Home Health Service Charges/Coding Visit Charges Inpatient E&M: 54403 Disch Hosp
--- NOTE | 2020-11-04 12:24 | PCM.TXEXTCAR ---
Diet 10/28/20 16:45 Diet: Regular - General Food consistency:: Regular Liquid Consistency:: Regular/Thin Problem/Diagnosis (1) COVID-19: Status: Acute Allergies/Procedures Done in Hospital Allergies codeine phosphate [From Tylenol-Codeine #3] Allergy (Severe, Verified 10/28/20 14:26) Rash diazepam [From Valium] Allergy (Severe, Verified 10/28/20 14:26) Rash prochlorperazine edisylate [From Compazine] Allergy (Severe, Verified 10/28/20 14:26) Other MUSCLE SPASMS prochlorperazine maleate [From Compazine] Allergy (Severe, Verified 10/28/20 14:26) Other MUSCLE SPASMS amoxicillin trihydrate [From Augmentin] Allergy (Verified 10/28/20 14:26) Rash ampicillin Allergy (Verified 10/28/20 14:26) Rash cephalexin monohydrate [From Keflex] Allergy (Verified 10/28/20 14:26) Rash chlorpheniramine maleate [From Chlor-Trimeton] Allergy (Verified 10/28/20 14:26) Rash dexamethasone [From Decadron] Allergy (Verified 10/28/20 14:26) Other HYPERACTIVITY dexamethasone sod phosphate [From Decadron] Allergy (Verified 10/28/20 14:26) Other HYPERACTIVITY levofloxacin [From Levaquin] Allergy (Verified 10/28/20 14:26) Rash lorazepam [From Ativan] Allergy (Verified 10/28/20 14:26) Rash Penicillins Allergy (Verified 10/28/20 14:26) Rash potassium clavulanate [From Augmentin] Allergy (Verified 10/28/20 14:26) Rash Type of Care/Length of Stay Estimated LOS: Convalescent Care Less Than 30 days Type of Care Needed: Skilled Rehab Potential: Good Prognosis: Good Additional Orders/Day of Discharge Day of Discharge: 11/04/20 Discharge Plan Admission Admit Date/Time: 10/28/20 16:43 Primary Reason for Your Visit: Fall/Debility Attending Provider: Carline Toth Primary Care Provider: Alfred Mckay Consulting Providers: Loki Lange Instructions Patient Instructions: Back Safety: Getting Into and Out of Bed Additional Instructions / Restrictions: Patient must remain quarantined for 20 days (until November 21, 2020) due to asymptomatic COVID-19 infection. Discharge Orders/Prescriptions Prescriptions: New oxycodone 5 mg capsule 5 mg PO Q8H PRN (Reason: pain) 7 Days Qty: 21 RF: 0 Continued furosemide 40 MG tablet 40 mg PO DAILY RF: 0 potassium citrate [Urocit-K 10] 10 MEQ tablet extended release 20 meq PO DAILY RF: 0 losartan [Cozaar] 100 MG tablet 100 mg PO DAILY RF: 0 cholecalciferol (vitamin D3) [Vitamin D3] 2,000 UNIT tablet 4,000 unit PO DAILY RF: 0 multivitamin with folic acid [Thera] 1 TABLET tablet 1 tab PO DAILY RF: 0 Glucosamine-Chondroitin Complx 1 EACH tablet 1 ea PO DAILY RF: 0 atenolol 25 MG tablet 25 mg PO QHS RF: 0 diclofenac sodium 50 MG tablet 50 mg PO BID RF: 0 cetirizine [Zyrtec] 10 mg Tablet 10 mg PO DAILY RF: 0 gabapentin 300 mg capsule 300 mg PO QHS RF: 0 sertraline 50 mg tablet 50 mg PO QHS RF: 0 levothyroxine 112 mcg tablet 112 mcg PO DAILY RF: 0 calcium citrate 1,000 mg Tablet 1,000 mg PO DAILY RF: 0 cinnamon bark [Cinnamon] 500 mg Capsule 1,000 mg PO DAILY RF: 0 Referrals / Follow Up: Ramon Kulkarni MD [STAFF PHYSICIAN] - Within 1 Month (Follow up either telephonically or you may go for an inpatient visit after November 21, 2020. ) Alfred Mckay DO [Primary Care Provider] - Within 1 Month (Follow up either telephonically or you may go for an inpatient visit after November 21, 2020. ) Florentino Ca MD [STAFF PHYSICIAN] - Within 1 Month (Follow up either telephonically or you may go for an inpatient visit after November 21, 2020. ) Disposition Disposition (needs filled in before D/C Order can be placed): Home Health Service
[2020-11-04] MEDS: Ondansetron 4 MG/2 ML Vial IV (13:12)
--- NOTE | 2020-11-04 13:19 | CASEMGMT ---
Orders completed and faxed to [facility]. PASRR completed on [facility] as patient is observation status. SW arranged for patient to get picked up at 1430 via cot. SW notified RN, patient's daughter, secretary of state, and left 2 messages for Yeison at [facility]. JESUS also notified hand paint mixer that answered phone at [facility]. RN notified patient. All in agreement with plan. Plan: d/c to [facility] SNF under skilled level of care on a PASRR as she is observation status in the hospital. Patient was transported by [facility] via cot. Emili Koehler NEWCOMER HOSTESS LELA
== END 2020-11-04 14:45 | disposition home health service (06) ==
LOC: ED 16:42 → MS3 17:22 → ICU 10-29 07:05
PROVIDERS: Hospitalist; Physician Assistant; Emergency Provider Emergency Medicine; PCP Preventive Medicine Occupational Medicine; Visit Provider Student in an Organized Health Care Education/Training Program
DX: U07.1 COVID-19 (principal); M51.37 Other intervertebral disc degeneration, lumbosacral region; F32.9 Major depressive disorder, single episode, unspecified; M47.816 Spondylosis without myelopathy or radiculopathy, lumbar region; M48.061 Spinal stenosis, lumbar region without neurogenic claudication; G89.29 Other chronic pain; I10 Essential (primary) hypertension; E78.5 Hyperlipidemia, unspecified; E03.9 Hypothyroidism, unspecified; K21.9 Gastro-esophageal reflux disease without esophagitis; M79.7 Fibromyalgia; M19.90 Unspecified osteoarthritis, unspecified site; R32 Unspecified urinary incontinence; Z79.899 Other long term (current) drug therapy
CPT/HCPCS: 71045; 72158; 80048; 80076; 81001; 84145; 85025; 85379; 87426; 87635; 96372; 96374; 96376; 97162; 97166; 97530; 97535; 99218; 99285; A9575; J7030; U0005; A4216; G0378; J2405; U0003

== ENCOUNTER 2020-12-20 06:34 | Day surgery (SDC) | payer MEDICARE, SELFPAY ==
[2020-10-28 18:10] VITALS: BMI 43.0
[2020-12-20] VITALS (7 sets, daily range): BP systolic 133–151; BP diastolic 64–73; PULSE 50–55; RESP 16; TEMP 36–36.1; O2SAT 96–97; BMI 40.5
[2020-12-20] MEDS: Lactated Ringers 1,000 ML 100 ML IV (07:12)
[2020-12-20] MEDS: MethylPREDNISolone Acetate 80 MG/ML Vial (07:55)
[2020-12-20] MEDS: Lidocaine 1% (5 ml sdv) 5 ML Vial (07:56)
[2020-12-20] MEDS: Bupivacaine 0.25% 30 ML Vial (07:56)
--- NOTE | 2020-12-20 08:00 | RAD_ITS ---
PROCEDURE: Transforaminal epidural steroid injection L3-L5 right DATE OF EXAMINATION: 12/20/2020 INDICATION: Female, 80 years old. PHYSICIAN: Dr. Joe Kulkarni FLUOROSCOPY TIME (if supplied): 0.26) minutes/ 6 images were obtained RADIATION DOSAGE (If Supplied By Facility): CONSENT: The risks, benefits and alternatives to the procedure were explained to the patient, and the patient agreed to the procedure and signed the consent. SEDATION: Under the direction of Dr. HOFF STERILE BARRIER TECHNIQUE: The following sterile barrier precautions were used during the procedure: hand hygiene; use of 2% chlorhexidine aseptic; use of a cap, mask, sterile gown, sterile gloves, sterile full body drape, and a large sterile sheet. PROCEDURE/TECHNIQUE: (All elements of maximal sterile barrier technique followed, including US elements as applicable) The risks, benefits, and alternatives to the procedure were explained to patient, and the patient agreed to the procedure and signed a consent form for the procedure. A timeout was performed to confirm the patient''s identity, the type of procedure, to be performed and the site of entry. RAD/Lumbar Spine 2 or 3 Views IMPRESSION: A transforaminal epidural steroid injection was performed on the right from L3 - L5. Electronically Signed: Robinson Aponte DO at 12:47 EDT Tel , Service support ,
--- NOTE | 2020-12-20 13:28 | PCM.OPRPT ---
Report of Operation Date of Procedure: 12/20/20 Description of Surgical Findings:: PREOPERATIVE DIAGNOSES: 1. Lumbosacral radiculopathy. 2. Lumbosacral degenerative disk disease. 3. Lumbosacral spinal stenosis. POSTOPERATIVE DIAGNOSES: 1. Lumbosacral radiculopathy. 2. Lumbosacral degenerative disk disease. 3. Lumbosacral spinal stenosis. PROCEDURE PERFORMED: Right-sided lumbar transforaminal epidural steroid injection, L3-4 and L4-5. ANESTHESIA: MAC. BLOOD LOSS: Minimal. COMPLICATIONS: None. DESCRIPTION OF PROCEDURE: History and physical of today was reviewed. Risks and benefits of the procedure were explained. The patient understood and agreed to proceed. Informed consent was obtained. IV inserted per routine protocol. The patient was taken to the operating room and placed in the prone position with a pillow positioned underneath the abdomen. The right side of his lower back was prepped and draped in a sterile fashion using iodine x3. Under fluoroscopy guidance on oblique view, the L3 through L5 vertebral bodies were visualized. The skin and subcutaneous tissue was anesthetized with approximately 5 mL of 1% lidocaine using a 25-gauge regular needle. Under direct visualization with fluoroscopy at approximately 35-degree angle, starting on the right L3, ending on the right L5, using a 22-gauge 5-inch spinal needle, the needle was advanced via the skin. The tip of the needle was maneuvered and directed towards the inferior and medial gutter of the transverse process at the superiormost aspect of the neural foramen. Once the tip of the needle was at the vicinity of the foramen, after negative aspiration for blood or CSF, a total of 1 mL of contrast was injected in divided doses between both levels to confirm correct placement of the needle as well as medial spread. The confirmation was obtained on AP as well as lateral view. After repeated negative aspiration and confirmation on AP as well as lateral view, a total of 6 mL of preservative-free 0.25% Marcaine with 80 mg of Depo-Medrol was injected in divided doses between both levels. The needles were then removed intact. The patient experienced no sign or symptoms of intrathecal or intravascular injection. The patient experienced no paresthesia. The procedure was completed without any apparent difficulty or any complications. The patient appeared to tolerate it well. ASSESSMENT AND PLAN: This is a 80-year-old female with lumbosacral radiculopathy, lumbosacral degenerative disk disease, and lumbosacral spinal stenosis, status post right-sided lumbar transforaminal epidural steroid injection at L3-4 and L4-5. The patient will continue his current medications. The patient will follow up in approximately 2 weeks for reevaluation..
== END 2020-12-20 09:15 | disposition home or self-care (01) ==
LOC: SDC 06:36 → AC 06:36
PROVIDERS: PCP Preventive Medicine Occupational Medicine; Referring Provider Anesthesiology Pain Medicine; Visit Provider Anesthesiology Pain Medicine
PROC: 3E0S3BZ Introduction of Anesthetic Agent into Epidural Space, Percutaneous Approach (ICD-10-PCS; CPT 64484; principal; 2020-12-20 07:55)
DX: M51.17 Intervertebral disc disorders with radiculopathy, lumbosacral region (principal); M48.07 Spinal stenosis, lumbosacral region; M43.17 Spondylolisthesis, lumbosacral region; M47.27 Other spondylosis with radiculopathy, lumbosacral region; M96.1 Postlaminectomy syndrome, not elsewhere classified; M79.7 Fibromyalgia; I10 Essential (primary) hypertension; E03.9 Hypothyroidism, unspecified; K21.9 Gastro-esophageal reflux disease without esophagitis; M16.11 Unilateral primary osteoarthritis, right hip; E66.9 Obesity, unspecified; Z68.41 Body mass index [BMI] 40.0-44.9, adult; Z79.899 Other long term (current) drug therapy
CPT/HCPCS: 64484; 64483; 72100; J7120

== ENCOUNTER → 2021-01-04 12:53 | Outpatient (CLI) | payer MEDICARE, SELFPAY ==
[2020-12-20 07:07] VITALS: BMI 40.5
--- NOTE | 2021-01-04 13:00 | RAD_ITS ---
STUDY: X-RAY - PELVIS AND RIGHT HIP REASON FOR EXAM: Female, 80 years old. Right hip pain. TECHNIQUE: 3 views of the pelvis and hip. COMPARISON: None. FINDINGS: There is a non-specific bowel gas pattern. Injection granulomas in both gluteal regions. Phleboliths. Osteopenia. Posterior fusion at L4-5. Moderate arthrosis of both sacroiliac joints, left greater than right. Normal bilateral iliac wings, sacroiliac joints and visualized sacrum. Moderate arthrosis of the symphysis pubis. Normal bilateral ischial tuberosities. Moderate medial arthrosis of both hips without significant osteophyte formation. RAD/HIP, UNI W/ Pelvis 2-3 Views IMPRESSION: Osteopenia with osteoarthritic changes of the sacroiliac joints, symphysis pubis and medial aspects of both hips. No acute abnormality, erosive changes or periostitis. Electronically Signed: Marco Antonio Sosa MD at 9:28 EDT , Service support ,
== END ==
PROVIDERS: PCP Preventive Medicine Occupational Medicine; Referring Provider Anesthesiology Pain Medicine; Visit Provider Anesthesiology Pain Medicine
DX: M16.11 Unilateral primary osteoarthritis, right hip (principal)
CPT/HCPCS: 73502

== ENCOUNTER 2021-02-07 10:37 | Day surgery (SDC) | payer MEDICARE, SELFPAY ==
[2021-02-07] VITALS (12 sets, daily range): BP systolic 136–195; BP diastolic 57–96; PULSE 55–66; RESP 16–18; TEMP 36.2–36.4; O2SAT 96–98; BMI 40.8
[2021-02-07] MEDS: Lactated Ringers 1,000 ML 100 ML IV (11:18)
--- NOTE | 2021-02-07 12:00 | RAD_ITS ---
STUDY: X-RAY - PELVIS AND RIGHT HIP REASON FOR EXAM: Female, 80 years old. RT HIP INJECTION TECHNIQUE: 2 views of the pelvis and hip. COMPARISON: None. FINDINGS: Intraoperative imaging provided for right hip injection. RAD/Fluoro Guided Needle Placement IMPRESSION: Intraoperative imaging provided for right hip injection. Electronically Signed: Catrachito Boyd MD at 15:26 EDT , Service support ,
[2021-02-07] MEDS: MethylPREDNISolone Acetate 80 MG/ML Vial (12:15)
[2021-02-07] MEDS: Lidocaine 1% (5 ml sdv) 5 ML Vial (12:15)
[2021-02-07] MEDS: Bupivacaine 0.25% 30 ML Vial (12:15)
--- NOTE | 2021-02-07 15:29 | PCM.OPRPT ---
Report of Operation Date of Procedure: 02/07/21 Description of Surgical Findings:: PREOPERATIVE DIAGNOSIS: Osteoarthritis of the right hip POSTOPERATIVE DIAGNOSIS: Osteoarthritis of the right hip PROCEDURE PERFORMED: Right hip intraarticular steroid injection under fluoroscopy guidance. ANESTHESIA: MAC. BLOOD LOSS: Minimal. COMPLICATIONS: None. DESCRIPTION OF PROCEDURE: History and physical of today was reviewed. Risks and benefits of the procedure were explained. The patient understood and agreed to proceed. Informed consent was obtained. IV inserted per routine protocol. The patient was taken to the operating room and placed in the supine position. The right hip area was prepped and draped in a sterile fashion using iodine x3. Under fluoroscopy guidance on AP view, the right hip joint was visualized. The skin and subcutaneous tissue was anesthetized with approximately 3 mL of 1% lidocaine using a 25-gauge regular needle approximately 3 cm cephalad to the right greater trochanter. Under direct visualization with fluoroscopy on an AP view, using a 22-gauge 5-inch spinal needle, the needle was advanced via the skin using the lateral approach. The tip of the needle was maneuvered and directed towards the superiormost aspect of the hip joint. Once the tip of the needle was at the vicinity of the joint, after negative aspiration for blood and positive aspiration of synovial fluid, a total of 1 mL of contrast was injected to confirm correct placement of the needle as well as halo spread around the hip joint. After repeated negative aspiration for blood and confirmation on AP as well as oblique view, a total of 10 mL of preservative-free 0.25% Marcaine with 80 mg of Depo-Medrol was injected easily. The needle was then removed intact. The patient experienced no sign or symptoms of intrathecal or intravascular injection. The patient experienced no paresthesia. The procedure was completed without any apparent difficulty or any complications. The patient appeared to tolerate it well. ASSESSMENT AND PLAN: This is an 80-year-old female with osteoarthritis of the right hip status post right hip intra-articular steroid injection under fluoroscopic guidance, patient will continue her current medications, patient will follow in approximately 2 weeks for reevaluation.
== END 2021-02-07 14:20 | disposition home or self-care (01) ==
LOC: SDC 10:41 → AC 10:52
PROVIDERS: PCP Preventive Medicine Occupational Medicine; Referring Provider Anesthesiology Pain Medicine; Visit Provider Anesthesiology Pain Medicine
PROC: 3E0U3GC Introduction of Other Therapeutic Substance into Joints, Percutaneous Approach (ICD-10-PCS; CPT 20610; principal; 2021-02-07 12:15)
DX: M16.11 Unilateral primary osteoarthritis, right hip (principal); M51.37 Other intervertebral disc degeneration, lumbosacral region; M47.27 Other spondylosis with radiculopathy, lumbosacral region; M48.07 Spinal stenosis, lumbosacral region; M96.1 Postlaminectomy syndrome, not elsewhere classified; M79.7 Fibromyalgia; I10 Essential (primary) hypertension; E03.9 Hypothyroidism, unspecified; E78.5 Hyperlipidemia, unspecified; K21.9 Gastro-esophageal reflux disease without esophagitis; E66.9 Obesity, unspecified; Z68.41 Body mass index [BMI] 40.0-44.9, adult; Z79.899 Other long term (current) drug therapy; Z79.890 Hormone replacement therapy
CPT/HCPCS: 01200; 20610; 76000; 77002; J7120

== ENCOUNTER → 2021-04-05 10:14 | Outpatient (CLI) | payer MEDICARE, SELFPAY ==
--- NOTE | 2021-04-05 10:20 | MRI_ITS ---
STUDY: MRI RIGHT HIP REASON FOR EXAM: Female, 80 years old. Unilateral primary osteoarthritis, right hip TECHNIQUE: Standardized fat and water weighted pulse sequences were obtained in all 3 orthogonal planes. COMPARISON: X-ray dated 01/04/2021. FINDINGS: No acute fracture, dislocation or cortical destruction. Mild/moderate cartilage loss at the right hip superior laterally (coronal image 15 series 4). Mild cartilage loss at the left hip. Moderate pubic symphysis arthrosis. Mild/moderate bilateral sacroiliac joint arthrosis with partial osseous fusion on the right (coronal image 10 series 4). Moderate lumbar spine degenerative features with postsurgical change. Bilateral hip labral degeneration without discrete labral tears. Capsular ligaments intact. No significant hip joint effusions. No bursitis. Moderate bilateral hamstring tendinosis (axial image 29 series 2) without discrete tearing. Moderate right gluteus medius/minimus insertional tendinosis with mild peritendinitis (axial image 22 series 2). Mild left gluteus medius/minimus tendinosis. Normal rectus femoris tendons. Normal iliopsoas tendons. Normal adductor tendons. Paraspinal muscle atrophy. Colonic diverticulosis. Hysterectomy. Remainder the visualized intra-abdominal/pelvic contents within normal limits. Normal neurovascular bundles. No solid, cystic or lipomatous soft tissue lesions. MRI/Lower Ext Joint Only (Routine) IMPRESSION: Bilateral mild/moderate hip osteoarthritis, right greater than left Bilateral mild/moderate sacroiliac joint osteoarthritis with partial right-sided fusion Moderate lumbar spine arthrosis with postsurgical change Moderate bilateral hip joint tendinosis without tears Moderate right and mild left gluteal tendinosis with right-sided mild peritendinitis Electronically Signed: Jd Cadena DO at 11:52 EST Tel , Service support ,
--- NOTE | 2021-05-19 17:07 | PCM.HP.BLA ---
History and Physical Date of Admission: 05/23/21 Chief Complaint: Follow up/mri review History of Present Illness: This is a 80 Y/O Female who was seen and evaluated at our office today as a follow up. Pain: right low back, right hip,right leg Quality: constant but varies in intensity w/activity Region: Pain in the lower back into the right hip and down the right leg.Neuropathy in bilateral feet Severity: sharp/stabbing, burning, numbness in feet, dull, pins and needles Timing: years Aggravated by: standing, walking Relieved by: lay down, injection Pain score (out of 10): 7-810 Other info: Patient is here for a follow up to review mri of right hip. Reports pain in the lower back down into buttock and the right hip and down the right leg and has neuropathy in her feet. States she feels weakness in her legs and states the right one is worse. States she has all over fibromyalgia pain. She is not sure if she needs gabapentin refill. States she does not have good control of her bladder and denies any bowel issues, she is accompanied by her daughter today, she was seen by her surgeon and he recommended for the pt to have right sided SI joint injection. Review of Systems: Patient denies any recent fever, chills, headache, change in weight without trying, vision or hearing problems. No cp, sob, neville, pnd, orthopnea, or peripheral edema.They note no lumps or swollen glands, no new rashes, changing moles, or change in bowel or bladder function. Mood has been fluctuating. Past Medical History: h/o Diverticulitis h/o HTN h/o hypothyroidism h/o acid reflux h/o Arthritis h/o fibromyalgia h/o lt shoulder injury 2005-fall h/o osteoarthritis s/p tonsillectomy 1952 s/p Lumbar fusion-2009 w/ plates, rods and screws s/p hysterectomy s/p Appendectomy s/p rt CTR 2013 s/p cataract extraction s/p Cholecystectomy s/p cyst removed on RT ovary s/p RT ovary removed s/p exploratory SX, removed varicose veins in abdomen s/p Esophagus sx s/p sinus sx s/p abdominal hernia repair 2012 Family History: ======== Structured Family History ======== Father: Heart disease Mother: Hypertension, Heart disease, Diabetes mellitus, Arthritis Grandparent: Stroke, Cancer Social History: [Tobacco: Never smoker Pipe Smoker: No Cigar Smoker: No Chewing Tobacco User: No Electronic Cigarette User: No] Living situation: 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 drugs: Denies Allergies: penicillin, ampicillin, Ativan, Keflex, dexamethasone, Compazine, Chlor-Trimeton, Augmentin, Levaquin, tylenol/codine, Oxycodone Medications: 1) atenolol 25 mg oral tablet, Take 1 tablet by mouth every evening 2) calcium citrate 950 mg (200 mg elemental calcium) oral tablet, Take 1 tablet by mouth once daily 3) cetirizine 10 mg oral capsule, One tablet daily 4) Cinnamon oral capsule, Take 1 tablet by mouth 2 times a Day 5) gabapentin 300 mg oral capsule, Take 1 tablet by mouth every evening 6) Glucosamine-Chondroitin Oral Capsule GLUTEN FREE, Take 1 tablet by mouth once daily 7) Lasix 40 mg oral tablet, One tablet daily 8) losartan 100 mg oral tablet, Take 1 tablet by mouth once daily 9) Mobic 15 mg oral tablet, 1 PO daily with food. 10) MRI of the right hip without contrast. 11) Multiple Vitamins with Minerals oral tablet, Take 1 tablet by mouth once daily 12) Remeron SolTab oral tablet, disintegrating, Take 1 tablet by mouth every evening 13) Synthroid 100 mcg (0.1 mg) oral tablet, One tablet daily 14) Urocit-K 10 mEq oral tablet, extended release, 2 tablets daily 15) Vitamin D3 2000 intl units oral capsule, One tablet daily 16) Xray of the right hip, 2-3 views 17) Zoloft 50 mg oral tablet, Take 1 tablet by mouth every evening Physical Examination: Wt: 215 lb Ht/Ln: 61 in BMI: 40.6 BP: 103/57 Pulse: 68 RR: 16 Temp: 97.5F Well nourished and well developed in no acute distress. Affect is normal and appropriate. Mucosa pink and moist. Chest is unlabored breathing, RRR, pt is alert and oriented to place, person and time, obese Neck is supple without significant lymphadenopathy or thyromegaly. Abdomen soft & non-tender. No HSM or masses appreciated. Extremities show no cyanosis, clubbing, 2+ pedal edema. Gait is Antalgic with a walker. Lumbar ROM is limited due to pain. Lumbar paraspinal muscle tenderness. Bilateral lumbar facet loading is positive. SLR is positive on the right at 35 degrees. Positive surgical scar that is well healed. ROM of the right hip is limited due to pain. Right greater trochanteric bursa tenderness on deep palpation. Positive RAGHU test. Sacroiliac Joint Tenderness on palpation worse on the right. Motor and sensory exam is unchanged. 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 (Transmitted by Lorenza Kulkarni MD) DISCONTINUE: Mobic 15 mg oral tablet 1 PO daily with food., REASON: feet swelling Continue with her current medication. OARRS was reviewed today. All of their questions were answered today. UDS was reviewed and was compliant. SOAPP score is 1 MRI of the lumbar spine was reviewed again with the pt today and they appear to understand. MRI of the pelvis was reviewed with the pt today and they appear to understand. Xray of bilateral hips was reviewed again with the pt today and they appear to understand. Life style modifications were also discussed today and the pt appears to understand. Reviewed with the pt today our opioid agreement and they appear to understand. PEG was reviewed today. Pt was advised not to consume alcohol with his medications due to possible severe interaction, pt appears to understand. The pt has been counseled on safe storage and disposal of opioids. Weight loss was recommended today through diet and exercise. There are no signs of diversion or addiction with the pt, there is also no signs of abuse or misuse, continues to do well with their medications without any side effects, we will continue monitoring the pt closely. Risks and benefits of the above meds were discussed with the pt and they appear to understand. The common side effects of the medications were discussed and all of their questions and concerns were answered and they appear to understand Discussed natural and expected course of this diagnosis and need to alert me if symptoms do not follow expected course, or if any worse. Pt is to continue with her HEP. Pt has tried multiple modalities with no success, we will schedule the pt for bilateral SI joints steroid injection under fluoro per her surgeon's request. We have discussed the risks, benefits as well as alternatives of the procedure and the patient appears to understand and would like to proceed with the above plan. The above plan was discussed today with the pt and her daughter in law in details and they appear to understand and agrees to continue with the plan.
== END ==
PROVIDERS: PCP Preventive Medicine Occupational Medicine; Referring Provider Anesthesiology Pain Medicine; Visit Provider Anesthesiology Pain Medicine
DX: M16.11 Unilateral primary osteoarthritis, right hip (principal)
CPT/HCPCS: 73721

== ENCOUNTER 2021-06-27 08:36 | Day surgery (SDC) | payer MEDICARE, SELFPAY ==
--- NOTE | 2021-06-03 15:03 | PCM.HP.BLA ---
History and Physical Date of Admission: 06/27/21 Chief Complaint: Follow up/mri review History of Present Illness: This is a 80 Y/O Female who was seen and evaluated at our office today as a follow up. Pain: right low back, right hip,right leg Quality: constant but varies in intensity w/activity Region: Pain in the lower back into the right hip and down the right leg.Neuropathy in bilateral feet Severity: sharp/stabbing, burning, numbness in feet, dull, pins and needles Timing: years Aggravated by: standing, walking Relieved by: lay down, injection Pain score (out of 10): 7-810 Other info: Patient is here for a follow up to review mri of right hip. Reports pain in the lower back down into buttock and the right hip and down the right leg and has neuropathy in her feet. States she feels weakness in her legs and states the right one is worse. States she has all over fibromyalgia pain. She is not sure if she needs gabapentin refill. States she does not have good control of her bladder and denies any bowel issues, she is accompanied by her daughter today, she was seen by her surgeon and he recommended for the pt to have right sided SI joint injection. Review of Systems: Patient denies any recent fever, chills, headache, change in weight without trying, vision or hearing problems. No cp, sob, neville, pnd, orthopnea, or peripheral edema.They note no lumps or swollen glands, no new rashes, changing moles, or change in bowel or bladder function. Mood has been fluctuating. Past Medical History: h/o Diverticulitis h/o HTN h/o hypothyroidism h/o acid reflux h/o Arthritis h/o fibromyalgia h/o lt shoulder injury 2005-fall h/o osteoarthritis s/p tonsillectomy 1952 s/p Lumbar fusion-2009 w/ plates, rods and screws s/p hysterectomy s/p Appendectomy s/p rt CTR 2013 s/p cataract extraction s/p Cholecystectomy s/p cyst removed on RT ovary s/p RT ovary removed s/p exploratory SX, removed varicose veins in abdomen s/p Esophagus sx s/p sinus sx s/p abdominal hernia repair 2012 Family History: ======== Structured Family History ======== Father: Heart disease Mother: Hypertension, Heart disease, Diabetes mellitus, Arthritis Grandparent: Stroke, Cancer Social History: [Tobacco: Never smoker Pipe Smoker: No Cigar Smoker: No Chewing Tobacco User: No Electronic Cigarette User: No] Living situation: 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 drugs: Denies Allergies: penicillin, ampicillin, Ativan, Keflex, dexamethasone, Compazine, Chlor-Trimeton, Augmentin, Levaquin, tylenol/codine, Oxycodone Medications: 1) atenolol 25 mg oral tablet, Take 1 tablet by mouth every evening 2) calcium citrate 950 mg (200 mg elemental calcium) oral tablet, Take 1 tablet by mouth once daily 3) cetirizine 10 mg oral capsule, One tablet daily 4) Cinnamon oral capsule, Take 1 tablet by mouth 2 times a Day 5) gabapentin 300 mg oral capsule, Take 1 tablet by mouth every evening 6) Glucosamine-Chondroitin Oral Capsule GLUTEN FREE, Take 1 tablet by mouth once daily 7) Lasix 40 mg oral tablet, One tablet daily 8) losartan 100 mg oral tablet, Take 1 tablet by mouth once daily 9) Mobic 15 mg oral tablet, 1 PO daily with food. 10) MRI of the right hip without contrast. 11) Multiple Vitamins with Minerals oral tablet, Take 1 tablet by mouth once daily 12) Remeron SolTab oral tablet, disintegrating, Take 1 tablet by mouth every evening 13) Synthroid 100 mcg (0.1 mg) oral tablet, One tablet daily 14) Urocit-K 10 mEq oral tablet, extended release, 2 tablets daily 15) Vitamin D3 2000 intl units oral capsule, One tablet daily 16) Xray of the right hip, 2-3 views 17) Zoloft 50 mg oral tablet, Take 1 tablet by mouth every evening Physical Examination: Wt: 215 lb Ht/Ln: 61 in BMI: 40.6 BP: 103/57 Pulse: 68 RR: 16 Temp: 97.5F Well nourished and well developed in no acute distress. Affect is normal and appropriate. Mucosa pink and moist. Chest is unlabored breathing, RRR, pt is alert and oriented to place, person and time, obese Neck is supple without significant lymphadenopathy or thyromegaly. Abdomen soft & non-tender. No HSM or masses appreciated. Extremities show no cyanosis, clubbing, 2+ pedal edema. Gait is Antalgic with a walker. Lumbar ROM is limited due to pain. Lumbar paraspinal muscle tenderness. Bilateral lumbar facet loading is positive. SLR is positive on the right at 35 degrees. Positive surgical scar that is well healed. ROM of the right hip is limited due to pain. Right greater trochanteric bursa tenderness on deep palpation. Positive RAGHU test. Sacroiliac Joint Tenderness on palpation worse on the right. Motor and sensory exam is unchanged. 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 (Transmitted by Lorenza Kulkarni MD) DISCONTINUE: Mobic 15 mg oral tablet 1 PO daily with food., REASON: feet swelling Continue with her current medication. OARRS was reviewed today. All of their questions were answered today. UDS was reviewed and was compliant. SOAPP score is 1 MRI of the lumbar spine was reviewed again with the pt today and they appear to understand. MRI of the pelvis was reviewed with the pt today and they appear to understand. Xray of bilateral hips was reviewed again with the pt today and they appear to understand. Life style modifications were also discussed today and the pt appears to understand. Reviewed with the pt today our opioid agreement and they appear to understand. PEG was reviewed today. Pt was advised not to consume alcohol with his medications due to possible severe interaction, pt appears to understand. The pt has been counseled on safe storage and disposal of opioids. Weight loss was recommended today through diet and exercise. There are no signs of diversion or addiction with the pt, there is also no signs of abuse or misuse, continues to do well with their medications without any side effects, we will continue monitoring the pt closely. Risks and benefits of the above meds were discussed with the pt and they appear to understand. The common side effects of the medications were discussed and all of their questions and concerns were answered and they appear to understand Discussed natural and expected course of this diagnosis and need to alert me if symptoms do not follow expected course, or if any worse. Pt is to continue with her HEP. Pt has tried multiple modalities with no success, we will schedule the pt for bilateral SI joints steroid injection under fluoro per her surgeon's request. We have discussed the risks, benefits as well as alternatives of the procedure and the patient appears to understand and would like to proceed with the above plan. The above plan was discussed today with the pt and her daughter in law in details and they appear to understand and agrees to continue with the plan.
[2021-06-27 09:21] VITALS: BP 168/74; PULSE 59; RESP 16; TEMP 36.8; O2SAT 98; BMI 40.8
[2021-06-27] MEDS: Lactated Ringers 1,000 ML 15 ML IV (09:42)
[2021-06-27] MEDS: Lidocaine 1% (30 ml sdv) 30 ML Vial (09:55)
[2021-06-27] MEDS: MethylPREDNISolone Acetate 40 MG/ML Vial IM (09:55)
[2021-06-27] MEDS: Bupivacaine 0.25% 30 ML Vial (09:55)
--- NOTE | 2021-06-27 09:59 | RAD_ITS ---
PROCEDURE: Bilateral SI joint injections. DATE OF EXAMINATION: 06/27/2021. INDICATION: Female, 80 years old. Sacroiliitis. FLUOROSCOPY TIME (if supplied): (19.5 seconds) minutes/seconds. 2 images were obtained. RAD/Fluoro Guided Needle Placement IMPRESSION: Intraoperative imaging provided for bilateral sacroiliac joint injection. Electronically Signed: Catrachito Boyd MD at 15:08 EST ,
[2021-06-27 10:10] VITALS: BP 117/94; BP 168/74; PULSE 56; RESP 16; TEMP 36.1; O2SAT 94
[2021-06-27 10:15] VITALS: BP 122/57; BP 168/74; PULSE 54; RESP 16; O2SAT 93
--- NOTE | 2021-06-27 10:15 | RAD_ITS ---
PROCEDURE: Bilateral SI joint injection. DATE OF EXAMINATION: 06/27/2021. INDICATION: Female, 80 years old. Chronic low back pain. Sacroiliitis. FLUOROSCOPY TIME (if supplied): (19.5 seconds) minutes/seconds. 2 images were obtained. RAD/Fluoro Guided Needle Placement IMPRESSION: Intraoperative imaging provided for bilateral sacroiliac joint injection. Electronically Signed: Catrachito Boyd MD at 15:06 EST ,
[2021-06-27 10:20] VITALS: BP 135/68; BP 168/74; PULSE 53; RESP 16; O2SAT 94
[2021-06-27 10:25] VITALS: BP 126/69; BP 168/74; PULSE 53; RESP 16; TEMP 36.2; O2SAT 96
[2021-06-27 11:12] VITALS: BP 168/74
--- NOTE | 2021-06-27 11:12 | OP.PCM_ITS ---
Report of Operation Date of Procedure: 06/27/21 Description of Surgical Findings:: PREOPERATIVE DIAGNOSES: 1. Sacroiliitis. 2. Sacroiliac joint dysfunction. POSTOPERATIVE DIAGNOSES: 1. Sacroiliitis. 2. Sacroiliac joint dysfunction. PROCEDURE PERFORMED: Bilateral sacroiliac joint steroid injection under fluoroscopy guidance. ANESTHESIA: MAC. BLOOD LOSS: Minimal. COMPLICATIONS: None. DESCRIPTION OF PROCEDURE: History and physical of today was reviewed. Risks and benefits of the procedure were explained. The patient understood and agreed to the procedure. Informed consent was obtained. IV inserted per routine protocol. The patient was taken to the operating room and placed in the prone position with a pillow positioned underneath the abdomen. The lower back and buttock area was prepped and draped in a sterile fashion using iodine x3. Under fluoroscopy guidance on an AP view, the bilateral SI joints were visualized. The skin and subcutaneous tissue was anesthetized with approximately 3 mL of 1% lidocaine using a 25-gauge regular needle. Under direct visualization with fluoroscopy at approximately 15-degree angle, using a 22-gauge 3-1/2-inch spinal needle, the needle was advanced via the skin. The tip of the needle was maneuvered and directed towards the inferior one-third of the posterior SI joint. Once the tip of the needle was at the vicinity of the joint, after negative aspiration for blood or CSF, a total of 1 mL of contrast was injected to confirm correct placement of the needle as well as cephalocaudal spread. Confirmation was obtained on AP as well as oblique view. After repeated negati ve aspiration and confirmation, a total of 8 mL of preservative-free 0.25% Marcaine with 80 mg of Depo-Medrol was injected in and around the SI joints in divided doses. The needle was then removed intact. The patient experienced no sign or symptoms of intrathecal or intravascular injection. The patient experienced no paresthesia. The procedure was completed without any apparent difficulty or any complications. The patient appeared to tolerate it well. ASSESSMENT AND PLAN: This is an 80-year-old female with sacroiliitis, sacroiliac joint dysfunction status post bilateral sacroiliac joints steroid injection under fluoroscopic guidance, patient will continue her current medications, patient will follow in approximately 2 weeks for reevaluation.
== END 2021-06-27 23:59 | disposition home or self-care (01) ==
LOC: SDC 08:41 → AC 08:45
PROVIDERS: PCP Preventive Medicine Occupational Medicine; Referring Provider Anesthesiology Pain Medicine; Visit Provider Anesthesiology Pain Medicine
PROC: 3E0U3BZ Introduction of Anesthetic Agent into Joints, Percutaneous Approach (ICD-10-PCS; CPT 64451; principal; 2021-06-27 10:10)
DX: M46.1 Sacroiliitis, not elsewhere classified (principal); M51.17 Intervertebral disc disorders with radiculopathy, lumbosacral region; M48.07 Spinal stenosis, lumbosacral region; M19.91 Primary osteoarthritis, unspecified site; M47.27 Other spondylosis with radiculopathy, lumbosacral region; M79.89 Other specified soft tissue disorders; G89.29 Other chronic pain; I10 Essential (primary) hypertension; M43.16 Spondylolisthesis, lumbar region; M79.7 Fibromyalgia; M16.11 Unilateral primary osteoarthritis, right hip; M96.1 Postlaminectomy syndrome, not elsewhere classified; E03.9 Hypothyroidism, unspecified; K21.9 Gastro-esophageal reflux disease without esophagitis; Z79.890 Hormone replacement therapy; Z79.899 Other long term (current) drug therapy
CPT/HCPCS: G0260; 76000; 77002; J7120

== ENCOUNTER 2021-09-05 09:25 | Day surgery (SDC) | payer MEDICARE, SELFPAY ==
[2021-09-05] VITALS (7 sets, daily range): BP systolic 161–172; BP diastolic 56–79; PULSE 57–63; RESP 16; TEMP 36.1–36.5; O2SAT 93–96; BMI 40.6
[2021-09-05] MEDS: Lactated Ringers 1,000 ML 15 ML IV (10:22)
--- NOTE | 2021-09-05 11:00 | RAD_ITS ---
STUDY: INTRAOPERATIVE FLUOROSCOPY TECHNIQUE: The examination was performed with referring physician in attendance. Under fluoroscopic observation, fluoroscopic images were obtained. Radiologist was not present for the study. Radiologist did not perform the procedure. This dictation is for documentation of the radiation dosage only. There is no interpretation of the images. TOTAL NUMBER OF IMAGES: 1 COMPARISON: None RADIATION DOSE: 73 mGy FLUOROSCOPY TIME: 173 seconds REASON FOR EXAM: SPINAL CORD STIMULATOR INSERTION Female, 80 years old. FINDINGS: Sequential images assure placement of a spinal cord stimulator lead RAD/Lumbar Spine 2 or 3 Views IMPRESSION: Fluoroscopic assistance images were obtained. Dictation for documentation purposes only. Electronically Signed: Kapil Murdock MD at 21:22 EDT ,
[2021-09-05] MEDS: Cefazolin 2 GM in 0.9% Normal Saline 100 ML IV (11:01)
[2021-09-05] MEDS: Bupivacaine 0.25% 30 ML Vial (11:14)
[2021-09-05] MEDS: Lidocaine 2% (20 ml mdv) 20 ML Vial (11:14)
[2021-09-05] MEDS: Bacitracin 500 UNITS/GM PACKET (11:42)
--- NOTE | 2021-09-05 13:49 | PCM.OPRPT ---
Report of Operation Date of Procedure: 09/05/21 Description of Surgical Findings:: Pre-Operative Diagnosis: Lumbosacral radiculopathy, lumbosacral degenerative disc disease, lumbosacral spinal stenosis, postlaminectomy syndrome of the lumbar spine Post-Operative Diagnosis: Lumbosacral radiculopathy, lumbosacral degenerative disc disease, lumbosacral spinal stenosis, postlaminectomy syndrome of the lumbar spine Surgery/Procedure Performed:: 1. Spinal cord stimulator thoracolumbar leads placement x2 percutanous trial 2-spinal cord stimulator complex programming, 3-intraoperative fluoroscopic interpretation for spinal cord stimulator insertion. ANESTHESIA: MAC COMPLICATIONS: None BLOOD LOSS: Minimal Implanted device: Spinal cord stimulator lead [id number] lot number [id number], lead #2 [id number] lot number [id number] PROCEDURE IN DETAIL: History and physical today was reviewed. Risks and benefits of procedure explained. The patient understood, agreed to procedure, informed consent was obtained. IV inserted per routine protocol. The patient was taken to the operating room, placed in the prone position with a pillow positioned underneath the abdomen. A 2 g of Ancef IV piggyback was infused per anesthesia. The lower back area was prepped and draped in a sterile fashion using iodine x3 Ioban was placed. The C-arm was brought in position for AP view at the L1-2 vertebral bodies under direct visualization fluoroscopy on a true AP view the L1-2 interlaminar space was identified skin and subcutaneous tissue and size approximately 10 cc of a mix of 2% lidocaine and 0.25% Marcaine using a 25-gauge regular needle followed by a 25-gauge 3-1/2 inch spinal needle towards the interlaminar space at T12-l1, the skin and subcutaneous tissue were then anesthetized and using an 11-gauge blade was then taken down to the skin and subcutaneous tissue using a 14-gauge 5 inch Touhy needle provided by the [employer] kit the needle was passed through the skin towards the interlaminar space at L1-2 and a left paramedian approach the needle was then advanced under direct visualization fluoroscopy towards the interlaminar space at L1-2 bxkt-je-ikckakwydo technique was then carried to air towards the interlaminar space at L1-2 once the tip of the needle was in the epidural space and loss of resistance was encountered to air and after confirmation of AP as well as oblique view of the spinal cord stimulator lead was then advanced under direct visualization fluoroscopy to be at the tip of the lead at T8 and the bottom of the lead around mid T10 after confirmation of AP as well as lateral view to confirm correct placement of the lead in the posterior compartment of the epidural space the previous procedure was then repeated to a level above at L1-2 interlaminar space to the right the second lead was then inserted under direct visualization with fluoroscopy to be at the mid T8 and mid T10 area the leads were were then connected to the external neurostimulator and patient was then awakened to confirm satisfactory coverage of the painful area once satisfactory coverage was then achieved the stylette of each needle was then removed and the skin and subcutaneous tissue on to the left of the paramedian needles was then taken anesthetized with a total of 10 cc of the previous mixture of 0.25% Marcaine and 2% lidocaine using a 25-gauge regular needle , using the 3-0 silk stitch to secure both leads to the skin with Steri-Strips, the skin was then covered with a Steri-Strips and bacitracin, the external stimulator was then attached to the pouch to the left of the patient's lower back area, the patient was then returned into the supine position in a stable condition and returned to recovery in a stable condition patient experienced no signs or symptoms of intrathecal or intravascular injection patient experienced no paresthesia the procedure was completed without any apparent difficulty any complication the patient appeared to tolerate well, motor as well as sensory function was unchanged from prior to the procedure ESTIMATED BLOOD LOSS: Minimal less than 10 mL ASSESSMENT AND PLAN: This is a 80-year-old female with lumbosacral radiculopathy lumbosacral, degenerative disc disease lumbosacral spinal stenosis status post 1. Spinal cord stimulator thoracolumbar leads placement x2 percutaneous trial, spinal cord stimulator programming, intraoperative fluoroscopic interpretation, patient will continue her current medications a prescription was provided to the patient doxycycline 100 mg 1 p.o. every 8 hours for 7 days postop instruction were given in writing to the patient as well as her daughter verbally, patient will follow approximately 1 week for reevaluation.
== END 2021-09-05 23:59 | disposition home or self-care (01) ==
LOC: SDC 09:31 → AC 09:47
PROVIDERS: PCP Preventive Medicine Occupational Medicine; Referring Provider Anesthesiology Pain Medicine; Visit Provider Anesthesiology Pain Medicine
PROC: (CPT 63650; principal; 2021-09-05 10:45)
DX: M96.1 Postlaminectomy syndrome, not elsewhere classified (principal); M46.1 Sacroiliitis, not elsewhere classified; M51.17 Intervertebral disc disorders with radiculopathy, lumbosacral region; M48.07 Spinal stenosis, lumbosacral region; Z20.822 Contact with and (suspected) exposure to COVID-19; M70.71 Other bursitis of hip, right hip; M43.16 Spondylolisthesis, lumbar region; M16.11 Unilateral primary osteoarthritis, right hip; M53.3 Sacrococcygeal disorders, not elsewhere classified; M79.7 Fibromyalgia; I10 Essential (primary) hypertension; E03.9 Hypothyroidism, unspecified; K21.9 Gastro-esophageal reflux disease without esophagitis; Z79.899 Other long term (current) drug therapy; Z98.1 Arthrodesis status
CPT/HCPCS: 63650; 00600; 72100; 76000; 87426; J7120; J2405; J3490

== ENCOUNTER 2021-11-07 11:47 | Day surgery (SDC) | payer MEDICARE, SELFPAY ==
[2021-11-07] VITALS (10 sets, daily range): BP systolic 148–163; BP diastolic 68–87; PULSE 61–73; RESP 15–16; TEMP 36.3–37.3; O2SAT 92–98; BMI 40.8
[2021-11-07] MEDS: Lactated Ringers 1,000 ML 15 ML IV (12:00)
[2021-11-07] MEDS: Cefazolin 2 GM in 0.9% Normal Saline 100 ML IV (12:47)
--- NOTE | 2021-11-07 13:00 | RAD_ITS ---
PROCEDURE: Spinal cord stimulator placement DATE OF EXAMINATION: 11/07/2021 INDICATION: Female, 81 years old. Spinal cord stimulator placement. FLUOROSCOPY TIME (if supplied): 3 minutes 47 seconds. fluoroscopic spot images submitted for interpretation. FINDINGS/ RAD/Lumbar Spine 2 or 3 Views IMPRESSION: Assessment limited by fluoroscopic technique and limited views submitted. Lumbar fusion hardware is partially visualized. Needle entry into the thecal sac is seen in the lumbar spine. A spinal cord stimulator device is advanced terminating in the mid thoracic spine. Please see intraoperative findings for further details. Electronically Signed: Tiburcio Palmer, at 16:09 EDT ,
[2021-11-07] MEDS: Bupivacaine Mpf 0.5% 30 ML VIAL (13:04)
[2021-11-07] MEDS: Lidocaine 2% (20 ml mdv) 20 ML Vial (13:04)
[2021-11-07] MEDS: Bacitracin 500 UNITS/GM PACKET (14:14)
--- NOTE | 2021-11-07 15:55 | PCM.OPRPT ---
Report of Operation Date of Procedure: 11/07/21 Description of Surgical Findings:: Date of Procedure:?06/08/21 Pre-Operative Diagnosis: Lumbosacral radiculopathy, lumbosacral degenerative disc disease, lumbosacral spinal stenosis, lumbar postlaminectomy syndrome Post-Operative Diagnosis: Lumbosacral radiculopathy, lumbosacral degenerative disc disease, lumbosacral spinal stenosis, postlaminectomy syndrome of the lumbar spine Surgery/Procedure Performed:: 1.? Spinal cord stimulator thoracolumbar leads placement x2 #2 spinal cord stimulator Medtronic Vanta adaptive stim no rechargable generator placement #3 spinal cord stimulator generator pocket creation at the left gluteal region #4 spinal cord stimulator complex programming, 5-intraoperative fluoroscopic interpretation ANESTHESIA: MAC COMPLICATIONS: None BLOOD LOSS: Minimal Implanted device: Spinal cord stimulator lead [id number] lot number [id number], lead #2? [id number] lot number [id number] Medtronic spinal cord stimulator generator intellus serial number [id number] PROCEDURE IN DETAIL: History and physical of today was reviewed. Risks and benefits of the procedure were explained. The patient understood, agreed to the procedure, informed consent was obtained. IV inserted per routine protocol. The patient was taken to the operating room, placed in the prone position with a pillow positioned underneath the abdomen. A 2 gm of Ancef IV piggyback was infused per anesthesia prior to incision. The lower back and left gluteal area was prepped and draped in a sterile fashion using iodine x3 Ioban was placed.? The C-arm was brought in position for AP view at the T12-L2 vertebral bodies under direct visualization fluoroscopy on a true AP view the T12-L2 interlaminar space was identified skin and subcutaneous tissue and size approximately 10 cc of a mix of 2% lidocaine and 0.25% Marcaine using a 25-gauge regular needle followed by a 25-gauge 3-1/2 inch spinal needle towards the interlaminar space at T12-L1 from the left paramedian approach, the skin and subcutaneous tissue were then anesthetized and using an 11-gauge blade was then taken down to the skin and subcutaneous tissue using a 14-gauge 3 1/2 inch Touhy needle provided by the [employer] 2 Step kit the needle was passed through the skin towards the interlaminar space at T12-L1 and a paramedian approach the needle was then advanced under direct visualization fluoroscopy towards the interlaminar space at T12-L1 fkyh-[id number]-trwkvyusnq technique was then carried to air towards the interlaminar space at T12-L1 once the tip of the needle was in the epidural space and loss of resistance was encountered to air and after confirmation of AP as well as oblique view of the spinal cord stimulator lead was then advanced under direct visualization fluoroscopy to be at the tip of the lead at tip of T8 and the bottom of the lead around mid T10 after confirmation of AP as well as lateral view to confirm correct placement of the lead in the posterior compartment of the epidural space the previous procedure was then repeated to a level? at T12-L1 interlaminar space on the right paramedian approach, the needle was then redirected after repeated confirmation with [id number]-lqdtxcpavg technique and confirmation on AP as well as lateral view , the second lead was then inserted under direct visualization with fluoroscopy to be at the tip T8 and mid T10 area to the right of the previously inserted lead, the leads were were then connected to the external neurostimulator and patient was then awakened to confirm satisfactory coverage of the painful area once satisfactory coverage was then achieved the stylette of each needle was then removed and the skin and subcutaneous tissue on to the left of the paramedian needles was then taken anesthetized with a total of 10 cc of the previous mixture of 0.25% Marcaine and 2% lidocaine using a 25-gauge regular needle the incision was then taken down through the skin and subcutaneous tissue towards the fascia making sure hemostasis was then maintained via cautery, the spinal cord stimulator leads were then passed through the above incision and secured using the injex anchor and sutured down with a 2-0 silk to the fascia at that level the spinal cord stimulator leads were then tunneled via a tunneler provided by the [employer] kit towards the previously incised spinal cord stimulator battery at the left gluteal region skin and subcutaneous tissue were anesthetized with approximately 10 cc of a mix of 2% lidocaine and 0.25% Marcaine using a 25 gauge regular needle, skin and subcutaneous tissue was then taken down with the 11-gauge blade hemostasis was maintained with Bovie and direct pressure the incision was then taken down to the fascia and the battery was then secured with the 2-0 silk sutures that were the spinal cord stimulator leads the upper lead was then marked the new until spinal cord stimulator battery was then provided Via [employer] 2 Step kit the battery was then reattached of the spinal cord stimulator make ensure that the top lead is attached to the top position from 0-7 electrodes and the bottom from 8-15 electrodes once impedance was then checked to be in the proper average number the intellus battery was then inserted into the pocket and impedance was then checked again the pocket was then inspected to confirm hemostasis in place, the intellus battery was then protected with a tyrx antibacterial? pouch and then secured to the fascia using a 2-0 silk to the upper eyes of the battery confirming an upward posterior facing writing of the intellus facing posterior,? once complete confirmation was obtained, the battery was then placed in the position and the the mid paramedians and the gluteal incisions were then closed primarily through a 3-0 Vicryl in a running fashion followed by a 4-0 Monocryl to the skin, hemostasis was maintained during the procedure via Bovie as well as pressure, the skin was then covered with a Steri-Strips and bacitracin and a sterile fashion patient was then returned into the supine position in a stable condition and returned to recovery in a stable condition, patient experienced no signs or symptoms of intrathecal or intravascular injection patient experienced no paresthesia the procedure was completed without any apparent difficulty or any complication the patient appeared to tolerate the procedure well, motor as well as sensory function was unchanged from prior to the procedure ESTIMATED BLOOD LOSS: Minimal less than 25 mL ASSESSMENT AND PLAN: This is a 81-year-old female with lumbosacral radiculopathy, lumbosacral degenerative disc disease and lumbosacral spinal stenosis, postlaminectomy syndrome of the lumbar spine status post 1.? Spinal cord stimulator thoracolumbar leads placement x2 #2 spinal cord stimulator Medtronic generator placement #3 spinal cord stimulator generator pocket creation at the left gluteal region #4 spinal cord stimulator complex programming, 5-intraoperative fluoroscopic interpretation patient will continue her current medications a prescription was provided to the patient?doxycycline 100 mg 1 p.o. every 12 hours for 10 days,? postop instruction were given in writing to the patient? as well as verbally, patient will follow approximately 1 week for reevaluation. ?
== END 2021-11-07 17:14 | disposition home or self-care (01) ==
LOC: SDC 11:51 → AC 11:52
PROVIDERS: PCP Preventive Medicine Occupational Medicine; Referring Provider Anesthesiology Pain Medicine; Visit Provider Anesthesiology Pain Medicine
PROC: (CPT 63685; principal; 2021-11-07 12:55)
DX: M51.17 Intervertebral disc disorders with radiculopathy, lumbosacral region (principal); M96.1 Postlaminectomy syndrome, not elsewhere classified; M48.07 Spinal stenosis, lumbosacral region; F41.9 Anxiety disorder, unspecified; E03.9 Hypothyroidism, unspecified; I10 Essential (primary) hypertension; K21.9 Gastro-esophageal reflux disease without esophagitis; E78.00 Pure hypercholesterolemia, unspecified; M54.50 Low back pain, unspecified
CPT/HCPCS: 63685; 95971; 72100; 76000; C1778; J7120

== ENCOUNTER → 2022-01-02 | Outpatient (CLI) | payer MEDICARE, SELFPAY ==
--- NOTE | 2022-01-02 12:33 | CT_ITS ---
EXAM: CT CHEST WITH INTRAVENOUS CONTRAST CLINICAL INDICATION: PARALYSIS OF VOCAL CORDS TECHNIQUE: Helically acquired images were obtained of the chest with intravenous contrast. This CT exam was performed using one or more of the following dose reduction techniques: automated exposure control, adjustment of the mA and/or kV according to patient size, and/or use of iterative reconstruction technique. This report was created using [employer]It report generation technology. CONTRAST: IV 75mL Isovue-300 RADIATION DOSE: CTDIvol = 20.81 mGy, DLP = 1484.37 mGy-cm COMPARISON: None. FINDINGS: LUNGS AND PLEURAL SPACES: Mild groundglass infiltrate of the right upper lobe suggesting an early pneumonia. No mass. No pleural effusion or thickening. HEART: Unremarkable. Heart size is normal. No pericardial effusion. No significant coronary artery calcifications. MEDIASTINUM: Unremarkable. No mediastinal or hilar adenopathy. Esophagus is unremarkable. No hiatal hernia. THYROID: Unremarkable. No thyroid lesions. BONES/JOINTS: Degenerative pannus overlying the right shoulder. There are degenerative changes of the shoulders. There are degenerative findings of the thoracic spine. No suspicious lytic or blastic abnormality. VASCULATURE: Unremarkable. Thoracic aorta is non-dilated. No thoracic aortic dissection. No obvious central pulmonary embolism although this study was not performed with the pulmonary embolism protocol. GALLBLADDER AND BILE DUCTS: The gallbladder is surgically absent. TUBES, LINES AND DEVICES: Metallic leads in the spinal canal may suggest spinal stimulator leads. CT/Chest WITH Contrast IMPRESSION: 1. Degenerative pannus overlying the right shoulder. 2. Mild groundglass infiltrate of the right upper lobe suggesting an early pneumonia. Electronically Signed: Kapil Murdock MD at 15:42 EDT ,
--- NOTE | 2022-01-02 12:34 | CT_ITS ---
EXAM: CT NECK WITH INTRAVENOUS CONTRAST CLINICAL INDICATION: PARALYSIS OF VOCAL CORDS TECHNIQUE: Helically acquired images were obtained of the neck with intravenous contrast. This CT exam was performed using one or more of the following dose reduction techniques: automated exposure control, adjustment of the mA and/or kV according to patient size, and/or use of iterative reconstruction technique. This report was created using [employer] report Vollee technology. CONTRAST: IV 75mL Isovue-300 RADIATION DOSE: CTDIvol = 20.81 mGy, DLP = 1484.37 mGy-cm COMPARISON: None. FINDINGS: NASOPHARYNX: Unremarkable. SUPRAHYOID NECK: Unremarkable. Oropharynx, oral cavity, parapharyngeal space and retropharyngeal space are unremarkable. INFRAHYOID NECK: Unremarkable. The larynx, hypopharynx and supraglottis are unremarkable. SUBMANDIBULAR/PAROTID GLANDS: Unremarkable. Glands are normal in size. THYROID: Unremarkable. No enlarged or calcified nodules. BONES/JOINTS: There are degenerative findings of the cervical spine. Degenerative changes of the mandibular condyles. No acute fracture. SOFT TISSUES: Unremarkable. VASCULATURE: There are thoracic aortic calcifications consistent for atherosclerotic disease. There is no dissection or hematoma noted in the thoracic aorta. LYMPH NODES: Unremarkable. No lymphadenopathy. LUNG APICES: Minimal right upper lobe apical infiltrate suggesting pneumonia. OTHER FINDINGS: Echogenic kidneys are suggestive of chronic medical renal disease. CT/Soft Tissue Neck WITH Contrast IMPRESSION: 1. Minimal right upper lobe apical infiltrate suggesting pneumonia. 2. There are degenerative findings of the cervical spine. Electronically Signed: Kapil Murdock MD at 15:44 EDT ,
[2022-01-02 13:05] LABS: CREATININE FINGERSTICK < 0.9 mg/dL (0.55-1.02); EGFR FINGERSTICK > 60.0000 mL/min (>60)
== END | disposition home or self-care (01) ==
LOC: CT 12:32
PROVIDERS: PCP Preventive Medicine Occupational Medicine; Referring Provider Otolaryngology; Visit Provider Otolaryngology
DX: J38.01 Paralysis of vocal cords and larynx, unilateral (principal); R49.0 Dysphonia
CPT/HCPCS: 70491; 71260; Q9967

== ENCOUNTER 2022-02-20 17:25 | Inpatient (IN) | payer MEDICARE, SELFPAY ==
--- NOTE | 2022-02-15 10:38 | RAD_ITS ---
STUDY: X-RAY CHEST REASON FOR EXAM: Female, 81 years old. PREOP TECHNIQUE: XR Chest 2 Views COMPARISON: 10.29.20 and 09/27/2012 FINDINGS: There is atherosclerotic calcification of the aortic arch with tortuosity. There are diffuse degenerative changes of the visualized thoracic spine. There is degenerative osteoarthritis of the bilateral shoulders. Metallic leads in the spinal canal may suggest spinal stimulator leads. Elevated right humeral head with eburnation of the acromion suggest a chronic rotator cuff tear. Increased compression deformity of the midthoracic spine since 2012. Normal size heart. Normal mediastinum and eb. Normal visualized pulmonary arteries. There is no demonstrated abnormality of the visualized soft tissue structures of the upper abdomen. RAD/Chest PA and Lateral IMPRESSION: Increased compression deformity of the midthoracic spine. Electronically Signed: Kapil Murdock MD at 16:59 EDT ,
--- NOTE | 2022-02-15 10:45 | EKG12_ITS ---
Test Reason : OP EKG Blood Pressure : / mmHG Vent. Rate : 067 BPM Atrial Rate : 067 BPM P-R Int : 168 ms QRS Dur : 074 ms QT Int : 408 ms P-R-T Axes : 060 002 039 degrees QTc Int : 431 ms Normal sinus rhythm Anterior infarct , age undetermined Abnormal ECG Confirmed by NIKKO LITTLE, SIMA ([id number]), video effects editor MARVA BLACK ([id number]) on 02/16/2022 9:49:06 AM Referred By: Nicho Wilkins Confirmed By:SIMA EL MD
[2022-02-15 12:21] LABS: Hematocrit 40.8 % (37-47); Mean Corp Hgb Conc 31.9 g/dL (32-36); Mean Corpuscular Hgb 29.4 pg (27.0-32.0); Mean Corpuscular Volume 92.3 fL (81-99); Mean Platelet Vol. 10.1 fl (6.2-12.0); Platelet Count 237 K/mm3 (150-450); RBC Distribution Width CV 14.4 % (11.6-14.6); RBC Distribution Width SD 48.9 fl (35.1-43.9); Red Blood Count 4.42 M/mm3 (4.2-5.4); White Blood Count 6.8 K/mm3 (4.4-11.0)
[2022-02-15 12:37] LABS: Anion Gap 7 (5-15); BUN 15 mg/dL (7-18); BUN/Creat Ratio 16.6 RATIO (10-20); Calcium,Total 9.2 mg/dL (8.5-10.1); Chloride 102 mmol/L (98-107); EST Glomerular Filtration Rate 64 mL/min (>60); Est Glom Filt Rate - Afr Amer 77 mL/min (>60); Glucose 158 mg/dL (74-106); Potassium 4.3 mmol/L (3.5-5.1); Sodium Level 141 mmol/L (136-145)
[2022-02-20] VITALS (13 sets, daily range): BP systolic 139–180; BP diastolic 68–94; PULSE 67–88; RESP 15–20; TEMP 36.2–37.5; O2SAT 83–100; BMI 41.5
[2022-02-20] MEDS: Lactated Ringers 1,000 ML 15 ML IV (11:47)
--- NOTE | 2022-02-20 12:28 | PCM.DC.SUM ---
Providers Primary Care Physician: Dr. Alfred Mckay DO Reason For Visit: PRE-OP Medications at Discharge Home Medications cholecalciferol (vitamin D3) 50 mcg (2,000 unit) tablet (Vitamin D3) 4,000 unit PO DAILY 06/02/13 furosemide 40 mg tablet 40 mg PO DAILY FLUID 06/02/13 losartan 100 mg tablet (Cozaar) 100 mg PO DAILY 06/02/13 multivitamin with folic acid 400 mcg tablet (Thera) 1 tab PO DAILY 06/02/13 potassium citrate 10 mEq (1,080 mg) tablet,extended release (Urocit-K 10) 20 meq PO DAILY 06/02/13 atenolol 25 mg tablet (Tenormin) 25 mg PO QHS 07/30/20 cetirizine 10 mg tablet (Zyrtec) 10 mg PO DAILY ALLERGIES 10/28/20 cinnamon bark 500 mg capsule (Cinnamon) 1,000 mg PO DAILY SUPPLEMENT 10/28/20 gabapentin 300 mg capsule 300 mg PO BID NERVE PAIN 10/28/20 levothyroxine 112 mcg tablet 125 mcg PO DAILY THYROID 10/28/20 sertraline 50 mg tablet (Zoloft) 50 mg PO QHS DEPRESSION 10/28/20 acetaminophen 500 mg tablet 500 mg PO TID 09/01/21 duloxetine 30 mg capsule,delayed release 60 mg PO DAILY 10/31/21 oxycodone-acetaminophen 5 mg-325 mg tablet 1 tab PO TID PRN Pain 02/16/22 Weight / BMI Weight Weight: 99.6 kg Body Mass Index (BMI) 41.5 ABG / Lab / Microbiology Data Result Diagrams: 02/15/22 10:29 02/15/22 10:29 D/C Instructions Discharge Diet: No restrictions Discharge Activity: Return to Normal Activity Additional Instructions: Absolute voice rest for 3 days When: 2 weeks Meaningful Use Info Meaningful Use Diagnoses (Choose all that apply): None applicable Discharge Plan Admission Attending Provider: Nicho Wilkins Primary Care Provider: Alfred Mckya Discharge Orders/Prescriptions Prescriptions: No Action furosemide 40 MG tablet 40 mg PO DAILY Label Comments: WATER PILL potassium citrate [Urocit-K 10] 10 MEQ tablet extended release 20 meq PO DAILY Label Comments: SUPPLEMENTS losartan [Cozaar] 100 MG tablet 100 mg PO DAILY Label Comments: BLOOD PRESSURE cholecalciferol (vitamin D3) [Vitamin D3] 2,000 UNIT tablet 4,000 unit PO DAILY Label Comments: SUPPLEMENTS multivitamin with folic acid [Thera] 1 TABLET tablet 1 tab PO DAILY Label Comments: SUPPLEMENTS atenolol [Tenormin] 25 MG tablet 25 mg PO QHS cetirizine [Zyrtec] 10 mg Tablet 10 mg PO DAILY gabapentin 300 mg capsule 300 mg PO BID Label Comments: take 1 tablet by mouth every evening sertraline [Zoloft] 50 mg tablet 50 mg PO QHS Label Comments: take 1 tablet by mouth once daily levothyroxine 112 mcg tablet 125 mcg PO DAILY Label Comments: take 1 tablet by mouth once daily cinnamon bark [Cinnamon] 500 mg Capsule 1,000 mg PO DAILY acetaminophen [Tylenol Ex Str Rapid Release] 500 mg Tablet 500 mg PO TID duloxetine 30 mg Capsule,Delayed Release(Dr/Ec) 60 mg PO DAILY oxycodone-acetaminophen 5-325 mg Tablet 1 tab PO TID PRN (Reason: Pain) Referrals / Follow Up: Alfred Mckay DO [Primary Care Provider] - Disposition Disposition (needs filled in before D/C Order can be placed): Home, Self Care
[2022-02-20] MEDS: Epinephrine (1 mg/ml) 1 MG/ML VIAL (12:40)
--- NOTE | 2022-02-20 12:53 | PCM.OPRPT ---
Report of Operation Date of Procedure: 02/20/22 Pre-Operative Diagnosis: left vocal cord paralysis Post-Operative Diagnosis: same Surgery/Procedure Performed:: Direct laryngoscopy Surgeon: Nicho Wilkins Type of Anesthesia: General Anesthesiologist: Serafin Blount Estimated Blood Loss (mL): minimal Description of Procedure: Patient was taken to the operating room on 02/20/2022. She was placed in the supine position on the operating room table. She was given sufficient general endotracheal anesthesia. The table was turned 90 degrees in a clockwise fashion. A gum guard was placed on the patient's upper dentition. She was draped sterilely. A Dedo laryngoscope inserted the patient's mouth and then into the oropharynx I was only able to expose the arytenoids and posterior most portion of the true vocal cords the vocal process could not be identified. I then placed a Vickie laryngoscope into the mouth and then into the pharynx. The view with this laryngoscope was even worse and the true vocal cords could not be visualized. I then tried a glide a scope. I inserted this into the patient's mouth and pharynx and the larynx was exposed. I then tried to place a micro suction to suction the glottic inlet. And this was impossible because of the anterior nature of her larynx. I then tried to insert a spatula to see if I could maneuver this anteriorly to the vocal cords and I could not. Because of the poor visualization and an inability to maneuver instruments to the appropriate place for injection, I decided to not inject the left true vocal cord. The procedure was terminated and all instrumentation was removed. She was turned back to the regular anesthesia position and awoken she was brought to recovery room in stable condition. Blood loss minimal, replacement none. Sponge needle and instrument count were correct at the end of the procedure.
[2022-02-20] MEDS: Ipratropium/Albuterol Sulfate 3 ML AMPUL.NEB INHALATION (15:39)
--- NOTE | 2022-02-20 16:20 | RAD_ITS ---
INDICATION: low pox EXAMINATION/TECHNIQUE: X-RAY - XR Chest 2 Views COMPARISON: 02/15/2022. FINDINGS: Chronic lung changes. No acute lung findings. Tortuous and calcified thoracic aorta. The heart is not enlarged. Chronic elevation of the right hemidiaphragm. No pleural effusion or pneumothorax. Degenerative changes of the thoracic spine. Chronic compression deformity of a midthoracic vertebral body. RAD/Chest PA and Lateral IMPRESSION: No acute radiographic abnormalities. Electronically Signed: Lon Bee MD at 17:40 EDT ,
--- NOTE | 2022-02-20 17:26 | HP.PCM.HOS_ITS ---
HPI - General General Date of Service: 02/20/22 Chief Complaint: Recent OR, vocal cord evaluation/injection, hypoxia following. HPI Narrative The patient is an 81 y/o F w/ PMHx: Chronic pain syndrome (Back pain) s/p nerve stimulator placement, HTN, HLD, GERD, Morbid Obesity, Hx Migraines, Anxiety and Depression, Hypothyroidism who presents to the [facility] for planned PE with planned left vocal cord evaluation secondary to ongoing paralysis with hoarse voice however Dr. Penaloza noted significant issues with attempting laryngoscopy with inability to inject secondary to significant anatomic variation reporting anatomy extremely anterior with general anesthetic administered and unfortunately following inability to wean patient off oxygen supplementation noting a drop on room air to 82 to 86% and improvement to 95% on 2 L nasal cannula with no reported dyspnea, chest pain, significant cough, recent fevers or chills. Patient did have evaluation in January with CT neck and chest at that time with evidence of pneumonia and treatment outpatient with preoperative repeat chest x-ray noted to be clear. Patient does report significant back discomfort, lumbar and thoracic currently secondary to prolonged OR positioning with her stimulator off, rating it 6 out of 10 however worse with any movement attempt. Work-up initiated by anesthesia and ENT included a repeat chest x-ray which demonstrated no acute cardiopulmonary findings. Given patient ongoing hypoxia ENT requested patient be admitted for further evaluation. Upon evaluation and discussion with family patient's nerve stimulator was restarted. [facility] Medical History (Updated 02/20/22 @ 18:[address] Ariela Beck MD) Anxiety Arthritis Back pain Gastric reflux High cholesterol History of edema History of irregular heartbeat History of pain when walking HTN (hypertension) Hyperlipidemia Injury of head and neck Migraine headache Non-smoker Ovarian cyst Post-menopausal Shortness of breath on exertion Spinal cord stimulator status Syncope Thyroid disease Walker as ambulation aid Wears glasses Home Medications cholecalciferol (vitamin D3) 50 mcg (2,000 unit) tablet (Vitamin D3) 4,000 unit PO DAILY 06/02/13 [History Last Taken 10/27/20] furosemide 40 mg tablet 40 mg PO DAILY FLUID 06/02/13 [History Last Taken 10/27/20] losartan 100 mg tablet (Cozaar) 100 mg PO DAILY 06/02/13 [History Last Taken 02/20/22 09:00] multivitamin with folic acid 400 mcg tablet (Thera) 1 tab PO DAILY 06/02/13 [History Last Taken 10/27/20] potassium citrate 10 mEq (1,080 mg) tablet,extended release (Urocit-K 10) 20 meq PO DAILY 06/02/13 [History Last Taken 10/28/20] atenolol 25 mg tablet (Tenormin) 25 mg PO QHS 07/30/20 [History Last Taken 02/20/22 09:00] cetirizine 10 mg tablet (Zyrtec) 10 mg PO DAILY ALLERGIES 10/28/20 [History Last Taken 10/28/20] cinnamon bark 500 mg capsule (Cinnamon) 1,000 mg PO DAILY SUPPLEMENT 10/28/20 [History Last Taken 10/27/20] gabapentin 300 mg capsule 300 mg PO BID NERVE PAIN 10/28/20 [History Last Taken 02/20/22 09:00] levothyroxine 112 mcg tablet 125 mcg PO DAILY THYROID 10/28/20 [History Last Taken 02/20/22 09:00] sertraline 50 mg tablet (Zoloft) 50 mg PO QHS DEPRESSION 10/28/20 [History Last Taken 10/27/20] acetaminophen 500 mg tablet 500 mg PO TID 09/01/21 [History Last Taken 02/20/22 09:00] duloxetine 30 mg capsule,delayed release 60 mg PO DAILY 10/31/21 [History Last Taken Unknown] oxycodone-acetaminophen 5 mg-325 mg tablet 1 tab PO TID PRN Pain 02/16/22 [History Last Taken Unknown] Allergy/AdvReac Type Severity Reaction Status Date / Time codeine phosphate Allergy Severe Rash Verified 02/20/22 11:36 [From Tylenol-Codeine #3] diazepam [From Valium] Allergy Severe Rash Verified 02/20/22 11:36 prochlorperazine edisylate Allergy Severe Other Verified 02/20/22 11:36 [From Compazine] prochlorperazine maleate Allergy Severe Other Verified 02/20/22 11:36 [From Compazine] amoxicillin trihydrate Allergy Rash Verified 02/20/22 11:36 [From Augmentin] ampicillin Allergy Rash Verified 02/20/22 11:36 cephalexin monohydrate Allergy Rash Verified 02/20/22 11:36 [From Keflex] chlorpheniramine maleate Allergy Rash Verified 02/20/22 11:36 [From Chlor-Trimeton] dexamethasone [From Decadron] Allergy Other Verified 02/20/22 11:36 dexamethasone sod phosphate Allergy Other Verified 02/20/22 11:36 [From Decadron] levofloxacin [From Levaquin] Allergy Rash Verified 02/20/22 11:36 lorazepam [From Ativan] Allergy Rash Verified 02/20/22 11:36 Penicillins Allergy Rash Verified 02/20/22 11:36 potassium clavulanate Allergy Rash Verified 02/20/22 11:36 [From Augmentin] Family History (Updated 02/20/22 @ 17:[address] Ariela Beck MD) Father Heart disease Mother Heart disease Diabetes Hypertension Surgical History History of appendectomy History of back surgery History of hysterectomy History of surgery History of Zenker's diverticulum removal Hx of cholecystectomy Hx of ovarian cystectomy Hx of surgical procedure Hx of tonsillectomy Social History (Updated 02/20/22 @ 17:[address] Ariela Beck MD) household members: spouse and family Smoking Status: Never smoker alcohol intake: never substance use type: does not use ROS ROS Narrative Admission Review of Systems: CONSTITUTIONAL: No weight loss, fever, chills, + weakness or fatigue. HEENT: + Hoarse voice, + congestion. Eyes: No visual loss, blurred vision, double vision or yellow sclerae. Ears, Nose, Throat: No hearing loss, sneezing. SKIN: No rash or itching, lesions, wounds. CARDIOVASCULAR: No chest pain, chest pressure or chest discomfort, palpitations, edema, orthopnea, syncopal events. RESPIRATORY: + recent PNA with cough, Currently denies shortness of breath, cough or sputum, wheezing, hemoptysis. GASTROINTESTINAL: No anorexia, nausea, vomiting or diarrhea, abdominal pain, melena, BRBPR. GENITOURINARY: No dysuria, frequency, urgency or retention. NEUROLOGICAL: No headache, dizziness, syncope, paralysis, ataxia, numbness or tingling in the extremities, focal weakness, change in bowel or bladder control, seizure. MUSCULOSKELETAL: + muscle, back pain, joint pain or stiffness. HEMATOLOGIC: No anemia, bleeding or bruising. LYMPHATICS: No enlarged nodes. No history of splenectomy. PSYCHIATRIC: + history of depression or anxiety. ENDOCRINOLOGIC: No reports of sweating, cold or heat intolerance. No polyuria or polydipsia. ALLERGIES:+ history of rhinitis. Vital Signs Vital Signs Vital Signs: 02/20/22 11:38 02/20/22 11:38 02/20/22 13:17 Temperature 98.7 F 97.2 F L Temperature Source Temporal Temporal Pulse Rate 67 71 Respiratory Rate 18 16 Respiratory Pattern Normal Normal Blood Pressure 171/82 H 139/77 H Blood Pressure Mean 111 97 Blood Pressure Source Monitor Monitor Blood Pressure Position Semi-Fowlers Semi-Fowlers Blood Pressure Location Left Arm Right Arm Baseline BP 171/82 Pulse Ox 98 97 Oxygen Delivery Method Nasal Cannula Oxygen Flow Rate (L/min) 4 02/20/22 13:30 02/20/22 13:45 02/20/22 14:00 Temperature 97.6 F L Temperature Source Temporal Pulse Rate 71 69 Respiratory Rate 16 16 16 Respiratory Pattern Blood Pressure 172/82 H 178/75 H 180/68 H Blood Pressure Mean 112 109 105 Blood Pressure Source Monitor Monitor Monitor Blood Pressure Position Semi-Fowlers Semi-Fowlers Semi-Fowlers Blood Pressure Location Right Arm Left Arm Left Arm Baseline BP 171/82 171/82 171/82 Pulse Ox 100 97 95 Oxygen Delivery Method Nasal Cannula Room Air Room Air Oxygen Flow Rate (L/min) 4 02/20/22 14:14 02/20/22 15:00 02/20/22 16:11 Temperature 97.4 F L Temperature Source Temporal Pulse Rate 78 74 Respiratory Rate 16 16 Respiratory Pattern Normal Blood Pressure 173/71 H 155/77 H Blood Pressure Mean 105 103 Blood Pressure Source Monitor Monitor Blood Pressure Position Semi-Fowlers Semi-Fowlers Blood Pressure Location Left Arm Left Arm Baseline BP 171/82 171/82 Pulse Ox 83 83 Oxygen Delivery Method Room Air Room Air Oxygen Flow Rate (L/min) 02/20/22 15:40 02/20/22 16:55 Temperature 97.6 F L Temperature Source Temporal Pulse Rate 73 88 Respiratory Rate 15 16 Respiratory Pattern Normal Blood Pressure 149/76 H Blood Pressure Mean 100 Blood Pressure Source Monitor Blood Pressure Position Semi-Fowlers Blood Pressure Location Right Arm Baseline BP 171/82 Pulse Ox 95 Oxygen Delivery Method Nasal Cannula Oxygen Flow Rate (L/min) 2 Weight Weight: 219 lb 9.286 oz Body Mass Index (BMI) 41.5 Physical Exam Narrative Physical Examination: General: Awake, alert, oriented x 3 and cooperative, chronically hoarse voice unchanged per discussion with patient and family, laying in the ambulatory bed, notes back discomfort with recent procedure positioning, turning on nerve stimulator currently. Skin: Normal color, normal turgor, no icterus, no cyanosis. HEENT: AT/NC, EOMI, PERRLA, mildly dry MM, no carotid bruits or JVD noted, ongoing unchanged hoarse voice. Lungs: Diminished, greater bases, appropriate effort, no rales, ronchi or wheezing. Heart: Regular rate and rhythm; no gallop, rub audible. Abdomen: Soft, morbidly obese, NTTP, ND, distant mildly hyperactive BS, no obvious evidence of HSM; however, habitus makes evaluation to. Extremities: No cyanosis, no clubbing, mild bilateral ankle not markedly pitting edema. Neurological: Patient awake, alert, oriented as noted, cognitive function intact; pupils equally reactive to light and accommodation, cranial nerves II- XII grossly normal, moving all 4 extremities, no focal deficits, strength moderately global decrease secondary to recent significantly prolonged po sitioning 4 OR complicated by chronic back pain Psychiatric: Affect appears fatigued otherwise normal, no acute evidence of depressive or anxiety feelings. Results Lab / Micro Data Result Diagrams: 02/15/22 10:29 02/15/22 10:29 Assessment & Plan Assessment/Plan (1) Hypoxia: PLAN: Plan The patient is an 81 y/o F w/ PMHx: Chronic pain syndrome (Back pain) s/p nerve stimulator placement, HTN, HLD, GERD, Morbid Obesity, Hx Migraines, Anxiety and Depression, Hypothyroidism who presents to the [facility] for planned PE with planned left vocal cord evaluation secondary to ongoing paralysis with hoarse voice however Dr. Penaloza noted significant issues with attempting laryngoscopy with inability to inject secondary to significant anatomic variation reporting anatomy extremely anterior with general anesthetic administered and unfortunately following inability to wean patient off oxygen supplementation noting a drop on room air to 82 to 86% and improvement to 95% on 2 L nasal ca nnula with no reported dyspnea, chest pain, significant cough, recent fevers or chills. #1. Acute hypoxia, unclear etiology but suspect combination anesthetics coupled with potentially undiagnosed sleep apnea and hypoventilation syndrome: We will admit to medical surgical floor, maintain on oxygen supplementation with wean as tolerated to room air, encourage strongly continued I-S, continue to monitor overnight for any concern of underlying undiagnosed CODY given thickened neck and habitus, restart patient nerve stimulator to avoid any excessive use of pain medication given chronic pain syndrome exacerbated by recent positioning for OR, continue judicious hydration and plan a.m. repeat chest x-ray to assure no blossoming pneumonia, tolerated liquids and Jell-O in the ambulatory area the refore we will transition to regular diet but if any concerns arise low threshold to make n.p.o. and involve speech therapy. Per discussion with ENT will obtain COIVD antigen, respiratory viral panel and if onset thick sputum will obtain sputum Cx. #2. Chronic hoarse voice secondary to left vocal cord paralysis: We will continue ENT consultation, unfortunately 02/20/2022 procedure with inability to inject vocal cords secondary to extremely anterior anatomy, maintain on aspiration precautions, low threshold to transition to n.p.o. status with speech therapy if intake concerns arise. #3. Chronic pain syndrome, back pain: Status post nerve stimulator placement, will resume, continue patient home duloxetine, gabapentin and oxycodone regimen. Encourage frequent positional changes. Fall precautions. #4. Hypertension: Continue home regimen including atenolol, Lasix, losartan with hold parameters as needed, PRN hydralazine. #5. Hyperlipidemia: Not on regimen, defer to outpatient. #6. Hypothyroidism: We will continue patient on levothyroxine regimen. #7. Anxiety and depression: We will continue patient home Zoloft regimen, also noted to be on low-dose duloxetine. #8. Morbid Obesity: Weight loss and lifestyle changes encouraged. #9. DVT prophylaxis: SCDs, Lovenox based on review of recent preop labs 02/15/2022. #10. CODE status: Patient HCPOA is the patient's and daughter who is present and living will is currently in place. Discussed CODE status at length including difference between FULL code, DNR-CCA and DNR-CC status. Following discussions about the differences in these status, requested DNR-CCA, no intubation status. Advanced Care Planning Face to Face Time: 16 minutes. Charges/Coding Visit Charges OBSV E&M: 83394 Initial observation care L3 Procedures Hospitalists Procedures: 84288 Advncd Care Plan 30 Min
[2022-02-20] MEDS: 0.9% Normal Saline 1,000 ML 100 ML IV (20:18)
[2022-02-20] MEDS: oxyCODONE 5 MG Tablet PO (20:25)
[2022-02-20] MEDS: Sertraline 50 MG Tablet PO (21:56)
[2022-02-20] MEDS: Atenolol 25 MG Tablet PO (21:56)
[2022-02-20] MEDS: Enoxaparin 40 MG/0.4 ML Syringe SC (21:56)
[2022-02-20] MEDS: Gabapentin 300 MG Capsule PO (21:56)
[2022-02-21] VITALS (10 sets, daily range): BP systolic 105–130; BP diastolic 48–89; PULSE 68–72; RESP 14–20; TEMP 36.6–37.1; O2SAT 87–98
--- NOTE | 2022-02-21 05:55 | RAD_ITS ---
STUDY: X-RAY CHEST REASON FOR EXAM: Female, 81 years old. Dyspnea TECHNIQUE: Single AP portable view of the chest. COMPARISON: Comparison is made with prior study dated 02/20/2022. FINDINGS: Stable elevation of the right hemidiaphragm. Stable mild increased linear markings at the right lung base. There is no demonstrated pleural abnormality. Normal size heart. Normal mediastinum and eb. Normal visualized pulmonary arteries. There is atherosclerotic calcification of the aortic arch with tortuosity. Electrodes from a TENS unit are seen with the tip at the T8-T9 level. There are diffuse degenerative changes of the visualized thoracic spine. Normal visualized ribs, clavicles, and shoulders. There is no demonstrated abnormality of the visualized soft tissue structures of the upper abdomen. RAD/Chest 1 View (Portable) IMPRESSION: Stable elevation of the right hemidiaphragm with mild increased markings at the right lung base suggestive of atelectasis and/or scarring. Electronically Signed: Catrachito Boyd MD at 8:14 EDT ,
[2022-02-21] MEDS: Levothyroxine 125 MCG Tablet PO (06:05)
[2022-02-21] MEDS: oxyCODONE 5 MG Tablet PO (06:05)
[2022-02-21] MEDS: 0.9% Normal Saline 1,000 ML 100 ML IV (06:06)
[2022-02-21 06:35] LABS: Absolute Lymphocyte Count 2.06 X10^3/uL (0.83-4.51); Absolute Neutrophil Count 6.8 X10^3/uL (2.0-7.7); Basophil# 0.05 X10^3/uL; Basophil% 0.5 % (0-1); Eosinophil# 0.13 X10^3/uL; Eosinophils% 1.3 % (0-5); Hematocrit 38.4 % (37-47); Hemoglobin 11.8 g/dL (12.0-15.0); Lymphocyte # 2.06 X10^3/ul (0.83-4.51); Lymphocyte % 20.5 % (19-41); Mean Corp Hgb Conc 30.7 g/dL (32-36); Mean Corpuscular Hgb 28.8 pg (27.0-32.0); Mean Corpuscular Volume 93.7 fL (81-99); Mean Platelet Vol. 9.9 fl (6.2-12.0); Monocyte# 0.98 X10^3/uL; Monocyte% 9.7 % (0-10); NRBC Flagged by Analyzer 0 % (0-5); Neutrophil % 67.6 % (47-70); Platelet Count 244 K/mm3 (150-450); RBC Distribution Width CV 14.8 % (11.6-14.6); RBC Distribution Width SD 51.2 fl (35.1-43.9); White Blood Count 10.1 K/mm3 (4.4-11.0)
[2022-02-21 07:09] LABS: ALB/GLOB Ratio 0.8 RATIO (0.9-2.4); AST(SGOT) 18 U/L (15-37); Alanine Aminotransfer ALT/SGPT 14 U/L (13-56); Albumin, Serum 2.8 g/dL (3.2-5.0); Alkaline Phosphatase 85 U/L (45-117); Anion Gap 4 (5-15); BUN 17 mg/dL (7-18); BUN/Creat Ratio 23.8 RATIO (10-20); Calcium,Total 8.4 mg/dL (8.5-10.1); Chloride 106 mmol/L (98-107); Creatinine, Serum 0.71 mg/dL (0.55-1.02); EST Glomerular Filtration Rate 83 mL/min (>60); Est Glom Filt Rate - Afr Amer 101 mL/min (>60); Estimated Creatinine Clearance 32.73 ml/min; Globulin 3.4 g/dL (2.2-4.2); Glucose 132 mg/dL (74-106); Protein, Total 6.2 g/dL (6.4-8.2); Sodium Level 142 mmol/L (136-145)
[2022-02-21] MEDS: Enoxaparin 40 MG/0.4 ML Syringe SC ×2 (10:30→21:23)
--- NOTE | 2022-02-21 12:18 | PCM.PN.BLA ---
Progress Note The patient continues to have a sore throat and left ear pain. She has been out of bed to the bathroom and chair PE: awake alert nad. Neck-no sq air. +tenderness left neck A: hypoxia, still on O2 left vocal cord paralysis now POD#1 s/p direct laryngoscopy P: she can be discharged once her oxygenation is better. I would hold off on any swallowing studies for a week after having the laryngoscopy. She will likely need thickened liquids given her left vocal cord paralysis.
--- NOTE | 2022-02-21 13:12 | CPS ---
started by nursing
--- NOTE | 2022-02-21 13:45 | PN.HOSP_ITS ---
Subjective Subjective Patient seen and examined. She had no active complaints this morning. She did not think she was short of breath. She did have an occasional cough. She denied any chest pain, palpitations, dizziness, nausea vomiting or diarrhea. Review of systems otherwise negative. Objective Data Objective Data Vital Signs: Vital Signs Temp Pulse Resp BP Pulse Ox O2 Del Method O2 Flow Rate 98.7 F 69 14 105/65 96 Nasal Cannula 2 02/21/22 08:16 02/21/22 06:44 02/21/22 08:16 02/21/22 08:16 02/21/22 10:12 02/21/22 09:46 02/21/22 10:12 Oxygen Flow Rate (L/min) 2 Oxygen Delivery Method Nasal Cannula Weight: 221 lb 5.506 oz Body Mass Index (BMI) 41.5 Intake & Output: Intake and Output for Last 24 Hours 02/19/22 02/20/22 02/21/22 23:59 23:59 23:59 Intake Total 115.5 / 115.5 980 / 980 Balance 115.5 / 115.5 980 / 980 Lab / Micro Data Result Diagrams: 02/21/22 05:50 02/21/22 05:50 Labs: Laboratory Results - last 24 hr 02/21/22 05:50: WBC 10.1, RBC 4.10 L, Hgb 11.8 L, Hct 38.4, MCV 93.7, MCH 28.8, MCHC 30.7 L, RDW Std Deviation 51.2 H, RDW Coeff of Mary 14.8 H, Plt Count 244, MPV 9.9, Immature Gran % (Auto) 0.400, Neut % (Auto) 67.6, Lymph % (Auto) 20.5, Dewitt % (Auto) 9.7, Eos % (Auto) 1.3, Baso % (Auto) 0.5, Absolute Neuts (auto) 6.8, Absolute Lymphs (auto) 2.06, Nucleated RBC % 0 02/21/22 05:50: Sodium 142, Potassium 4.0, Chloride 106, Carbon Dioxide 32.0, Anion Gap 4 L, BUN 17, Creatinine 0.71, Estim Creat Clear Calc 32.73, Est GFR (MDRD) Af Amer 101, Est GFR (MDRD) Non-Af 83, BUN/Creatinine Ratio 23.8 H, Glucose 132 H, Calcium 8.4 L, Total Bilirubin 0.40, AST 18, ALT 14, Alkaline Phosphatase 85, Total Protein 6.2 L, Albumin 2.8 L, Globulin 3.4, Albumin/Globulin Ratio 0.8 L Micro: Microbiology 02/20/22 17:51 Interface Orders SARS-CoV-2 Antigen (Rapid) - Final Radiography Diagnostic Testing: Radiology Impression Chest X-Ray 02/20/22 16:20 IMPRESSION: No acute radiographic abnormalities. Electronically Signed: Lon Bee MD at 17:40 EDT , Chest X-Ray 02/21/22 05:55 IMPRESSION: Stable elevation of the right hemidiaphragm with mild increased markings at the right lung base suggestive of atelectasis and/or scarring. Electronically Signed: Catrachito Boyd MD at 8:14 EDT , Physical Exam Const alert, oriented x3 and no apparent distress Constitutional Narrative: frail HEENT head/scalp atraumatic, moist oral mucous membranes and oropharynx normal Head and Scalp: normocephalic Mouth: oral and palatal mucosa normal Eyes PERRL, EOMs intact bilaterally and conjunctivae normal Neck no lymphadenopathy, supple and no JVD Resp Resp Narrative: diminished breath sounds bibasally, bilateral crackles. On 2L of oxygen. Cardio regular rate, regular rhythm, S1 normal heart sound, S2 normal heart sound and no murmurs GI normal to inspection, nondistended, normoactive bowel sounds, soft to palpation, non-tender and non-distended Extremity normal to inspection and full ROM Neuro oriented x3, CN's II-XII intact bilaterally, moves all extremities and no focal motor deficits Sensorium / Orientation: awake and alert Motor Exam: strength 5/5 throughout Psych affect normal Assessment & Plan Assessment/Plan (1) Hypoxia: PLAN: Plan #Hypoxia due to probable aspiration and effect of anesthesia * Originally came in for surgery on her vocal cords. It was meant to be a same- day surgery but patient subsequently became hypoxic and so was admitted. * Remains on 2 L of oxygen. Patient failed swallow evaluation and is now completely NPO. * Chest x-ray showed no acute cardiopulmonary process. * Titrate oxygen to maintain saturation above 90%. Breathing treatments with bronchodilators. * Encourage incentive spirometry use. Will need referral to pulmonology on outpatient basis to be assessed for sleep apnea. * #Chronic hoarseness due to left vocal cord paralysis * Was unable to have procedure done on her vocal cords due to extreme anterior anatomy. * Follow-up with ENT on outpatient basis.\ * #Chronic pain syndrome: Has nerve stimulator in place. On duloxetine and gabapentin as well as oxycodone. #Hypertension: On atenolol and losartan as well as Lasix #Hypothyroidism: On Synthroid #Anxiety and depression: On Zoloft and duloxetine #Morbid obesity: * BMI is 41.8. * This will likely be contributing to possible CODY and obesity hypoventilation syndrome for which she will need follow-up with pulmonology on outpatient basis. DVT prophylaxis: Lovenox Charges/Coding Visit Charges Inpatient E&M: 75591 Subs Hosp L3
[2022-02-21 15:15] LABS: BNP,B-Type NATRIURETIC PEPTIDE 210.6 pg/mL (0-100)
--- NOTE | 2022-02-21 15:57 | CASEMGMT ---
Social Work Sw in to verify AD with pt. Pt confirmed HCPOA and LW. Pt named daughter Lilly as agent. SW informed these documents are not on file at [facility]. Pt stated would see if daughter has copies and can bring them in. CARLOS Marin
[2022-02-21] MEDS: 0.9% Saline Lock 10 ML Syringe IV (16:32)
[2022-02-21] MEDS: Furosemide 40 MG/4 ML Vial IV (16:32)
--- NOTE | 2022-02-21 17:10 | NURSING ---
Addendum entered by Inez Norris 02/21/22 17:19: pt states :my pain varies through out the day it can be a 5-6 up to an 8-9/10. states chronically in my back, in my hip and down my leg states currently pain level is a 6-7/10. pt up in chair, leaned back, slightly fidgeting in chair able to converse and is distractible. unable to take po meds so will text md. Original Note: Nurse inquires about chronic pain: states she has a spinal stimulator and her daughter turned it off before surgery and then turned it back on after surgery.
[2022-02-22] VITALS (13 sets, daily range): BP systolic 117–160; BP diastolic 47–92; PULSE 71–82; RESP 16–20; TEMP 36.8–37.4; O2SAT 83–98
[2022-02-22] MEDS: Albuterol 2.5 MG/3 ML VIAL.NEB. INHALATION ×4 (00:32→21:46)
[2022-02-22] MEDS: 0.9% Saline Lock 10 ML Syringe IV (06:40)
[2022-02-22] MEDS: Ondansetron 4 MG/2 ML Vial IV ×2 (06:40→16:43)
[2022-02-22 07:30] LABS: Absolute Lymphocyte Count 1.76 X10^3/uL (0.83-4.51); Absolute Neutrophil Count 5.7 X10^3/uL (2.0-7.7); Basophil# 0.02 X10^3/uL; Basophil% 0.2 % (0-1); Eosinophil# 0.14 X10^3/uL; Eosinophils% 1.6 % (0-5); Hematocrit 37.9 % (37-47); Hemoglobin 11.5 g/dL (12.0-15.0); Lymphocyte # 1.76 X10^3/ul (0.83-4.51); Lymphocyte % 20.7 % (19-41); Mean Corp Hgb Conc 30.3 g/dL (32-36); Mean Corpuscular Hgb 28.6 pg (27.0-32.0); Mean Corpuscular Volume 94.3 fL (81-99); Mean Platelet Vol. 10.2 fl (6.2-12.0); Monocyte# 0.82 X10^3/uL; Monocyte% 9.6 % (0-10); NRBC Flagged by Analyzer 0 % (0-5); Neutrophil # 5.72 X10^3/uL (2.7-7.7); Neutrophil % 67.4 % (47-70); Platelet Count 239 K/mm3 (150-450); RBC Distribution Width CV 14.2 % (11.6-14.6); Red Blood Count 4.02 M/mm3 (4.2-5.4); White Blood Count 8.5 K/mm3 (4.4-11.0)
[2022-02-22 08:01] LABS: Anion Gap 8 (5-15); BUN 11 mg/dL (7-18); BUN/Creat Ratio 17.6 RATIO (10-20); Calcium,Total 8.8 mg/dL (8.5-10.1); Chloride 100 mmol/L (98-107); Creatinine, Serum 0.62 mg/dL (0.55-1.02); EST Glomerular Filtration Rate 97 mL/min (>60); Est Glom Filt Rate - Afr Amer 118 mL/min (>60); Estimated Creatinine Clearance 32.73 ml/min; Glucose 159 mg/dL (74-106); Potassium 3.4 mmol/L (3.5-5.1); Sodium Level 138 mmol/L (136-145)
--- NOTE | 2022-02-22 09:26 | CASEMGMT ---
DIMITRY RIVERS Assessment: Face to Face with pt for initial transition planning/care coordination assessment. DIMITRY RIVERS introduced self and role at [facility], pt voices understanding and consents to assessment. Pt is A/O x4 and answers all questions appropriately at this time. Pt lying in bed with oxygen on in no distress. Care providers, pharmacy, and demographics verified/updated. Admitting Dx: vocal cord injection- low pox PCP:Nely Specialists:Franky, ENT; bran Arriola mgmt Preferred Pharmacy: [facility] Insurance: [place] [employer] Prescription Benefit: yes LNOK: Constantino Winslow, ; Lilly Morales, dtr Living Arrangements: Pt lives with in a single story house with a stair lift to enter. Pt reports her assists her with ADL's and does housekeeping tasks. Pt denies concerns at home. Transportation: Pt has not driven in a year and states her dtr transports her to medical appts. DME/HHC/SNF: Pt has a walk in shower, grab bars in the bathroom, rollator and w/c at home. Pt denies hx of HHC or SNF stays. Pt states no concerns with going home at time of dc. Pt states physically she is at baseline. available to help. Provided pt with a local in network list of DME companies should pt need oxygen, pt chose [employer]. Pt is interested in HHC for education regarding oxygen should she need it. Discussed the homegoing oxygen process with patient and dtr who is present in room. Pt states no further concerns/needs. CM to follow. Advised pt to ask CM if any further question/concerns/needs arise, voices understanding. Pt Goal: Home Plan: Home, follow for oxygen- will need pox and HHC
[2022-02-22] MEDS: Enoxaparin 40 MG/0.4 ML Syringe SC ×2 (10:20→21:29)
[2022-02-22] MEDS: Acetaminophen 325 MG Tablet 650 MG PO ×2 (11:02→16:31)
--- NOTE | 2022-02-22 11:31 | PN.HOSP_ITS ---
Subjective Subjective Patient seen and examined. She complained of cough, which was productive. She denied any fever, chills, chest pain, palpitations, dizziness, nausea, vomiting or diarrhea. Review of systems is otherwise negative. Objective Data Objective Data Vital Signs: Vital Signs Temp Pulse Resp BP Pulse Ox O2 Del Method O2 Flow Rate 98.2 F 77 16 117/47 L 94 Nasal Cannula 2 02/22/22 03:00 02/22/22 05:05 02/22/22 05:05 02/22/22 03:00 02/22/22 09:15 02/22/22 09:15 02/22/22 09:15 Oxygen Flow Rate (L/min) [At 2 REST with Oxygen] Oxygen Flow Rate (L/min) [ 2 AMBULATING with Oxygen #1] Oxygen Flow Rate (L/min) 2 Oxygen Delivery Method Nasal Cannula Weight: 223 lb 5.252 oz Body Mass Index (BMI) 41.5 Intake & Output: Intake and Output for Last 24 Hours 02/20/22 02/21/22 02/22/22 23:59 23:59 23:59 Intake Total 115.5 / 115.5 1979 1000 / 1000 Balance 115.5 / 115.5 1979 1000 / 1000 Lab / Micro Data Result Diagrams: 02/22/22 06:15 02/22/22 06:15 Labs: Laboratory Results - last 24 hr 02/21/22 05:50: B-Natriuretic Peptide 210.6 H 02/22/22 06:15: WBC 8.5, RBC 4.02 L, Hgb 11.5 L, Hct 37.9, MCV 94.3, MCH 28.6, MCHC 30.3 L, RDW Std Deviation 49.0 H, RDW Coeff of Mary 14.2, Plt Count 239, MPV 10.2, Immature Gran % (Auto) 0.500, Neut % (Auto) 67.4, Lymph % (Auto) 20.7, Edwards % (Auto) 9.6, Eos % (Auto) 1.6, Baso % (Auto) 0.2, Absolute Neuts (auto) 5.7, Absolute Lymphs (auto) 1.76, Nucleated RBC % 0 02/22/22 06:15: Sodium 138, Potassium 3.4 L, Chloride 100, Carbon Dioxide 30.0, Anion Gap 8, BUN 11, Creatinine 0.62, Estim Creat Clear Calc 32.73, Est GFR (MDRD) Af Amer 118, Est GFR (MDRD) Non-Af 97, BUN/Creatinine Ratio 17.6, Glucose 159 H, Calcium 8.8 Micro: Microbiology 02/21/22 09:49 Sputum, Expectorated/Coughed Gram Stain - Final 02/21/22 09:49 Sputum, Expectorated/Coughed Respiratory Culture - Preliminary Appears to be normal respiratory rufus. Further studies to follow. 02/20/22 17:51 Interface Orders SARS-CoV-2 Antigen (Rapid) - Final Physical Exam Const alert, oriented x3 and no apparent distress Constitutional Narrative: frail HEENT head/scalp atraumatic, moist oral mucous membranes and oropharynx normal Head and Scalp: normocephalic Mouth: oral and palatal mucosa normal Eyes PERRL, EOMs intact bilaterally and conjunctivae normal Neck no lymphadenopathy, supple and no JVD Resp Resp Narrative: diminished breath sounds bibasally, bilateral crackles. On 2L of oxygen. Cardio regular rate, regular rhythm, S1 normal heart sound, S2 normal heart sound and no murmurs GI normal to inspection, nondistended, normoactive bowel sounds, soft to palpation, non-tender and non-distended Extremity normal to inspection and full ROM Neuro oriented x3, CN's II-XII intact bilaterally, moves all extremities and no focal motor deficits Sensorium / Orientation: awake and alert Motor Exam: strength 5/5 throughout Psych affect normal Assessment & Plan Assessment/Plan (1) Hypoxia: PLAN: Plan #Hypoxia due to probable aspiration and effect of anesthesia * still on 2L of oxygen by nasal canula * Remains on 2 L of oxygen. Patient failed swallow evaluation and is now completely NPO. * Chest x-ray showed no acute cardiopulmonary process. * Titrate oxygen to maintain saturation above 90%. Breathing treatments with bronchodilators. * Encourage incentive spirometry use. Will need referral to pulmonology on outpatient basis to be assessed for sleep apnea. * #Chronic hoarseness due to left vocal cord paralysis * Was unable to have procedure done on her vocal cords due to extreme anterior anatomy. * Follow-up with ENT on outpatient basis. * failed dysphagia, though with all the instrumentation she had during the surgery, the dysphagia is to be expected * started on applesauce; advance diet slowly as per speech therapy * #Chronic pain syndrome: Has nerve stimulator in place. On duloxetine and gabapentin as well as oxycodone. #Hypertension: On atenolol and losartan as well as Lasix #Hypothyroidism: On Synthroid #Anxiety and depression: On Zoloft and duloxetine #Morbid obesity: * BMI is 41.8. * This will likely be contributing to possible CODY and obesity hypoventilation syndrome for which she will need follow-up with pulmonology on outpatient basis. DVT prophylaxis: Lovenox Charges/Coding Visit Charges Inpatient E&M: 58929 Subs Hosp L2
--- NOTE | 2022-02-22 11:39 | SP.MBSS_ITS ---
Modified Barium Swallow - Patient Information Study Date: 02/22/22 Study Time: 13:30 Direct Billable Minutes: 109 Total Minutes procedure & reportin Diagnosis: Hypoxia (R09.02), Hiatal hernia with GERD (K21.9) Referring Physician: Nicho Wilkins Reason for Referral: Objectively assess swallow function, risk for aspiration, and determine recommendations for least restrictive diet textures and compensatory strategies to improve safety of swallow. Medical History: The patient is an 81-year-old female PMH including chronic pain syndrome (back pain) s/p nerve stimulator placement, HTN, HLD, GERD, morbid obesity, Hx Migraines, Anxiety, Depression, Hypothyroidism, and Zenker's Diverticulum who presented to [facility] for planned PE with planned left vocal cord evaluation secondary to ongoing paralysis with hoarse voice; however, Dr. Penaloza noted significant issues with attempting laryngoscopy with inability to inject secondary to significant anatomic variation reporting anatomy extremely anterior with general anesthetic administered and unfortunately following inability to wean patient off oxygen supplementation noting a drop on room air to 82 to 86% and improvement to 95% on 2 L nasal cannula with no reported dyspnea, chest pain, significant cough, recent fevers or chills. Patient did have evaluation in January with CT neck and chest at that time with evidence of pneumonia and treatment outpatient with preoperative repeat chest x-ray noted to be clear. Patient does report significant back discomfort, lumbar and thoracic currently secondary to prolonged OR positioning with her stimulator off, rating it 6 out of 10 however worse with any movement attempt. Work-up initiated by anesthesia and ENT included a repeat chest x-ray which demonstrated no acute cardiopulmonary findings. Given patient's ongoing hypoxia, the ENT requested patient be admitted for further evaluation. Received referral for CBSE d/t failed RN dysphagia screening. Patient's family reported to THORACIC MEDICINE PHYSICIAN during BSE etiology of vocal fold paralysis is unknown. Following BSE, she was recommended strict NPO with plans for reassessment 02/23/2022. She was re-evaluated by ST on 02/23/2022 and recommended for critical meds whole in applesauce to address chronic back pain with plans for MBSS prior to diet advancement. Current Diet Ordered: NPO - ok for critical meds in Mental Status: WNL Respiratory Status: Oxygenating on 2L/M nasal cannula - Penetration-Aspiration Scale Penetration-Aspiration Scale: OBJECTIVE ASSESSMENT OF SWALLOW FUNCTION (QUANTITATIVE ? PER TRIAL): PENETRATION / ASPIRATION SCALE (ESTRADA): 1 = does not enter airway 2 = enters airway/above vocal folds/ejected 3 = enters airway/above vocal folds/not ejected 4 = enters airway/contacts vocal folds/ejected 5 = enters airway/contacts vocal folds/not ejected 6 = enters airway/below vocal folds/ejected 7 = enters airway/below vocal folds/not ejected despite effort 8 = enters airway/below vocal folds/no effort VIDEOFLOROSCOPIC SCALE SCORE (ESTRADA): Grade I = aspiration of material that has penetrated into the laryngeal vestibule, intact cough reflex Grade II = aspiration < 10 % of the bolus, intact cough reflex Grade III = aspiration of < 10 % of the bolus, reduced cough reflex or aspiration of > 10 % of the bolus, intact cough reflex Grade IV = aspiration of > 10 % of the bolus, reduced cough reflex - Penetration-Aspiration Scale Score Thin Liquid via teaspoon Result: 1= does not enter airway Thin Liquid via teaspoon Trial 2 Result: 1= does not enter airway Thin Liquid via sequential sips from cup Result: 3= enters airways/above vocal folds/not ejected - pt elicited reflexive throat clear and re-swallow Thin Liquid via small single sip from cup Result: 4= enters airway/contacts vocal folds/ejected - pt elicited reflexive cough and re-swallow - cannot definitively rule out aspiration due to pt's body habitus. [place] Thick Liquid via small single sip from cup Result: 2= enter airway/above vocal folds/ejected - post prandial penetration of residue from previous trial observed before the swallow Honey Thick Liquid via small single sip from cup Result: 1= does not enter airway Pudding via teaspoon Result: 1= does not enter airway 1/2 Cookie Result: 1= does not enter airway Thin Liquid via single sip from straw Result: 2= enter airway/above vocal folds/ejected - pt elicited reflexive throat clear and re-swallow Thin Liquid via small single sip from cup Effortful swallow Result: 3= enters airways/above vocal folds/not ejected Thin Liquid via small single sip from cup Effortful swallow Trial 2 Result: 1= does not enter airway - Oral Phase Labial Seal: No Labial Escape Tongue Control During Bolus Hold: Posterior escape of less than half of bolus Bolus Preparation/Mastication: Slow prolonged chewing/mashing with complete recollection Bolus Transport/Lingual Motion: Slowed tongue motion Oral Residue: Residue collection on oral structures - Pharyngeal Phase Initiation of Pharyngeal Swallow: Bolus head in pyriforms Soft Palate Elevation: No bolus between soft palate and pharyngeal wall Laryngeal Elevation: Partial superior movement thyroid cart/partial apprx aryt- epig petiole Anterior Hyoid Excursion: Partial anterior movement Epiglottic Movement: Partial inversion Laryngeal Vestibule Closure at Height of Swallow: Incomplete; narrow column of air/contrast in laryngeal vestibule Pharyngeal Stripping Wave: Present - diminished Pharyngoesophageal Segment Opening: Parital distension and partial duration; parital obstruction of flow Tongue Base Retraction: Narrow column of contrast between tongue base & post. pharyngeal wall Pharyngeal Residue: Collection of residue within or on pharyngeal structures - Treatment Strategies Effects of treatment strategies attemped:: Decreased bolus size = effective. Effortful swallow = no impact observed. - Diagnosis/Impression Diagnosis: Mild-moderate oropharyngeal phase dysphagia (R13.12) Impression: The oral phase is primarily marked by... -Decreased bolus control with premature posterior loss of <1/2 of thin liquid bolus to the pyriforms prior to swallow onset. -Prolonged, but adequate mastication abilities. -Mild-moderate oral residues, which were observed to spill posteriorly to the pharynx and laryngeal vestibule after the swallow. The patient experienced pen etration of liquids after the swallow due to posterior spillage of oral residues. The pharyngeal phase is primarily marked by... -Mild delay initiating the swallow with thin liquids. -Decreased laryngeal elevation and anterior hyoid excursion resulting in decreased airway closure during the swallow, as well as decreased UES opening/duration. -Mildly decreased tongue base retraction with resulting collection of pharyngeal residues in the vallecula after the swallow. -Laryngeal penetration of large sip of thin liquids by cup & straw and nectar thick liquids via cup. Laryngeal penetration of thin liquids did not reliably eject from the laryngeal vestibule, although the patient did demonstrate reflexive cough and throat clear that cleared a majority of the penetrated c ontrast from the laryngeal vestibule. No aspiration observed during the study; however, the THORACIC MEDICINE PHYSICIAN could not definitively rule out aspiration due to pt's body habitus. - Recommendations Diet: Thin Liquids - Easy to Chew textures (IDDSI Level 7) Comment: Intermittent cough and re-swallow, especially if pt has a wet vocal quality Compensatory Strategies: Small Bites, Liquid by Teaspoon Only, Slow Rate, Multiple Swallows - Pt completes as needed, Sitting upright, Remain sitting upright for 30 minutes after PO intake Supervision: 1:1 Close Supervision Recommend Repeat Modified Barium Swallow: TBD Need for Skilled Speech Therapy Services: Yes Comment: Will recommend the patient for continued dysphagia therapy to address deficits in oropharyngeal swallow function. Will recommend the patient for oropharyngeal strengthening to improve lingual strength/coordination, laryngeal elevation, hyoid excursion, tongue base retraction, and pharyngeal contraction (lingual resistance exercises, Valarie, Kirill, CTAR). The patient would benefit from thorough education regarding diet recommendations and recommended compensatory strategies. At next level of care, would strongly consider the patient for implementation of Patel Free Water Protocol (FFWP) to encourage hydration and promote increased opportunities for swallowing throughout the day. Education Completed: 1. Described result of evaluation., 2. Pt understands evaluation & agrees with goals and treatment plan., 4. Family/caregivers understand evaluation & agree w/ goals & tx plan., 7. Pt requires further education on strategies & risks. - Status Active ST Patient: Active - Contact Information [facility] Speech Therapy:: Yvette Alvaerz M.A. [facility]ORAC[facility] MEDICINE PHYSICIAN Speech-Language Pathologist [facility] [address] [place] [address] [email or web address] 02/22/22 14:31
--- NOTE | 2022-02-22 13:38 | NURSING ---
off unit for swallow study at this time
[2022-02-22] MEDS: Gabapentin 300 MG Capsule PO (16:32)
[2022-02-22] MEDS: Atenolol 25 MG Tablet PO (21:29)
[2022-02-22] MEDS: Sertraline 50 MG Tablet PO (21:29)
[2022-02-23] VITALS (7 sets, daily range): BP systolic 152–175; BP diastolic 66–98; PULSE 63–73; RESP 18; TEMP 36.6–36.8; O2SAT 86–99
[2022-02-23 05:00] LABS: Absolute Lymphocyte Count 1.69 X10^3/uL (0.83-4.51); Absolute Neutrophil Count 4.3 X10^3/uL (2.0-7.7); Basophil# 0.02 X10^3/uL; Basophil% 0.3 % (0-1); Eosinophil# 0.24 X10^3/uL; Eosinophils% 3.5 % (0-5); Hematocrit 34.7 % (37-47); Hemoglobin 11.1 g/dL (12.0-15.0); Lymphocyte # 1.69 X10^3/ul (0.83-4.51); Lymphocyte % 24.8 % (19-41); Mean Corpuscular Hgb 29.8 pg (27.0-32.0); Monocyte# 0.56 X10^3/uL; Monocyte% 8.2 % (0-10); NRBC Flagged by Analyzer 0 % (0-5); Neutrophil # 4.27 X10^3/uL (2.7-7.7); Neutrophil % 62.8 % (47-70); Platelet Count 237 K/mm3 (150-450); RBC Distribution Width SD 47.5 fl (35.1-43.9); Red Blood Count 3.73 M/mm3 (4.2-5.4); White Blood Count 6.8 K/mm3 (4.4-11.0)
[2022-02-23 05:22] LABS: Anion Gap 5 (5-15); BUN 9 mg/dL (7-18); BUN/Creat Ratio 14.9 RATIO (10-20); Calcium,Total 8.8 mg/dL (8.5-10.1); Chloride 100 mmol/L (98-107); EST Glomerular Filtration Rate 101 mL/min (>60); Est Glom Filt Rate - Afr Amer 122 mL/min (>60); Estimated Creatinine Clearance 32.73 ml/min; Glucose 139 mg/dL (74-106); Potassium 3.1 mmol/L (3.5-5.1); Sodium Level 138 mmol/L (136-145)
[2022-02-23] MEDS: Levothyroxine 125 MCG Tablet PO (05:51)
[2022-02-23] MEDS: Potassium Chloride Oral Tablet 20 MEQ 40 MEQ PO (08:56)
[2022-02-23] MEDS: DULoxetine Hcl 60 MG Capsule PO (09:32)
[2022-02-23] MEDS: Furosemide 40 MG Tablet PO (09:32)
[2022-02-23] MEDS: Losartan Potassium 100 MG Tablet PO (09:32)
[2022-02-23] MEDS: Gabapentin 300 MG Capsule PO (09:32)
[2022-02-23] MEDS: Enoxaparin 40 MG/0.4 ML Syringe SC (09:33)
--- NOTE | 2022-02-23 10:59 | CASEMGMT ---
Addendum entered by Colleen Shipman 02/23/22 14:12: Pt accepted by [facility] and will start on Sunday. Pt was made aware of the availability of start date when option chosen and was agreable to this. Added to dc plan and reprinted for nurse. Addendum entered by Colleen Shipman 02/23/22 11:23: [employer] in to pt room, pt aware that she qualifies for home oxygen. Will set up through [employer]. Patient was provided a list of [facility] providers including quality and resource use data and consistent with the patient?s preferred geographic region, medical needs, and insurance network were provided from the [employer] Guide. Pt chose [facility]. Reviewed oxygen process for when at home and to call company for concentrator set up. TC bebeto Leblanc at [facility] to make referral, will await acceptance. Original Note: Noted pt qualifies for home oxygen. As discussed prior if pt qualifies for home O2 then she would like [facility]. Also made aware by ST that additional ST is recommended at home.
--- NOTE | 2022-02-23 11:47 | DS.PCM_ITS ---
Providers Date of Admission: 02/21/22 Date of Discharge: 02/23/22 Primary Care Physician: Dr. Alfred Mckay, DO Consultations 02/20/22 19:04 Consult: ENT Routine Consulting Provider: Nicho Wilkins Reason for Consult: Vocal cord paralysis EMERGENT Consult: No MD Notified: Yes Date Notified: 02/20/22 Time Notified: 18:07 Method of Notification: Verbal Reason For Visit: PRE-OP Diagnosis Discharge Diagnosis (1) Hypoxia: Status: Acute Code(s): R09.02 - Hypoxemia Plan #Hypoxia due to probable aspiration and effect of anesthesia * still on 2L of oxygen by nasal canula * Remains on 2 L of oxygen. Patient failed swallow evaluation and is now completely NPO. * Chest x-ray showed no acute cardiopulmonary process. * Titrate oxygen to maintain saturation above 90%. Breathing treatments with bronchodilators. * Encourage incentive spirometry use. Will need referral to pulmonology on outpatient basis to be assessed for sleep apnea. * #Chronic hoarseness due to left vocal cord paralysis * Was unable to have procedure done on her vocal cords due to extreme anterior anatomy. * Follow-up with ENT on outpatient basis. * failed dysphagia, though with all the instrumentation she had during the surgery, the dysphagia is to be expected * started on applesauce; advance diet slowly as per speech therapy * #Chronic pain syndrome: Has nerve stimulator in place. On duloxetine and gabapentin as well as oxycodone. #Hypertension: On atenolol and losartan as well as Lasix #Hypothyroidism: On Synthroid #Anxiety and depression: On Zoloft and duloxetine #Morbid obesity: * BMI is 41.8. * This will likely be contributing to possible CODY and obesity hypoventilation syndrome for which she will need follow-up with pulmonology on outpatient basis. DVT prophylaxis: Lovenox Medications at Discharge Home Medications cholecalciferol (vitamin D3) 50 mcg (2,000 unit) tablet (Vitamin D3) 4,000 unit PO DAILY 06/02/13 furosemide 40 mg tablet 40 mg PO DAILY FLUID 06/02/13 losartan 100 mg tablet (Cozaar) 100 mg PO DAILY 06/02/13 multivitamin with folic acid 400 mcg tablet (Thera) 1 tab PO DAILY 06/02/13 potassium citrate 10 mEq (1,080 mg) tablet,extended release (Urocit-K 10) 20 meq PO DAILY 06/02/13 atenolol 25 mg tablet (Tenormin) 25 mg PO QHS 07/30/20 cetirizine 10 mg tablet (Zyrtec) 10 mg PO DAILY ALLERGIES 10/28/20 cinnamon bark 500 mg capsule (Cinnamon) 1,000 mg PO DAILY SUPPLEMENT 10/28/20 gabapentin 300 mg capsule 300 mg PO BID NERVE PAIN 10/28/20 levothyroxine 112 mcg tablet 125 mcg PO DAILY THYROID 10/28/20 sertraline 50 mg tablet (Zoloft) 50 mg PO QHS DEPRESSION 10/28/20 acetaminophen 500 mg tablet 500 mg PO TID 09/01/21 duloxetine 30 mg capsule,delayed release 60 mg PO DAILY 10/31/21 oxycodone-acetaminophen 5 mg-325 mg tablet 1 tab PO TID PRN Pain 02/16/22 Hospital Course Operations None Procedures None Summary of Care Provided Minutes Spent on Discharge: 45 Hospital Course: Patient is an 81 y/o female wih an extensive PMH as outlined who presented to [facility] for planned left vocal cord evaluation secondary to ongoing vocal cord paralysis. This was done by ENT. However she had significant issues with attempted laryngoscopy with inability to inject the vocal cords secondary to significant anatomic radiation. She could not be weaned off of oxygen and she desaturated to 82 to 86%. She was placed on 2 L of oxygen. She was therefore admitted for ongoing hypoxia postop. Hypoxia was thought to be due to effect of anesthesia medications and also potential sleep apnea and hypoventilation syndrome. There was also concern for aspiration. She failed swallow evaluation though this was thought to likely be due to the fact that she had had extensive instrumentation of her vocal cords during the surgery by ENT. Patient was gradually started on a diet and tolerated it and did well. She was encouraged to use incentive spirometry. She felt better and was discharged home on 02/23/2022. She is to follow-up with her primary care doctor and ENT surgeon and was referred to pulmonology for testing on outpatient basis for sleep apnea. SHe qualified for 2L of oxygen by nasal canula. Patient seen and examined prior to discharge. She had no active complaints and had an uneventful diet. Review of systems otherwise negative. Labs and vitals reviewed. Home medication reviewed and reconciled. Physical Exam Const alert, oriented x3 and no apparent distress Constitutional Narrative: frail General Appearance: cooperative and comfortable Orientation / Consciousness: awake Exam Limitations: no limitations HEENT normocephalic, head/scalp atraumatic, hearing grossly normal bilaterally, moist oral mucous membranes and oropharynx normal Mouth: oral and palatal mucosa normal Eyes PERRL, EOMs intact bilaterally and conjunctivae normal Neck no lymphadenopathy, supple and no JVD Resp Resp Narrative: diminished breath sounds bibasally, bilateral crackles. On 2L of oxygen. Cardio regular rate, regular rhythm, S1 normal heart sound, S2 normal heart sound and no murmurs GI normal to inspection, nondistended, normoactive bowel sounds, soft to palpation, non-tender and non-distended Extremity normal to inspection and full ROM Skin no rashes or lesions noted Neuro oriented x3, CN's II-XII intact bilaterally, moves all extremities and no focal motor deficits Sensorium / Orientation: awake and alert Motor Exam: strength 5/5 throughout Psych affect normal Weight / BMI Weight Weight: 221 lb 12.56 oz Body Mass Index (BMI) 41.5 ABG / Lab / Microbiology Data Result Diagrams: 02/23/22 04:16 02/23/22 04:16 Laboratory: Laboratory Results - last 24 hr 02/23/22 04:16: WBC 6.8, RBC 3.73 L, Hgb 11.1 L, Hct 34.7 L, MCV 93.0, MCH 29.8, MCHC 32.0 D, RDW Std Deviation 47.5 H, RDW Coeff of Mary 14.0, Plt Count 237, MPV 10.0, Immature Gran % (Auto) 0.400, Neut % (Auto) 62.8, Lymph % (Auto) 24.8, [place] % (Auto) 8.2, Eos % (Auto) 3.5, Baso % (Auto) 0.3, Absolute Neuts (auto) 4.3, Absolute Lymphs (auto) 1.69, Nucleated RBC % 0 02/23/22 04:16: Sodium 138, Potassium 3.1 L, Chloride 100, Carbon Dioxide 33.0 H , Anion Gap 5, BUN 9, Creatinine 0.60, Estim Creat Clear Calc 32.73, Est GFR (MDRD) Af Amer 122, Est GFR (MDRD) Non-Af 101, BUN/Creatinine Ratio 14.9, Glucose 139 H, Calcium 8.8 Microbiology: Microbiology 02/21/22 09:49 Sputum, Expectorated/Coughed Gram Stain - Final 02/21/22 09:49 Sputum, Expectorated/Coughed Respiratory Culture - Final Mixed normal respiratory rufus. No Streptococcus pneumoniae, beta-hemolytic Streptococcus or Staphylococcus aureus isolated. 02/20/22 17:51 Interface Orders SARS-CoV-2 Antigen (Rapid) - Final D/C Instructions Discharge Diet: Low fat / Low cholesterol Weight Bearing Status: Weight bearing as tolerated Call your doctor if you observe: Fever of 101 or Higher, Shortness of breath, Dizziness, Swelling in the ankles, Chest pain and Increased palpitations (irregular heartbeat) When: 2 weeks Meaningful Use Info Meaningful Use Diagnoses (Choose all that apply): None applicable Discharge Plan Admission Admit Date/Time: 02/21/22 14:00 Primary Reason for Your Visit: hypoxia post op Attending Provider: Nicho Wilkins Primary Care Provider: Alfred Mckay Consulting Providers: Nicho Wilkins ; Carline Toth Instructions Patient Instructions: ED Dyspnea Discharge Orders/Prescriptions Prescriptions: Continued furosemide 40 MG tablet 40 mg PO DAILY Label Comments: WATER PILL potassium citrate [Urocit-K 10] 10 MEQ tablet extended release 20 meq PO DAILY Label Comments: SUPPLEMENTS losartan [Cozaar] 100 MG tablet 100 mg PO DAILY Label Comments: BLOOD PRESSURE cholecalciferol (vitamin D3) [Vitamin D3] 2,000 UNIT tablet 4,000 unit PO DAILY Label Comments: SUPPLEMENTS multivitamin with folic acid [Thera] 1 TABLET tablet 1 tab PO DAILY Label Comments: SUPPLEMENTS atenolol [Tenormin] 25 MG tablet 25 mg PO QHS cetirizine [Zyrtec] 10 mg Tablet 10 mg PO DAILY gabapentin 300 mg capsule 300 mg PO BID Label Comments: take 1 tablet by mouth every evening sertraline [Zoloft] 50 mg tablet 50 mg PO QHS Label Comments: take 1 tablet by mouth once daily levothyroxine 112 mcg tablet 125 mcg PO DAILY Label Comments: take 1 tablet by mouth once daily cinnamon bark [Cinnamon] 500 mg Capsule 1,000 mg PO DAILY acetaminophen 500 mg Tablet 500 mg PO TID duloxetine 30 mg Capsule,Delayed Release(Dr/Ec) 60 mg PO DAILY oxycodone-acetaminophen 5-325 mg Tablet 1 tab PO TID PRN (Reason: Pain) Referrals / Follow Up: Nicho Wilkins MD [Med Staff - Active Staff] - Within 1 Week Alfred Mckay DO [Primary Care Provider] - Within 2 Weeks Shahram Barrios DO [Med Staff - Active Staff] - Within 1 Month Disposition Disposition (needs filled in before D/C Order can be placed): Home, Self Care Charges/Coding Visit Charges Inpatient E&M: 32716 Disch Hosp
[2022-02-23] MEDS: Acetaminophen 325 MG Tablet 650 MG PO (14:54)
--- NOTE | 2022-02-24 13:54 | CASEMGMT ---
RN TITA made tc to pt home, pt dtr Sybil answered. She states that pt is doing well at home. She just finished eating lunch and pt pox was 91%. Pt is wearing oxygen with exertion. There are no smokers in the household. Discussed oxygen safety with pt dtr, she verbalized understanding. She is aware that HHC will be out on Sunday, she denies any further questions/concerns regarding pt care. She states family is switching on and off to stay with patient.
== END 2022-02-23 16:26 | disposition home health service (06) | DRG 206 ==
LOC: MS3 02-21 07:20 → SDC 02-21 07:54 → MS3 02-21 07:54
PROVIDERS: Family Medicine; Student in an Organized Health Care Education/Training Program; Admitting Provider Otolaryngology; PCP Preventive Medicine Occupational Medicine; Referring Provider Otolaryngology; Visit Provider Otolaryngology
PROC: 0CJS8ZZ Inspection of Larynx, Via Natural or Artificial Opening Endoscopic (ICD-10-PCS; CPT 31575; principal; 2022-02-20 12:15)
DX: R09.02 Hypoxemia (principal); E66.2 Morbid (severe) obesity with alveolar hypoventilation; Z68.41 Body mass index [BMI] 40.0-44.9, adult; J38.01 Paralysis of vocal cords and larynx, unilateral; E03.9 Hypothyroidism, unspecified; E78.00 Pure hypercholesterolemia, unspecified; I10 Essential (primary) hypertension; E78.5 Hyperlipidemia, unspecified; F41.9 Anxiety disorder, unspecified; G89.4 Chronic pain syndrome; Z66 Do not resuscitate; F32.A Depression, unspecified; T41.295A Adverse effect of other general anesthetics, initial encounter
CPT/HCPCS: 36415; 71045; 71046; 74230; 80048; 80053; 83880; 85025; 85027; 87070; 87205; 87811; 92526; 92610; 92611; 93005; 94640; 94762; 97116; 97162; 97166; 97530; 97535; 99251; J7030; J7120; A4216; G0463; J1940; J2405

== ENCOUNTER 2022-03-07 19:31 | Emergency (ER) | payer MEDICARE, SELFPAY ==
[2022-03-07 19:32] VITALS: BP 117/83; PULSE 83; RESP 18; TEMP 37.4; O2SAT 96; BMI 40.8
--- NOTE | 2022-03-07 20:19 | EKG12_ITS ---
Test Reason : RASH Blood Pressure : / mmHG Vent. Rate : 080 BPM Atrial Rate : 080 BPM P-R Int : 168 ms QRS Dur : 078 ms QT Int : 374 ms P-R-T Axes : 000 104 141 degrees QTc Int : 431 ms Normal sinus rhythm vs Ectopic Atrial Rhythm Rightward axis Low voltage QRS Poor R wave progression Consider limb lead misplacement Recommend Repeat ECG Confirmed by AMANDA LITTLE, VESTA ([id number]), editorial clerk MARVA BLACK ([id number]) on 03/09/2022 12:35:44 PM Referred By: HORACIO Confirmed By:VESTA PATEL MD
--- NOTE | 2022-03-07 20:22 | EX.ED.DYSGE1 ---
HPI History of Present Illness Chief Complaint: Rash Informant: patient and family Narrative Narrative: Patient presents with diffuse body rash and just not feeling well. She states she was started on clindamycin on . This was started because she has been having coughing. She brings up a little bit of yellow sputum. But she states this has been going on for several years. They started clindamycin to try to avoid aspiration. Part of this is because she had procedure on the vocal cord recently. The plan was originally to inject with a gel but they could not do the procedure due to poor visualization. But her voice has come back and things are doing better now. The clindamycin was started on . The rash and itch started on Sunday a bit but it was not bad. Today it got worse. Her last clindamycin was last night. Because the rash was worse this morning she did not take it. She does have itch. She did take a Benadryl about 3 or 4 hours ago. It is helped somewhat. No fevers at this time. No change in the cough. No urinary symptoms. No abdominal pain. She states she just does not feel her best. She does have history of allergies to many meds including many antibiotics. [facility] Medical History Anxiety Arthritis Back pain Gastric reflux High cholesterol History of edema History of irregular heartbeat History of pain when walking HTN (hypertension) Hyperlipidemia Injury of head and neck Migraine headache Non-smoker Ovarian cyst Post-menopausal Shortness of breath on exertion Spinal cord stimulator status Syncope Thyroid disease Walker as ambulation aid Wears glasses Home Medications cholecalciferol (vitamin D3) 50 mcg (2,000 unit) tablet (Vitamin D3) 4,000 unit PO DAILY 06/02/13 [History Last Taken 10/27/20] furosemide 40 mg tablet 40 mg PO DAILY FLUID 06/02/13 [History Last Taken 10/27/20] losartan 100 mg tablet (Cozaar) 100 mg PO DAILY 06/02/13 [History Last Taken 02/20/22 09:00] multivitamin with folic acid 400 mcg tablet (Thera) 1 tab PO DAILY 06/02/13 [History Last Taken 10/27/20] potassium citrate 10 mEq (1,080 mg) tablet,extended release (Urocit-K 10) 20 meq PO DAILY 06/02/13 [History Last Taken 10/28/20] atenolol 25 mg tablet (Tenormin) 25 mg PO QHS 07/30/20 [History Last Taken 02/20/22 09:00] cetirizine 10 mg tablet (Zyrtec) 10 mg PO DAILY ALLERGIES 10/28/20 [History Last Taken 10/28/20] cinnamon bark 500 mg capsule (Cinnamon) 1,000 mg PO DAILY SUPPLEMENT 10/28/20 [History Last Taken 10/27/20] gabapentin 300 mg capsule 300 mg PO BID NERVE PAIN 10/28/20 [History Last Taken 02/20/22 09:00] levothyroxine 112 mcg tablet 125 mcg PO DAILY THYROID 10/28/20 [History Last Taken 02/20/22 09:00] sertraline 50 mg tablet (Zoloft) 50 mg PO QHS DEPRESSION 10/28/20 [History Last Taken 10/27/20] acetaminophen 500 mg tablet 500 mg PO TID 09/01/21 [History Last Taken 02/20/22 09:00] duloxetine 30 mg capsule,delayed release 60 mg PO DAILY 10/31/21 [History Last Taken Unknown] oxycodone-acetaminophen 5 mg-325 mg tablet 1 tab PO TID PRN Pain 02/16/22 [History Last Taken Unknown] clindamycin HCl 300 mg capsule 300 mg PO Q6H 03/07/22 [History Last Taken 03/06/22 21:00] clindamycin HCl 300 mg capsule mg 03/07/22 [History Last Taken Unknown] prednisone 20 mg tablet 40 mg PO DAILY #8 tabs 03/07/22 [Rx Last Taken Unknown] Allergy/AdvReac Type Severity Reaction Status Date / Time codeine phosphate Allergy Severe Rash Verified 03/07/22 19:37 [From Tylenol-Codeine #3] diazepam [From Valium] Allergy Severe Rash Verified 03/07/22 19:37 amoxicillin trihydrate Allergy Rash Verified 03/07/22 19:37 [From Augmentin] ampicillin Allergy Rash Verified 03/07/22 19:37 cephalexin monohydrate Allergy Rash Verified 03/07/22 19:37 [From Keflex] chlorpheniramine maleate Allergy Rash Verified 03/07/22 19:37 [From Chlor-Trimeton] dexamethasone sod phosphate Allergy Other Verified 03/07/22 19:37 [From Decadron] levofloxacin [From Levaquin] Allergy Rash Verified 03/07/22 19:37 lorazepam [From Ativan] Allergy Rash Verified 03/07/22 19:37 Penicillins Allergy Rash Verified 03/07/22 19:37 potassium clavulanate Allergy Rash Verified 03/07/22 19:37 [From Augmentin] prochlorperazine edisylate AdvReac Severe Other Verified 03/07/22 19:37 [From Compazine] dexamethasone [From Decadron] AdvReac Other Verified 03/07/22 19:37 Family History Father Heart disease Mother Heart disease Diabetes Hypertension Surgical History History of appendectomy History of back surgery History of hysterectomy History of surgery History of Zenker's diverticulum removal Hx of cholecystectomy Hx of ovarian cystectomy Hx of surgical procedure Hx of tonsillectomy Social History household members: spouse and family Smoking Status: Never smoker alcohol intake: never substance use type: does not use ROS ROS ED Constitutional Constitutional ED: Reports other Details: Mild sense of malaise. ; Denies fever(s) or subjective Eyes Eyes: Denies change in vision ENT ENT ED: Denies rhinorrhea Cardiovascular Cardiovascular: Denies chest pain or palpitations Respiratory/Chest Respiratory/Chest: Reports cough and other Details: Chronic cough unchanged. ; Denies dyspnea Gastrointestinal Gastrointestinal: Denies abdominal pain, diarrhea, nausea or vomiting Genitourinary Genitourinary ED: Reports other Details: Chronic urinary mild incontinence but this is not new or different. ; Denies dysuria Musculoskeletal Musculoskeletal: Denies arthralgias or myalgias Integumentary Reports rash Neurologic Neurologic: Denies headache(s) Psychiatric Psychiatric: Reports anxiety Endocrine Endocrinology: Denies polydipsia or polyuria Hematologic/Lymphatic Hematologic/Lymphatic: Denies easy bleeding or easy bruising Allergic/Immunologic Allergic/Immunologic ED: Denies urticaria EXAM Physical Exam Const Vital Signs: 03/07/22 19:32 Temperature 99.3 F H Temperature Source Temporal Pulse Rate 83 Respiratory Rate 18 Blood Pressure 117/83 H Blood Pressure Mean 94 Pulse Ox 96 Oxygen Delivery Method Room Air Positive well nourished and well developed General Appearance ED: well developed and NAD HEENT Reports moist mucous membranes HEENT Narrative: No intraoral lesions. Eyes EOMs intact bilaterally General Eye ED: Negative for pale conjunctiva or scleral icterus Neck supple Chest Wall inspection of chest normal Resp normal respiratory effort and clear to auscultation bilaterally Resp Narrative: I do not hear any wheezes or rhonchi now. Evidently they have heard wheezes in the past but I am not hearing them now. Her saturations are also normal. Her breathing is easy and unlabored. Cardio regular rate and regular rhythm GI normal to inspection, nondistended, normoactive bowel sounds, non-tender and non-distended Back/Spine no CVA tenderness Extremity General Extremety ED: Negative for tenderness Neuro oriented x3 and no sensory deficits noted Sensorium / Orientation: alert; Negative for lethargic or stuporous Motor Exam: strength 5/5 throughout; Negative for general weakness Psych mental status grossly normal Skin Skin Narrative: Patient has diffuse erythematous rash. No vesicles. No purpura. No petechiae. This is somewhat match side to side making me suspicious this is likely related to the clindamycin. MDM MDM MDM Narrative Medical decision making narrative: Patient's chest x-ray shows what appears to be chronic findings. CBC is overall normal. Electrolytes look good. Glucose is minimally elevated. Her COVID was positive. This patient has several issues going on. 1 is that she has had a rash which I do think is secondary to clindamycin. We are stopping the clindamycin. Her doctor has written for doxycycline but we are going to hold this for a day or so to make sure her rash is improving. She has used prednisone for reactions before and we will use a short course of this. I discussed options about COVID. She is not vaccinated. She had COVID once before and went through it without much difficulty. She does not want to use Paxlovid. I explained that I think her onset of COVID is really today because today is when she had mild sensation of hot cold and some generalized malaise. She could still take this medication for several days if she changes her mind or symptoms. If she develops trouble breathing, vomiting or trouble eating or drinking or any other concerns she can return. Lab Data Attestation: I reviewed the patient's lab results. Labs: Laboratory Results - last 24 hr 03/07/22 03/07/22 20:56 20:56 WBC 10.5 RBC 4.33 Hgb 12.5 Hct 40.5 MCV 93.5 MCH 28.9 MCHC 30.9 L RDW Std Deviation 48.3 H RDW Coeff of Mary 14.1 Plt Count 281 MPV 10.4 Immature Gran % (Auto) 0.400 Neut % (Auto) 81.2 H Lymph % (Auto) 9.5 L [place] % (Auto) 5.6 Eos % (Auto) 3.1 Baso % (Auto) 0.2 Absolute Neuts (auto) 8.5 H Absolute Lymphs (auto) 1.00 Nucleated RBC % 0 Sodium 138 Potassium 4.3 Chloride 101 Carbon Dioxide 31.0 Anion Gap 6 BUN 19 H Creatinine 0.87 Estim Creat Clear Calc 37.62 Est GFR (MDRD) Af Amer 81 Est GFR (MDRD) Non-Af 67 BUN/Creatinine Ratio 21.9 H Glucose 149 H Calcium 9.5 Radiography Diagnostic Testing: Clinical Impression(s) from Imaging Studies Chest X-Ray 03/07/22 21:00 IMPRESSION: Elevated right hemidiaphragm and mild right basilar atelectasis or infiltrate Electronically Signed: Ramon Shah MD at 21:14 EDT , Chest x-ray looked at by me and read by radiology shows elevated right hemidiaphragm and some medial basilar atelectasis. However, I looked at old film from about 2 weeks ago and it looks similar. Discharge Plan Triage Chief Complaint: Rash Other Complaint: Fever ED Provider: Herber Hamilton Dx/Rx/DC Orders Clinical Impression: Allergy to antibiotic, COVID-19, Rash Instructions: Coronavirus Disease 2019 (COVID-19): Caring for Yourself or Others, ED ADVERSE DRUG REACTION Allergic Prescriptions: New prednisone 20 mg tablet 40 mg PO DAILY Qty: 8 0RF No Action furosemide 40 MG tablet 40 mg PO DAILY Label Comments: WATER PILL potassium citrate [Urocit-K 10] 10 MEQ tablet extended release 20 meq PO DAILY Label Comments: SUPPLEMENTS losartan [Cozaar] 100 MG tablet 100 mg PO DAILY Label Comments: BLOOD PRESSURE cholecalciferol (vitamin D3) [Vitamin D3] 2,000 UNIT tablet 4,000 unit PO DAILY Label Comments: SUPPLEMENTS multivitamin with folic acid [Thera] 1 TABLET tablet 1 tab PO DAILY Label Comments: SUPPLEMENTS atenolol [Tenormin] 25 MG tablet 25 mg PO QHS cetirizine [Zyrtec] 10 mg Tablet 10 mg PO DAILY gabapentin 300 mg capsule 300 mg PO BID Label Comments: take 1 tablet by mouth every evening sertraline [Zoloft] 50 mg tablet 50 mg PO QHS Label Comments: take 1 tablet by mouth once daily levothyroxine 112 mcg tablet 125 mcg PO DAILY Label Comments: take 1 tablet by mouth once daily cinnamon bark [Cinnamon] 500 mg Capsule 1,000 mg PO DAILY acetaminophen 500 mg Tablet 500 mg PO TID duloxetine 30 mg Capsule,Delayed Release(Dr/Ec) 60 mg PO DAILY oxycodone-acetaminophen 5-325 mg Tablet 1 tab PO TID PRN (Reason: Pain) clindamycin HCl 300 mg capsule 300 mg PO Q6H Label Comments: take 1 capsule by mouth every 6 hours 7 days clindamycin HCl 300 mg capsule Label Comments: take 1 capsule by mouth every 6 hours 7 days Primary Care Provider: Alfred Mckay Referrals: Alfred Mckay DO [Primary Care Provider] - 3-5 Days if not improving Disposition Disposition: Home, Self Care
[2022-03-07] MEDS: predniSONE 20 MG Tablet 40 MG PO (20:50)
--- NOTE | 2022-03-07 21:00 | RAD_ITS ---
STUDY: X-RAY CHEST REASON FOR EXAM: Female, 81 years old. cough TECHNIQUE: AP portable COMPARISON: None. FINDINGS: Elevated right hemidiaphragm and mild right lower lobe atelectasis or infiltrate.. There is no demonstrated pleural abnormality. Normal size heart. Normal mediastinum and eb. Normal visualized pulmonary arteries. Mildly calcified aortic arch and descending thoracic aorta. Dorsal spine demonstrates degenerative change. There is a spinal stimulator noted within the canal. Normal visualized ribs, clavicles, and shoulders. There is no demonstrated abnormality of the visualized soft tissue structures of the upper abdomen. RAD/Chest 1 View (Portable) IMPRESSION: Elevated right hemidiaphragm and mild right basilar atelectasis or infiltrate Electronically Signed: Ramon Shah MD at 21:14 EDT ,
[2022-03-07 21:07] LABS: Absolute Neutrophil Count 8.5 X10^3/uL (2.0-7.7); Basophil# 0.02 X10^3/uL; Basophil% 0.2 % (0-1); Eosinophil# 0.32 X10^3/uL; Eosinophils% 3.1 % (0-5); Hematocrit 40.5 % (37-47); Hemoglobin 12.5 g/dL (12.0-15.0); Lymphocyte % 9.5 % (19-41); Mean Corp Hgb Conc 30.9 g/dL (32-36); Mean Corpuscular Hgb 28.9 pg (27.0-32.0); Mean Corpuscular Volume 93.5 fL (81-99); Mean Platelet Vol. 10.4 fl (6.2-12.0); Monocyte# 0.59 X10^3/uL; Monocyte% 5.6 % (0-10); NRBC Flagged by Analyzer 0 % (0-5); Neutrophil # 8.51 X10^3/uL (2.7-7.7); Neutrophil % 81.2 % (47-70); Platelet Count 281 K/mm3 (150-450); RBC Distribution Width CV 14.1 % (11.6-14.6); RBC Distribution Width SD 48.3 fl (35.1-43.9); Red Blood Count 4.33 M/mm3 (4.2-5.4); White Blood Count 10.5 K/mm3 (4.4-11.0)
[2022-03-07 21:15] LABS: Anion Gap 6 (5-15); BUN 19 mg/dL (7-18); BUN/Creat Ratio 21.9 RATIO (10-20); Calcium,Total 9.5 mg/dL (8.5-10.1); Chloride 101 mmol/L (98-107); Creatinine, Serum 0.87 mg/dL (0.55-1.02); EST Glomerular Filtration Rate 67 mL/min (>60); Est Glom Filt Rate - Afr Amer 81 mL/min (>60); Estimated Creatinine Clearance 37.62 ml/min; Glucose 149 mg/dL (74-106); Potassium 4.3 mmol/L (3.5-5.1); Sodium Level 138 mmol/L (136-145)
[2022-03-07 22:29] VITALS: BP 151/63; PULSE 82; RESP 16; TEMP 37.7; O2SAT 95
== END 2022-03-07 22:40 | disposition home or self-care (01) ==
PROVIDERS: Emergency Provider Emergency Medicine; PCP Preventive Medicine Occupational Medicine; Visit Provider Emergency Medicine
DX: R21 Rash and other nonspecific skin eruption (principal); T36.8X5A Adverse effect of other systemic antibiotics, initial encounter; U07.1 COVID-19; R50.9 Fever, unspecified; I10 Essential (primary) hypertension; E78.5 Hyperlipidemia, unspecified; R05.3 Chronic cough; Z28.310 Unvaccinated for COVID-19
CPT/HCPCS: 71045; 80048; 85025; 87428; 93005; 99284; A4216

== ENCOUNTER 2022-06-26 12:40 | Day surgery (SDC) | payer MEDICARE, SELFPAY ==
[2022-06-26 13:40] VITALS: BP 180/72; PULSE 72; RESP 16; TEMP 36.8; O2SAT 94; BMI 39.9
[2022-06-26] MEDS: Lactated Ringers 1,000 ML 15 ML IV (13:58)
--- NOTE | 2022-06-26 14:52 | RAD_ITS ---
PROCEDURE: Caudal epidural steroid injection. DATE OF EXAMINATION: 06/26/2022. INDICATION: Female, 81 years old. Low back pain. FLUOROSCOPY TIME (if supplied): (6.5 seconds) minutes/seconds. 2 images were submitted. RAD/Fluor Guidance for Spine Inj IMPRESSION: Intraoperative imaging provided for caudal epidural steroid injection. Electronically Signed: Catrachito Boyd MD at 14:48 EST ,
[2022-06-26] MEDS: MethylPREDNISolone Acetate 80 MG/ML Vial (14:53)
[2022-06-26] MEDS: Lidocaine 1% (30 ml sdv) 30 ML Vial (14:54)
[2022-06-26 15:05] VITALS: BP 116/79; BP 180/72; PULSE 67; RESP 67; TEMP 36.6; O2SAT 97
--- NOTE | 2022-06-26 15:09 | OP.PCM_ITS ---
Report of Operation Date of Procedure: 06/26/22 Pre-Operative Diagnosis: Lumbosacral radiculopathy, lumbosacral degenerative di sc disease, lumbosacral spinal stenosis Post-Operative Diagnosis: Lumbosacral radiculopathy, lumbosacral degenerative disc disease, lumbosacral spinal stenosis Surgery/Procedure Performed:: Caudal epidural steroid injection under fluoroscopic guidance Type of Anesthesia: MAC Estimated Blood Loss (mL): Minimal Description of Procedure: DESCRIPTION OF PROCEDURE: History and physical of today was reviewed. Risks and benefits of the procedure were explained. The patient understood and agreed to proceed. Informed consent was obtained. IV inserted per routine protocol. The patient was taken to the operating room and placed in the prone position with a pillow positioned underneath the abdomen. The lower back and tailbone area was prepped and draped in a sterile fashion using iodine x3. Under fluoroscopy guidance on a lateral view, the caudal space was identified. The skin and subcutaneous tissue was anesthetized with approximately 3 mL of 1% lidocaine using a 25-gauge regular needle. Under direct visualization with fluoroscopy, using a 22-gauge 3-1/2-inch spinal needle, the needle was advanced via the skin through the sacral hiatus. The tip of the needle was passed through the sacrococcygeal ligament and advanced to approximately S4 area. After negative aspiration of blood or CSF, a total of 3 mL of contrast was injected to confirm correct placement of the needle as well as cephalad spread. The spread was followed to approximately L5 area. After confirmation on AP as well as lateral view and repeated negative aspiration, a total of 15 mL of preservative-free 0.125% Marcaine with 80 mg of Depo-Medrol was injected easily. The needle was then removed intact. The patient experienced no sign or symptoms of intrathecal or intravascular injection. The patient experienced no paresthesia. The procedure was completed without any apparent difficulty or any complications. The patient appeared to tolerate it well. ASSESSMENT AND PLAN: This is a 81-year-old female with lumbosacral radiculopathy, lumbosacral degenerative disc disease, lumbosacral spinal stenosis status post caudal epidural steroid injection, patient will continue her current medications, patient will follow in approximately 2 weeks for reevaluation. Complications None
[2022-06-26 15:10] VITALS: BP 132/71; BP 180/72; PULSE 67; RESP 16; O2SAT 95
[2022-06-26 15:15] VITALS: BP 137/72; BP 180/72; PULSE 65; RESP 16; O2SAT 94
[2022-06-26 15:20] VITALS: BP 180/72; BP 97/83; PULSE 66; RESP 16; O2SAT 94
[2022-06-26 15:25] VITALS: BP 128/81; BP 180/72; PULSE 67; RESP 16; TEMP 36.8; O2SAT 94
[2022-06-26] MEDS: Gabapentin 600 MG Tablet 300 MG PO (16:20)
== END 2022-06-26 16:34 | disposition home or self-care (01) ==
LOC: SDC 12:43 → AC 12:49
PROVIDERS: PCP Preventive Medicine Occupational Medicine; Visit Provider Anesthesiology Pain Medicine
PROC: 3E0S3BZ Introduction of Anesthetic Agent into Epidural Space, Percutaneous Approach (ICD-10-PCS; CPT 62282; principal; 2022-06-26 14:15)
DX: M51.17 Intervertebral disc disorders with radiculopathy, lumbosacral region (principal); M48.07 Spinal stenosis, lumbosacral region; I10 Essential (primary) hypertension; K21.9 Gastro-esophageal reflux disease without esophagitis; E78.00 Pure hypercholesterolemia, unspecified; Z79.899 Other long term (current) drug therapy
CPT/HCPCS: 62323; 01992; 64483; 77003; J7120

== ENCOUNTER 2022-09-18 07:29 | Day surgery (SDC) | payer MEDICARE, SELFPAY ==
[2022-09-18 07:56] VITALS: BP 149/71; PULSE 57; RESP 18; TEMP 36.9; O2SAT 95; BMI 40.8
[2022-09-18] MEDS: Lactated Ringers 1,000 ML 15 ML IV (08:09)
--- NOTE | 2022-09-18 08:45 | RAD_ITS ---
INDICATION: MEDIAL BRANCH NERVE BLOCK, L4-S1,RIGHT EXAMINATION/TECHNIQUE: X-RAY - XR Spine Lumbar 2 or 3 Views COMPARISON: None. RAD/Lumbar Spine 2 or 3 Views IMPRESSION: 4 fluoroscopic images of multilevel needle placement, presumably for nerve block. Electronically Signed: Armand Espinoza MD at 19:12 EDT ,
[2022-09-18] MEDS: Lidocaine 1% (5 ml sdv) 5 ML Vial (08:53)
[2022-09-18] MEDS: MethylPREDNISolone Acetate 80 MG/ML Vial (08:54)
[2022-09-18 09:00] VITALS: BP 119/76; BP 149/71; PULSE 55; RESP 16; TEMP 36.4; O2SAT 94
[2022-09-18 09:05] VITALS: BP 134/51; BP 149/71; PULSE 55; RESP 16; O2SAT 94
[2022-09-18 09:10] VITALS: BP 126/51; BP 149/71; PULSE 56; RESP 16; O2SAT 94
--- NOTE | 2022-09-18 09:10 | OP.PCM_ITS ---
Report of Operation Date of Procedure: 09/18/22 Description of Surgical Findings:: PREOPERATIVE DIAGNOSIS: Lumbosacral spondylosis, lumbosacral degenerative disc disease, lumbar facet arthropathy POSTOPERATIVE DIAGNOSIS: Lumbosacral spondylosis, lumbosacral degenerative disc disease, lumbar facet arthropathy PROCEDURE PERFORMED: Right-sided lumbar medial branch block at L4, L5, and S1. ANESTHESIA: MAC. BLOOD LOSS: Minimal. COMPLICATIONS: None. DESCRIPTION OF PROCEDURE: History and physical of today was reviewed. Risks and benefits of the procedure were explained. The patient understood and agreed to proceed. Informed consent was obtained. IV inserted per routine protocol. The patient was taken to the operating room and placed in the prone position with a pillow positioned underneath the abdomen. The right side of her lower back was prepped and draped in a sterile fashion using iodine x3. Under fluoroscopy on oblique view, the L3 through S1 vertebral bodies were visualized. The skin and subcutaneous tissue was anesthetized with approximately 5 mL of 1% lidocaine using a 25-gauge regular needle. Under direct visualization with fluoroscopy, at approximately 25-degree angle starting on the right L3, ending on the right S1, passing through the L4 and L5, using a 22-gauge 3-1/2-inch spinal needle, the needle was advanced via the skin. The tip of the needle was maneuvered and directed towards the superior medial gutter of the transverse process at the vicinity of the medial branch. Once tip of the needle was in contact with the bone, the needle was pulled approximately 2 mm off the bone. After negative aspiration of blood or CSF and confirmation on AP as well as oblique view, a total of 8 mL of preservative-free 0.25% Marcaine with 80 mg of Depo-Medrol was injected in divided doses between those four levels. The needles were then removed intact. The patient experienced no sign or symptoms of intrathecal or intravascular injection. The patient experienced no paresthesia. The procedure was completed without any apparent difficulty or any complications. The patient appeared to tolerate it well. ASSESSMENT AND PLAN: This is an 81-year-old female with lumbosacral spondylosis, lumbosacral degenerative disc disease, lumbar facet arthropathy status post right-sided lumbar medial branch block at L4-S1, patient will continue her current medicat ions, patient will follow in approximately 2 weeks for reevaluation.
[2022-09-18 09:13] VITALS: BP 121/52; BP 149/71; PULSE 56; RESP 16; TEMP 36.2; O2SAT 94
[2022-09-18 09:32] VITALS: BP 149/71
== END 2022-09-18 09:45 | disposition home or self-care (01) ==
LOC: SDC 07:29 → AC 07:33
PROVIDERS: PCP Preventive Medicine Occupational Medicine; Referring Provider Anesthesiology Pain Medicine; Visit Provider Anesthesiology Pain Medicine
PROC: 3E0S3BZ Introduction of Anesthetic Agent into Epidural Space, Percutaneous Approach (ICD-10-PCS; CPT 62322; principal; 2022-09-18 08:45)
DX: M47.27 Other spondylosis with radiculopathy, lumbosacral region (principal); M46.1 Sacroiliitis, not elsewhere classified; M51.37 Other intervertebral disc degeneration, lumbosacral region; M96.1 Postlaminectomy syndrome, not elsewhere classified; M48.07 Spinal stenosis, lumbosacral region; M16.11 Unilateral primary osteoarthritis, right hip; G89.29 Other chronic pain; I10 Essential (primary) hypertension; E78.00 Pure hypercholesterolemia, unspecified; E03.9 Hypothyroidism, unspecified; Z79.899 Other long term (current) drug therapy
CPT/HCPCS: 64493; 64494; 01992; 64483; 72100; J7120

== ENCOUNTER → 2022-10-18 | Outpatient (CLI) | payer MEDICARE, SELFPAY ==
--- NOTE | 2022-10-18 07:14 | MRI_ITS ---
STUDY: MRI LUMBAR SPINE WITHOUT CONTRAST REASON FOR EXAM: Female, 81 years old. LOSS OF BOWEL CONTROL TECHNIQUE: Standardized fat and water weighted pulse sequences were obtained in the sagittal and axial planes. COMPARISON: MRI lumbar spine without contrast 10/28/2020. Lumbar spine radiographs 09/18/2022. FINDINGS: T10-T11, T11-T12 and T12-L1: (Sagittal only). Normal endplates. Normal disc height, hydration and morphology. No ventral extradural defect. Normal central canal and bilateral intervertebral neural foramina. Minimal irregularity in the dorsal lateral extradural space at T10-T11 and above are presumably related to dorsal epidural wire catheters for pain control. Normal lumbar lordosis. There is no substantial scoliosis. Normal conus medullaris that terminates at the T12-L1 disc space level. L1-2: Normal endplates. Normal disc height, hydration and morphology. Normal bilateral facet joints. Normal central canal and bilateral lateral recesses. Normal bilateral intervertebral neural foramina. Dorsal epidural catheter entering the dorsal epidural space and extending cephalad. L2-3: Modic type II degenerative vertebral marrow fat infiltration is underneath the vertebral endplates. Moderate disc space height narrowing. Mild degenerative retrolisthesis of L2 on L3. Prominent ventral extradural defect due to bone spur. Prominent dorsal epidural lipoma. Mild asymmetric degenerative facet arthropathy. Moderately pronounced central canal stenosis with an AP canal diameter of 6 mm. This is unchanged. Normal bilateral lateral recesses. Mild to moderate stenosis of the left intervertebral neural foramen and mild stenosis of right intervertebral neural foramen are unchanged. L3-4: Modic type II degenerative vertebral marrow fat infiltration underneath the vertebral endplates. Moderate disc space height narrowing. Mild ventral extradural defect due to bone spurs. Prominent dorsal epidural lipomatosis. Mild bilateral degenerative facet arthropathy. Pronounced central canal stenosis with an AP canal diameter of 4 mm is unchanged. Normal bilateral lateral recesses. Moderate stenosis of the left intervertebral neural foramen, previously mild. Normal right intervertebral neural foramen. L4-5: Normal endplates. Mild disc space height narrowing. Pedicular screws and rods causing signal distortion artifacts. Normal central canal and bilateral lateral recesses. Moderate stenosis of the left intervertebral neural foramen is unchanged. Normal right intervertebral neural foramen. L5-S1: Disc implant inside the disc space. L5 pedicular screws and rods causing signal distortion artifacts. Normal central canal and bilateral lateral recesses. Limited visualization of the bilateral intervertebral neural foramina due to signal distortion artifacts coming from pedicular screws. Normal visualized sacral ala. Normal visualized paraspinous soft tissue structures. MRI/Spine Lumbar (Routine) IMPRESSION: 1. Pronounced central canal stenosis at L3-L4 disc space level with an AP canal diameter of 4 mm is unchanged. Moderate stenosis of left intervertebral neural foramen, previously mild. 2. Moderately pronounced central canal stenosis at L2-L3 disc space level with an AP canal diameter of 6 mm, mild degenerative retrolisthesis of L2 on L3, mild to moderate stenosis of the left intervertebral neural foramen and mild stenosis of the right intervertebral neural foramen. This level is unchanged. 3. Suboptimal visualization of the bilateral L5-S1 intervertebral neural foramina due to signal distortion artifacts coming from pedicular screws. 4. Mild irregularity in the dorsal epidural space at the T10-T11 disc space level and above secondary to dorsal epidural catheters. Electronically Signed: Alex Locke MD at 9:33 EDT ,
== END | disposition home or self-care (01) ==
PROVIDERS: PCP Preventive Medicine Occupational Medicine; Referring Provider Anesthesiology Pain Medicine; Visit Provider Anesthesiology Pain Medicine
DX: M96.1 Postlaminectomy syndrome, not elsewhere classified (principal)
CPT/HCPCS: 72148

== ENCOUNTER 2023-01-03 10:26 | Emergency (ER) | payer MEDICARE, SELFPAY ==
[2023-01-03 10:32] VITALS: BP 203/78; PULSE 110; RESP 22; TEMP 36.6; O2SAT 98
--- NOTE | 2023-01-03 11:03 | ED.VIS.BACK ---
HPI History of Present Illness Chief Complaint: Back Narrative Narrative: 82-year-old female with chronic back pain. Patient states over the last week and a half its been a little bit worse. She is on oxycodone prescribed by Dr. Arriola. She saw his DRILL INSTRUCTOR today and it sounds like they discussed changing her oxycodone to Dilaudid but the patient was concerned about changing medications due to her having many allergies. She not specifically allergic to morphine or Dilaudid. She does not believe she is ever had any. Patient states that the nurse practitioner said that she can come to the ER for pain or she can try switching her meds. Patient with no loss of bladder or bowel control. No saddle anesthesia/paresthesia. Patient ambulatory at home although she states has been down for the last week. She states she has been able to get up and go to the bathroom. She been able to get up and eat and drink. Otherwise she is laying flat on the bed flat on the couch. Denies any direct trauma. Patient does have a history of spinal stimulator which was implanted. [facility] Medical History Anxiety Arthritis Back pain Gastric reflux High cholesterol History of edema History of irregular heartbeat History of pain when walking HTN (hypertension) Hyperlipidemia Injury of head and neck Migraine headache Non-smoker Ovarian cyst Post-menopausal Shortness of breath on exertion Spinal cord stimulator status Syncope Thyroid disease Walker as ambulation aid Wears glasses Home Medications cholecalciferol (vitamin D3) 50 mcg (2,000 unit) tablet (Vitamin D3) 4,000 unit PO DAILY 06/02/13 [History Last Taken 10/27/20] furosemide 40 mg tablet 40 mg PO DAILY FLUID 06/02/13 [History Last Taken 10/27/20] losartan 100 mg tablet (Cozaar) 100 mg PO DAILY 06/02/13 [History Last Taken 09/18/22] multivitamin with folic acid 400 mcg tablet (Thera) 1 tab PO DAILY 06/02/13 [History Last Taken 10/27/20] potassium citrate 10 mEq (1,080 mg) tablet,extended release (Urocit-K 10) 20 meq PO DAILY 06/02/13 [History Last Taken 10/28/20] atenolol 25 mg tablet (Tenormin) 25 mg PO QHS 07/30/20 [History Last Taken 02/20/22 09:00] cetirizine 10 mg tablet (Zyrtec) 10 mg PO DAILY ALLERGIES 10/28/20 [History Last Taken 10/28/20] cinnamon bark 500 mg capsule (Cinnamon) 1,000 mg PO DAILY SUPPLEMENT 10/28/20 [History Last Taken 10/27/20] gabapentin 300 mg capsule 300 mg PO BID NERVE PAIN 10/28/20 [History Last Taken 02/20/22 09:00] levothyroxine 112 mcg tablet 125 mcg PO DAILY THYROID 10/28/20 [History Last Taken 09/18/22] sertraline 50 mg tablet (Zoloft) 50 mg PO QHS DEPRESSION 10/28/20 [History Last Taken 10/27/20] acetaminophen 500 mg tablet 500 mg PO BID 09/01/21 [History Last Taken 02/20/22 09:00] duloxetine 30 mg capsule,delayed release 60 mg PO DAILY 10/31/21 [History Last Taken Unknown] hydrocodone-acetaminophen 5-325mg 5mg-325mg 1 tab PO Q8H PRN Pain 06/26/22 [History Last Taken Unknown] Allergy/AdvReac Type Severity Reaction Status Date / Time codeine phosphate Allergy Severe Rash Verified 01/03/23 10:32 [From Tylenol-Codeine #3] diazepam [From Valium] Allergy Severe Rash Verified 01/03/23 10:32 amoxicillin trihydrate Allergy Rash Verified 01/03/23 10:32 [From Augmentin] ampicillin Allergy Rash Verified 01/03/23 10:32 cephalexin monohydrate Allergy Rash Verified 01/03/23 10:32 [From Keflex] chlorpheniramine maleate Allergy Rash Verified 01/03/23 10:32 [From Chlor-Trimeton] clindamycin Allergy Rash Verified 01/03/23 10:32 dexamethasone sod phosphate Allergy Other Verified 01/03/23 10:32 [From Decadron] levofloxacin [From Levaquin] Allergy Rash Verified 01/03/23 10:32 lorazepam [From Ativan] Allergy Rash Verified 01/03/23 10:32 Penicillins Allergy Rash Verified 01/03/23 10:32 potassium clavulanate Allergy Rash Verified 01/03/23 10:32 [From Augmentin] prochlorperazine edisylate AdvReac Severe Other Verified 01/03/23 10:32 [From Compazine] dexamethasone [From Decadron] AdvReac Other Verified 01/03/23 10:32 prochlorperazine AdvReac MUSCLE Verified 01/03/23 10:32 [From Compazine] AUGMENTIN Allergy Rash Uncoded 01/03/23 10:32 Family History Father Heart disease Mother Heart disease Diabetes Hypertension Surgical History History of appendectomy History of back surgery History of hysterectomy History of surgery History of Zenker's diverticulum removal Hx of cholecystectomy Hx of ovarian cystectomy Hx of surgical procedure Hx of tonsillectomy Social History household members: spouse and family Smoking Status: Never smoker alcohol intake: never substance use type: does not use ROS ROS ED Constitutional Constitutional ED: Denies chills, fever(s) or sweats Eyes Eyes: Denies blurry vision or change in vision ENT ENT ED: Denies ear pain or sore throat Cardiovascular Cardiovascular: Denies chest pain, palpitations or racing heartbeat Respiratory/Chest Respiratory/Chest: Denies cough, dyspnea or sputum Gastrointestinal Gastrointestinal: Denies abdominal pain, constipation, diarrhea, nausea or vomiting Genitourinary Genitourinary ED: Denies dysuria, hematuria or urinary frequency Musculoskeletal Musculoskeletal: Reports back pain; Denies arthralgias, myalgias or neck pain Integumentary Denies abscess, Abrasions or rash Neurologic Neurologic: Denies headache(s), paresthesias or weakness Psychiatric Psychiatric: Denies anxiety, depression, suicidal ideation or suicidal thoughts Endocrine Endocrinology: Denies polydipsia or polyuria EXAM Physical Exam Const Vital Signs: 01/03/23 10:32 Temperature 98 F Temperature Source Temporal Pulse Rate 110 H Respiratory Rate 22 H Blood Pressure 203/78 H Blood Pressure Mean 119 Pulse Ox 98 Oxygen Delivery Method Room Air Positive well nourished General Appearance ED: NAD HEENT Reports moist mucous membranes Eyes PERRL and EOMs intact bilaterally Neck no lymphadenopathy Resp normal respiratory effort Cardio regular rate and regular rhythm Back/Spine Back/Spine Narrative: Tenderness palpation lumbar spine and sacrum. No obvious deformity or step-offs. No rashes. No bruising Neuro oriented x3 and no sensory deficits noted Sensorium / Orientation: alert Motor Exam: strength 5/5 throughout Skin no rashes or lesions noted MDM MDM MDM Narrative Medical decision making narrative: Patient with acute on chronic back. No signs signs of cauda equina syndrome. Patient concerned because she has never had Dilaudid and she is concerned to have an allergy to it. We will give her 4 mg of Zofran and IM shot of Dilaudid 0.5 mg to see if this can ease her pain. I will obtain an x-ray of the lumbar spine as well. Patient states that she is not allergic prednisone. We will give her 60 mg of this as well. Patient tolerated the meds well. No allergic reactions noted. Spoke with the nurse practitioner on-call for Dr. Arriola and she will call her in some more pain medicine including Dilaudid. X-rays of lumbar spine on my interpretation no acute process. Patient to make follow-up with her surgeon next week. Return precautions discussed. Impression: 1. Acute exacerbation of chronic low back pain Radiography Diagnostic Testing: Clinical Impression(s) from Imaging Studies Lumbar Spine X-Ray 01/03/23 11:15 IMPRESSION: Degenerative changes of the spine, as detailed above. Prior laminectomy and fusion at the L4-L5 level. Grade 1 anterior listhesis of L4 on L5. Electronically Signed: Catrachito Boyd MD at 11:54 EDT , Discharge Plan Triage Chief Complaint: Back ED Provider: Jamal Gomez Dx/Rx/DC Orders Instructions: ED Back Pain (Acute or Chronic) Prescriptions: No Action furosemide 40 MG tablet 40 mg PO DAILY Patient Comments: WATER PILL potassium citrate [Urocit-K 10] 10 MEQ tablet extended release 20 meq PO DAILY Patient Comments: SUPPLEMENTS losartan [Cozaar] 100 MG tablet 100 mg PO DAILY Patient Comments: BLOOD PRESSURE cholecalciferol (vitamin D3) [Vitamin D3] 2,000 UNIT tablet 4,000 unit PO DAILY Patient Comments: SUPPLEMENTS multivitamin with folic acid [Thera] 1 TABLET tablet 1 tab PO DAILY Patient Comments: SUPPLEMENTS atenolol [Tenormin] 25 MG tablet 25 mg PO QHS cetirizine [Zyrtec] 10 mg Tablet 10 mg PO DAILY gabapentin 300 mg capsule 300 mg PO BID Patient Comments: take 1 tablet by mouth every evening sertraline [Zoloft] 50 mg tablet 50 mg PO QHS Patient Comments: take 1 tablet by mouth once daily levothyroxine 112 mcg tablet 125 mcg PO DAILY Patient Comments: take 1 tablet by mouth once daily cinnamon bark [Cinnamon] 500 mg Capsule 1,000 mg PO DAILY acetaminophen 500 mg Tablet 500 mg PO BID duloxetine 30 mg Capsule,Delayed Release(Dr/Ec) 60 mg PO DAILY hydrocodone-acetaminophen 5-325 mg Tablet 1 tab PO Q8H PRN (Reason: Pain) Primary Care Provider: Alfred Mckay Referrals: Ramon Kulkarni MD [Med Staff - Active Staff] - As Needed Alfred Mckay DO [Primary Care Provider] - Disposition Disposition: Home, Self Care
[2023-01-03] MEDS: HYDROmorphone 0.5 MG/0.5 ML SYRINGE IM (11:08)
[2023-01-03] MEDS: Ondansetron ODT 4 MG Tablet PO (11:08)
[2023-01-03] MEDS: predniSONE 20 MG Tablet 60 MG PO (11:08)
--- NOTE | 2023-01-03 11:15 | RAD_ITS ---
STUDY: X-RAY - LUMBAR SPINE REASON FOR EXAM: Female, 82 years old. Chronic low back pain. TECHNIQUE: 2 view(s) of the lumbar spine were obtained. COMPARISON: None FINDINGS: There is an exaggerated lumbar lordosis. There is no substantial scoliosis. Grade 1 anterolisthesis of L4 on L5. There is multilevel endplate spondylosis of the lumbar vertebrae. There is multi-level degenerative disc disease with multi-level disc space narrowing. The patient is status post laminectomy and fusion at the L4-L5 level. The spinal cord stimulator device is seen with the tip of the electrodes at T7-T8 level. There is atherosclerotic calcification of the abdominal aorta without a demonstrated aneurysm. RAD/Lumbar Spine 2 or 3 Views IMPRESSION: Degenerative changes of the spine, as detailed above. Prior laminectomy and fusion at the L4-L5 level. Grade 1 anterior listhesis of L4 on L5. Electronically Signed: Catrachito Boyd MD at 11:54 EDT ,
== END 2023-01-03 12:26 | disposition home or self-care (01) ==
PROVIDERS: Emergency Provider Student in an Organized Health Care Education/Training Program; PCP Preventive Medicine Occupational Medicine; Visit Provider Student in an Organized Health Care Education/Training Program
DX: M54.50 Low back pain, unspecified (principal); E78.00 Pure hypercholesterolemia, unspecified; I10 Essential (primary) hypertension; G89.29 Other chronic pain
CPT/HCPCS: 72100; 96372; 99282

== ENCOUNTER 2023-02-19 10:21 | Day surgery (SDC) | payer MEDICARE, SELFPAY ==
[2023-02-19] VITALS (7 sets, daily range): BP systolic 111–154; BP diastolic 59–76; PULSE 62–69; RESP 16–18; TEMP 36.3–36.8; O2SAT 95–100; BMI 40.9
--- NOTE | 2023-02-19 11:00 | RAD_ITS ---
PROCEDURE: Caudal injection. DATE OF EXAMINATION: February 19, 2023. INDICATION: Female, 82 years old. Chronic low back pain. FLUOROSCOPY TIME (if supplied): (11 seconds) minutes/seconds. 7.36 mGy. 2 images were obtained. RAD/Fluor Guidance for Spine Inj IMPRESSION: Intraoperative imaging provided for caudal injection. Electronically Signed: Catrachito Boyd MD at 14:38 EDT ,
[2023-02-19] MEDS: Lactated Ringers 1,000 ML 15 ML IV (11:14)
[2023-02-19] MEDS: Lidocaine 1% (5 ml sdv) 5 ML Vial (12:02)
[2023-02-19] MEDS: MethylPREDNISolone Acetate 80 MG/ML Vial (12:03)
[2023-02-19] MEDS: 0.9% Normal Saline (Pres. free 10 ML Vial (12:03)
--- NOTE | 2023-02-19 12:12 | OP.PCM_ITS ---
Report of Operation Date of Procedure: 02/19/23 Pre-Operative Diagnosis: Lumbosacral radiculopathy, lumbosacral degenerative di sc disease, lumbosacral spinal stenosis Post-Operative Diagnosis: Lumbosacral radiculopathy, lumbosacral degenerative disc disease, lumbosacral spinal stenosis Surgery/Procedure Performed:: Diagnostic/therapeutic caudal epidural steroid injection under fluoroscopic guidance Type of Anesthesia: MAC Estimated Blood Loss (mL): Minimal Description of Procedure: DESCRIPTION OF PROCEDURE: History and physical of today was reviewed. Risks and benefits of the procedure were explained. The patient understood and agreed to proceed. Informed consent was obtained. IV inserted per routine protocol. The patient was taken to the operating room and placed in the prone position with a pillow positioned underneath the abdomen. The lower back and tailbone area was prepped and draped in a sterile fashion using iodine x3. Under fluoroscopy guidance on a lateral view, the caudal space was identified. The skin and subcutaneous tissue was anesthetized with approximately 3 mL of 1% lidocaine using a 25-gauge regular needle. Under direct visualization with fluoroscopy, using a 22-gauge 3-1/2-inch spinal needle, the needle was advanced via the skin through the sacral hiatus. The tip of the needle was passed through the sacrococcygeal ligament and advanced to approximately S4 area. After negative aspiration of blood or CSF, a total of 3 mL of contrast was injected to confirm correct placement of the needle as well as cephalad spread. The spread was followed to approximately L5 area. After confirmation on AP as well as lateral view and repeated negative aspiration, a total of 15 mL of preservative-free 0.125% Marcaine with 80 mg of Depo-Medrol was injected easily. The needle was then removed intact. The patient experienced no sign or symptoms of intrathecal or intravascular injection. The patient experienced no paresthesia. The procedure was completed without any apparent difficulty or any complications. The patient appeared to tolerate it well. ASSESSMENT AND PLAN: This is an 82 -year-old female with lumbosacral radiculopathy, lumbosacral degenerative disc disease, lumbosacral spinal stenosis status post diagnostic/therapeutic caudal epidural steroid injection, patient will continue her current medications, patient will follow in approximately 2 weeks for reevaluation. Complications None
== END 2023-02-19 12:58 | disposition home or self-care (01) ==
LOC: SDC 10:23 → AC 10:41
PROVIDERS: PCP Preventive Medicine Occupational Medicine; Referring Provider Anesthesiology Pain Medicine; Visit Provider Anesthesiology Pain Medicine
PROC: 3E0S3BZ Introduction of Anesthetic Agent into Epidural Space, Percutaneous Approach (ICD-10-PCS; CPT 62282; principal; 2023-02-19 11:55)
DX: M51.17 Intervertebral disc disorders with radiculopathy, lumbosacral region (principal); M46.96 Unspecified inflammatory spondylopathy, lumbar region; M46.1 Sacroiliitis, not elsewhere classified; M48.07 Spinal stenosis, lumbosacral region; E03.9 Hypothyroidism, unspecified; M51.37 Other intervertebral disc degeneration, lumbosacral region; M70.71 Other bursitis of hip, right hip; M96.1 Postlaminectomy syndrome, not elsewhere classified; M43.16 Spondylolisthesis, lumbar region; M47.817 Spondylosis without myelopathy or radiculopathy, lumbosacral region; M16.11 Unilateral primary osteoarthritis, right hip; M53.3 Sacrococcygeal disorders, not elsewhere classified; G89.29 Other chronic pain; I10 Essential (primary) hypertension; Z79.899 Other long term (current) drug therapy; Z86.16 Personal history of COVID-19
CPT/HCPCS: 62323; 01992; 64483; 77003; J7120; J3490

== ENCOUNTER → 2023-04-06 | Outpatient (CLI) | payer MEDICARE, SELFPAY ==
--- NOTE | 2023-04-06 12:50 | RAD_ITS ---
STUDY: X-RAY - THORACIC SPINE REASON FOR EXAM: Female, 82 years old. S/P FALL TECHNIQUE: AP view(s) of the thoracic spine were obtained. COMPARISON: None. FINDINGS: There is an increase in the normal thoracic kyphosis. There is no substantial scoliosis. There is demineralization of the thoracic spine with endplate spondylosis. There is multilevel disc space narrowing of the thoracic spine. No compression fracture. Neurostimulator leads overlie the thoracic spine. RAD/Thoracic Spine 3 Views IMPRESSION: No compression fracture. Degenerative changes. Electronically Signed: Long Llanos MD (Brooks) at 18:02 EST ,
== END | disposition home or self-care (01) ==
LOC: LAB 12:36
PROVIDERS: PCP Preventive Medicine Occupational Medicine; Referring Provider Anesthesiology Pain Medicine; Visit Provider Anesthesiology Pain Medicine
DX: Z04.3 Encounter for examination and observation following other accident (principal); M47.814 Spondylosis without myelopathy or radiculopathy, thoracic region; M48.04 Spinal stenosis, thoracic region
CPT/HCPCS: 72072

== ENCOUNTER 2024-07-07 09:50 | Day surgery (SDC) | payer MEDICARE, SELFPAY ==
--- NOTE | 2024-07-04 10:41 | PAT.ANESEVAL ---
Pre-Assessment Diagnosis/Proposed Procedure Planned Operative Procedure(s): CAUDAL EPIDURAL STEROID INJECTION Anesthesia History Anesthesia History - incident response specialist: Anesthesia History - incident response specialist Hx Hospitalization No 07/04/24 09:31 Any Problems With Anesthesia No 07/04/24 09:31 Cholinesterase deficiency No 07/04/24 09:31 You/Your Family Experience No 07/04/24 09:31 fever (hyperthermia) with Relationship Recent Exposure to Contagious No 02/19/23 11:10 Disease Does patient have nerve Yes: SPINAL CORD STIMULATOR 07/04/24 09:31 stimulator Patient instructed to have device shut off --Does patient have Pacemaker or ICD? When Was Last Pacemaker Check QUESTION #4 FULL TEXT: You/Your Family Experience fever (hyperthermia) with Anesthesia Last Oral Intake Last Oral intake: Last Oral Intake NPO since Meds taken in AM with sips of water? Meds patient instructed to take am of surgery PONV PONV - incident response specialist: PONV - incident response specialist Female Yes 07/04/24 09:31 HX of Motion Sickness No 07/04/24 09:31 HX of N/V After Surgery No 07/04/24 09:31 Non-Smoker Yes 07/04/24 09:31 Duration of Surgery greater No 07/04/24 09:31 than 60 minutes Number of Risk Factors 2 07/04/24 09:31 PONV Score Moderate Risk 07/04/24 09:31 Height & Weight Height & Weight: Anesthesia: Height & Weight Height 5 ft 1 in 02/19/23 11:10 Respiratory Assessment Respiratory Assessment - incident response specialist: Respiratory Tract Infection Hx - incident response specialist Hx Respiratory Tract Infection No 07/04/24 09:31 STOP Sleep Apnea STOP Sleep Apnea - incident response specialist: STOP Sleep Apnea - incident response specialist Hx Hypertension Yes: CONTROLLED WITH MEDS 07/04/24 09:31 Hx Sleep Apnea No 07/04/24 09:31 CPAP No 05/30/23 10:21 BIPAP No 05/30/23 10:21 Do you snore loudly (louder No 07/04/24 09:31 than talking or can be heard Do you often feel tired/ Yes 07/04/24 09:31 fatigued/ sleepy during daytime? Has anyone observed you stop No 07/04/24 09:31 breathing during sleep? STOP Results Positive 07/04/24 09:31 QUESTION #5 FULL TEXT : Do you snore loudly (louder than talking or can be heard through closed doors)? Tobacco Use History Tobacco Use History - incident response specialist: Tobacco Use History - incident response specialist Tobacco Use Non-smoker 07/30/20 14:16 Smoking Status Never smoker 07/04/24 09:31 Hx Tobacco Use No 07/04/24 09:31 Years Smoking Packs Smoked per Day Smoking Cessation Date was within the last 15 years Hx Smoking Cessation Date Hx Smoking Cessation Counseling Hematologic Medial History Hematologic Hx - incident response specialist: Hematologic Medical Hx - clinical documentation spec Hx of Blood Transfusion No 07/04/24 09:31 Hx of Transfusion in last 3 No 07/04/24 09:31 Months Date of Last Transfusion (if within last 3 months) Ever experience any problems No 07/04/24 09:31 with transfusion(s)? Specify any problems Hx of Preganancy in last 3 No 07/04/24 09:31 Months Nurse Filling Out Transfusion DSCHRIBER 07/04/24 09:31 & Questions: Date: 07/04/24 07/04/24 09:31 Time: 09:34 07/04/24 09:31 Patient unable to answer at this time (ie. confused, unrespo /Reproduction History /Reproductive History - incident response specialist: /Reproductive Hx- incident response specialist Hx Now No 07/04/24 09:31 Gestational Age (in weeks): EDC: Hx Hx Para Hx Section SAB No 07/04/24 09:31 PFSH Medical History Wears dentures Easy bruising History of CHF (congestive heart failure) History of echocardiogram Cardiology follow-up encounter Fall Hoarseness Dysphonia Bladder disease Wears hearing aid Heartburn Syncope Spinal cord stimulator status Wears glasses Post-menopausal Thyroid disease Walker as ambulation aid Arthritis Injury of head and neck Shortness of breath on exertion History of pain when walking History of edema History of irregular heartbeat Non-smoker Ovarian cyst Back pain Hyperlipidemia HTN (hypertension) Home Medications ?Medication ?Instructions ?Recorded ?Last Taken ?Type cholecalciferol (vitamin D3) 50 4,000 unit PO DAILY 06/02/13 10/27/20 History mcg (2,000 unit) tablet (Vitamin D3) multivitamin with folic acid 400 1 tab PO DAILY 06/02/13 10/27/20 History mcg tablet (Thera) atenolol 25 mg tablet (Tenormin) 25 mg PO QHS 07/30/20 02/20/22 09:00 History cetirizine 10 mg tablet (Zyrtec) 10 mg PO QHS ALLERGIES 10/28/20 10/28/20 History cinnamon bark 500 mg capsule 1,000 mg PO DAILY SUPPLEMENT 10/28/20 10/27/20 History (Cinnamon) gabapentin 300 mg capsule 300 mg PO TID NERVE PAIN 10/28/20 07/07/24 History levothyroxine 112 mcg tablet 125 mcg PO DAILY THYROID 10/28/20 07/07/24 History sertraline 50 mg tablet (Zoloft) 50 mg PO QHS DEPRESSION 10/28/20 10/27/20 History acetaminophen 500 mg tablet 500 mg PO TID 09/01/21 07/07/24 History hydromorphone 2 mg tablet 2 mg PO 1400,2300 02/16/23 Unknown History (Dilaudid) bumetanide 0.5 mg tablet 0.5 mg PO DAILY 07/04/24 Unknown History dapagliflozin propanediol 5 mg 10 mg PO DAILY 07/04/24 07/04/24 History tablet (Farxiga) mirabegron 50 mg tablet,extended 50 mg PO DAILY 07/04/24 07/07/24 History release 24 hr (Myrbetriq) sacubitril 49 mg-valsartan 51 mg 1 tab PO BID 07/04/24 Unknown History tablet (Entresto) Allergy/AdvReac Type Severity Reaction Status Date / Time codeine phosphate (From Allergy Severe Rash Verified 07/04/24 09:23 Tylenol-Codeine #3) diazepam (From Valium) Allergy Severe Rash Verified 07/04/24 09:23 amoxicillin trihydrate (From Allergy Rash Verified 07/04/24 09:23 Augmentin) ampicillin Allergy Rash Verified 07/04/24 09:23 cephalexin monohydrate (From Allergy Rash Verified 07/04/24 09:23 Keflex) chlorpheniramine maleate Allergy Rash Verified 07/04/24 09:23 (From Chlor-Trimeton) clindamycin Allergy Rash Verified 07/04/24 09:23 dexamethasone sod phosphate Allergy Other Verified 07/04/24 09:23 (From Decadron) levofloxacin (From Levaquin) Allergy Rash Verified 07/04/24 09:23 lorazepam (From Ativan) Allergy Rash Verified 07/04/24 09:23 Penicillins Allergy Rash Verified 07/04/24 09:23 potassium clavulanate (From Allergy Rash Verified 07/04/24 09:23 Augmentin) prochlorperazine edisylate AdvReac Severe Other Verified 07/04/24 09:23 (From Compazine) dexamethasone (From Decadron) AdvReac Other Verified 07/04/24 09:23 prochlorperazine (From AdvReac MUSCLE Verified 07/04/24 09:23 Compazine) Family History Father Heart disease Mother Heart disease Diabetes Hypertension Surgical History History of surgery History of Zenker's diverticulum removal History of back surgery Hx of surgical procedure Hx of ovarian cystectomy History of appendectomy Hx of cholecystectomy History of hysterectomy Hx of tonsillectomy Social History household members: spouse and family Smoking Status: Never smoker alcohol intake: never substance use type: does not use Recommendation Anesthesia Recommendation Anesthesia recommendation: OPTIMIZED for anesthesia
--- NOTE | 2024-07-04 14:47 | PAT.ANE_ITS ---
Pre-Assessment Diagnosis/Proposed Procedure Planned Operative Procedure(s): CAUDAL EPIDURAL STEROID INJECTION Anesthesia History Anesthesia History - breakdown person: Anesthesia History - breakdown person Hx Hospitalization No 07/04/24 09:31 Any Problems With Anesthesia No 07/04/24 09:31 Cholinesterase deficiency No 07/04/24 09:31 You/Your Family Experience No 07/04/24 09:31 fever (hyperthermia) with Relationship Recent Exposure to Contagious No 02/19/23 11:10 Disease Does patient have nerve Yes: SPINAL CORD STIMULATOR 07/04/24 09:31 stimulator Patient instructed to have device shut off --Does patient have Pacemaker or ICD? When Was Last Pacemaker Check QUESTION #4 FULL TEXT: You/Your Family Experience fever (hyperthermia) with Anesthesia Last Oral Intake Last Oral intake: Last Oral Intake NPO since Meds taken in AM with sips of water? Meds patient instructed to take am of surgery PONV PONV - breakdown person: PONV - breakdown person Female Yes 07/04/24 09:31 HX of Motion Sickness No 07/04/24 09:31 HX of N/V After Surgery No 07/04/24 09:31 Non-Smoker Yes 07/04/24 09:31 Duration of Surgery greater No 07/04/24 09:31 than 60 minutes Number of Risk Factors 2 07/04/24 09:31 PONV Score Moderate Risk 07/04/24 09:31 Height & Weight Height & Weight: Anesthesia: Height & Weight Height 5 ft 1 in 02/19/23 11:10 Respiratory Assessment Respiratory Assessment - breakdown person: Respiratory Tract Infection Hx - breakdown person Hx Respiratory Tract Infection No 07/04/24 09:31 STOP Sleep Apnea STOP Sleep Apnea - breakdown person: STOP Sleep Apnea - breakdown person Hx Hypertension Yes: CONTROLLED WITH MEDS 07/04/24 09:31 Hx Sleep Apnea No 07/04/24 09:31 CPAP No 05/30/23 10:21 BIPAP No 05/30/23 10:21 Do you snore loudly (louder No 07/04/24 09:31 than talking or can be heard Do you often feel tired/ Yes 07/04/24 09:31 fatigued/ sleepy during daytime? Has anyone observed you stop No 07/04/24 09:31 breathing during sleep? STOP Results Positive 07/04/24 09:31 QUESTION #5 FULL TEXT : Do you snore loudly (louder than talking or can be heard through closed doors)? 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 Specify any problems Hx of Preganancy in last 3 No 07/04/24 09:31 Months Nurse Filling Out Transfusion DSCHRIBER 07/04/24 09:31 & Questions: Date: 07/04/24 07/04/24 09:31 Time: 09:34 07/04/24 09:31 Patient unable to answer at this time (ie. confused, unrespo /Reproduction History /Reproductive History - breakdown person: /Reproductive Hx- breakdown person Hx Now No 07/04/24 09:31 Gestational Age (in weeks): EDC: Hx Hx Para Hx Section SAB No 07/04/24 09:31 [facility] Medical History (Updated 07/04/24 @ 09:47 by Sylvia Rodriguez) Wears dentures Easy bruising History of CHF (congestive heart failure) History of echocardiogram Cardiology follow-up encounter Fall Hoarseness Dysphonia Bladder disease Wears hearing aid Heartburn Syncope Spinal cord stimulator status Wears glasses Post-menopausal Thyroid disease Walker as ambulation aid Arthritis Injury of head and neck Shortness of breath on exertion History of pain when walking History of edema History of irregular heartbeat Non-smoker Ovarian cyst Back pain Hyperlipidemia HTN (hypertension) Home Medications ?Medication ?Instructions ?Recorded ?Last Taken ?Type cholecalciferol (vitamin D3) 50 4,000 unit PO DAILY 10/27/20 History mcg (2,000 unit) tablet (Vitamin D3) multivitamin with folic acid 400 1 tab PO DAILY 10/27/20 History mcg tablet (Thera) atenolol 25 mg tablet (Tenormin) 25 mg PO QHS 07/30/20 02/20/22 09:00 History cetirizine 10 mg tablet (Zyrtec) 10 mg PO QHS ALLERGIE S 10/28/20 10/28/20 History cinnamon bark 500 mg capsule 1,000 mg PO DAILY SUPPLEM ENT 10/28/20 10/27/20 History (Cinnamon) gabapentin 300 mg capsule 300 mg PO TID NERVE PAIN 03/1002/19/23 History levothyroxine 112 mcg tablet 125 mcg PO DAILY THYROID 10/28/20 02/19/23 History sertraline 50 mg tablet (Zoloft) 50 mg PO QHS DEPRESSI ON 10/28/20 10/27/20 History acetaminophen 500 mg tablet 500 mg PO TID 09/01/2108/09 09:00 History hydromorphone 2 mg tablet 2 mg PO 1400,2300 02/16/23 U nknown History (Dilaudid) bumetanide 0.5 mg tablet 0.5 mg PO DAILY 07/04/24 Unk nown History dapagliflozin propanediol 5 mg 10 mg PO DAILY 07/04/24 07/04/24 History tablet (Farxiga) mirabegron 50 mg tablet,extended 50 mg PO DAILY Unknown History release 24 hr (Myrbetriq) sacubitril 49 mg-valsartan 51 mg 1 tab PO BID 07/04/24 Unknown History tablet (Entresto) Allergy/AdvReac Type Severity Reaction Status Date / Time codeine phosphate (From Allergy Severe Rash Verified 07/04/24 09:23 Tylenol-Codeine #3) diazepam (From Valium) Allergy Severe Rash Verified 07/04/24 09:23 amoxicillin trihydrate (From Allergy Rash Verified 07/04/24 09:23 Augmentin) ampicillin Allergy Rash Verified 07/04/24 09:23 cephalexin monohydrate (From Allergy Rash Verified 07/04/24 09:23 Keflex) chlorpheniramine maleate Allergy Rash Verified 07/04/24 09:23 (From Chlor-Trimeton) clindamycin Allergy Rash Verified 07/04/24 09:23 dexamethasone sod phosphate Allergy Other Verified 07/04/24 09:23 (From Decadron) levofloxacin (From Levaquin) Allergy Rash Verified 07/04/24 09:23 lorazepam (From Ativan) Allergy Rash Verified 07/04/24 09:23 Penicillins Allergy Rash Verified 07/04/24 09:23 potassium clavulanate (From Allergy Rash Verified 07/04/24 09:23 Augmentin) prochlorperazine edisylate AdvReac Severe Other Verified 07/04/24 09:23 (From Compazine) dexamethasone (From Decadron) AdvReac Other Verified 07/04/24 09:23 prochlorperazine (From AdvReac MUSCLE Verified 07/04/24 09:23 Compazine) Family History Father Heart disease Mother Heart disease Diabetes Hypertension Surgical History History of surgery History of Zenker's diverticulum removal History of back surgery Hx of surgical procedure Hx of ovarian cystectomy History of appendectomy Hx of cholecystectomy History of hysterectomy Hx of tonsillectomy Social History household members: spouse and family Smoking Status: Never smoker alcohol intake: never substance use type: does not use Audit: Pertinent Findings Pertinent Findings EKG Perinent findings: March 07, 2022. Normal sinus rhythm versus ectopic atrial rhythm. Right axis deviation. Poor R wave progression. February 15, 2022. Normal sinus rhythm. Anterior infarct-age undetermined. Echo (EF%) pertinent findings: August 02, 2023. Ejection fraction 60 to 65%. Right ventricular systolic pressure by Doppler is 61 mmHg. There is no aortic stenosis noted. Consult pertinent findings: April 29, 2024. 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 1. Heart failure with preserved ejection fraction-stable. Patient appears euvolemic today. Continue current medications. 2. Hypertension?controlled. 3. Pulmonary hypertension-PA pressure was 61 mmHg on echo earlier. Patient has oxygen available at home which she wears at night. 4. Left ventricular hypertrophy-likely due to hypertension. Recommendation Anesthesia Recommendation Anesthesia recommendation: OPTIMIZED for anesthesia
[2024-07-07] VITALS (7 sets, daily range): BP systolic 124–157; BP diastolic 71–77; PULSE 55–58; RESP 14–16; TEMP 36.6–37.1; O2SAT 92–95; BMI 38.3
--- NOTE | 2024-07-07 10:28 | PRE.ANES_ITS ---
ASA Classification* ASA Classification ASA Classification: 3 Assessment & Plan Anesthesia* Anesthesia Assessment Anesthesia Assessment: Discussed sedation and/or anesthesia options, risks, benefits, and alternatives with patient/parents/legal guardian/POA. Questions invited. The patient/parents/legal guardian/POA seems to understand and agrees to proceed with anesthesia plan. Reviewed the physical assessment, medical history, allergy history and patient home medications list prior to surgery/procedure/anesthetic and documented any changes. Performed airway and anesthesia risk assessments. Anesthesia Type Anesthesia Type: MAC Anesthesia Focused Assessment* Airway Assessment Mouth opens: >3 cm Mallampati Score: II Focused Labs Anesthesia Preop lab: CBC WBC 10.5 K/mm3 (4.4-11.0) 03/07/22 20:56 03/07/22 RBC 4.33 M/mm3 (4.2-5.4) 03/07/22 20:56 03/07/22 Hgb 12.5 g/dL (12.0-15.0) 03/07/22 20:56 03/07/22 Hct 40.5 % (37-47) 03/07/22 20:56 03/07/22 Plt Count 281 K/mm3 (150-450) 03/07/22 20:56 03/07/22 CHEMISTRY Potassium 4.3 mmol/L (3.5-5.1) 03/07/22 20:56 03/07/22 Sodium 138 mmol/L (136-145) 03/07/22 20:56 03/07/22 BUN 19 mg/dL (7-18) H 03/07/22 20:56 03/07/22 Creatinine 0.87 mg/dL (0.55-1.02) 03/07/22 20:56 03/07/22 Glucose 149 mg/dL (74-106) H 03/07/22 20:56 03/07/22 POC Glucose 132 mg/dL (70-110) H 09/27/12 12:16 09/27/12 COAG Pre-Assessment Diagnosis/Proposed Procedure Planned Operative Procedure(s): CAUDAL EPIDURAL STEROID INJECTION Anesthesia History Anesthesia History - remediation project engineer: Anesthesia History - remediation project engineer Hx Hospitalization No 07/04/24 09:31 Any Problems With Anesthesia No 07/04/24 09:31 Cholinesterase deficiency No 07/04/24 09:31 You/Your Family Experience No 07/04/24 09:31 fever (hyperthermia) with Relationship Recent Exposure to Contagious No 02/19/23 11:10 Disease Does patient have nerve Yes: SPINAL CORD STIMULATOR 07/04/24 09:31 stimulator Patient instructed to have device shut off --Does patient have Pacemaker or ICD? When Was Last Pacemaker Check QUESTION #4 FULL TEXT: You/Your Family Experience fever (hyperthermia) with Anesthesia Last Oral Intake Last Oral intake: Last Oral Intake NPO since Meds taken in AM with sips of water? Meds patient instructed to take am of surgery PONV PONV - remediation project engineer: PONV - remediation project engineer Female Yes 07/04/24 09:31 HX of Motion Sickness No 07/04/24 09:31 HX of N/V After Surgery No 07/04/24 09:31 Non-Smoker Yes 07/04/24 09:31 Duration of Surgery greater No 07/04/24 09:31 than 60 minutes Number of Risk Factors 2 07/04/24 09:31 PONV Score Moderate Risk 07/04/24 09:31 Height & Weight Height & Weight: Anesthesia: Height & Weight Height 5 ft 1 in 02/19/23 11:10 Respiratory Assessment Respiratory Assessment - remediation project engineer: Respiratory Tract Infection Hx - remediation project engineer Hx Respiratory Tract Infection No 07/04/24 09:31 STOP Sleep Apnea STOP Sleep Apnea - remediation project engineer: STOP Sleep Apnea - remediation project engineer Hx Hypertension Yes: CONTROLLED WITH MEDS 07/04/24 09:31 Hx Sleep Apnea No 07/04/24 09:31 CPAP No 05/30/23 10:21 BIPAP No 05/30/23 10:21 Do you snore loudly (louder No 07/04/24 09:31 than talking or can be heard Do you often feel tired/ Yes 07/04/24 09:31 fatigued/ sleepy during daytime? Has anyone observed you stop No 07/04/24 09:31 breathing during sleep? STOP Results Positive 07/04/24 09:31 QUESTION #5 FULL TEXT : Do you snore loudly (louder than talking or can be heard through closed doors)? 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 Specify any problems Hx of Preganancy in last 3 No 07/04/24 09:31 Months Nurse Filling Out Transfusion DSCHRIBER 07/04/24 09:31 & Questions: Date: 07/04/24 07/04/24 09:31 Time: 09:34 07/04/24 09:31 Patient unable to answer at this time (ie. confused, unrespo /Reproduction History /Reproductive History - remediation project engineer: /Reproductive Hx- remediation project engineer Hx Now No 07/04/24 09:31 Gestational Age (in weeks): EDC: Hx Hx Para Hx Section SAB No 07/04/24 09:31 PFSH Medical History Wears dentures Easy bruising History of CHF (congestive heart failure) History of echocardiogram Cardiology follow-up encounter Fall Hoarseness Dysphonia Bladder disease Wears hearing aid Heartburn Syncope Spinal cord stimulator status Wears glasses Post-menopausal Thyroid disease Walker as ambulation aid Arthritis Injury of head and neck Shortness of breath on exertion History of pain when walking History of edema History of irregular heartbeat Non-smoker Ovarian cyst Back pain Hyperlipidemia HTN (hypertension) Home Medications ?Medication ?Instructions ?Recorded ?Last Taken ?Type cholecalciferol (vitamin D3) 50 4,000 unit PO DAILY 10/27/20 History mcg (2,000 unit) tablet (Vitamin D3) multivitamin with folic acid 400 1 tab PO DAILY 10/27/20 History mcg tablet (Thera) atenolol 25 mg tablet (Tenormin) 25 mg PO QHS 07/30/20 02/20/22 09:00 History cetirizine 10 mg tablet (Zyrtec) 10 mg PO QHS ALLERGIE S 10/28/20 10/28/20 History cinnamon bark 500 mg capsule 1,000 mg PO DAILY SUPPLEM ENT 10/28/20 10/27/20 History (Cinnamon) gabapentin 300 mg capsule 300 mg PO TID NERVE PAIN 03/1002/19/23 History levothyroxine 112 mcg tablet 125 mcg PO DAILY THYROID 10/28/20 02/19/23 History sertraline 50 mg tablet (Zoloft) 50 mg PO QHS DEPRESSI ON 10/28/20 10/27/20 H istory acetaminophen 500 mg tablet 500 mg PO TID 09/01/2108/09 09:00 History hydromorphone 2 mg tablet 2 mg PO 1400,2300 02/16/23 U nknown History (Dilaudid) bumetanide 0.5 mg tablet 0.5 mg PO DAILY 07/04/24 Unk nown History dapagliflozin propanediol 5 mg 10 mg PO DAILY 07/04/24 07/04/24 History tablet (Farxiga) mirabegron 50 mg tablet,extended 50 mg PO DAILY Unknown History release 24 hr (Myrbetriq) sacubitril 49 mg-valsartan 51 mg 1 tab PO BID 07/04/24 Unknown History tablet (Entresto) Allergy/AdvReac Type Severity Reaction Status Date / Time codeine phosphate (From Allergy Severe Rash Verified 07/04/24 09:23 Tylenol-Codeine #3) diazepam (From Valium) Allergy Severe Rash Verified 07/04/24 09:23 amoxicillin trihydrate (From Allergy Rash Verified 07/04/24 09:23 Augmentin) ampicillin Allergy Rash Verified 07/04/24 09:23 cephalexin monohydrate (From Allergy Rash Verified 07/04/24 09:23 Keflex) chlorpheniramine maleate Allergy Rash Verified 07/04/24 09:23 (From Chlor-Trimeton) clindamycin Allergy Rash Verified 07/04/24 09:23 dexamethasone sod phosphate Allergy Other Verified 07/04/24 09:23 (From Decadron) levofloxacin (From Levaquin) Allergy Rash Verified 07/04/24 09:23 lorazepam (From Ativan) Allergy Rash Verified 07/04/24 09:23 Penicillins Allergy Rash Verified 07/04/24 09:23 potassium clavulanate (From Allergy Rash Verified 07/04/24 09:23 Augmentin) prochlorperazine edisylate AdvReac Severe Other Verified 07/04/24 09:23 (From Compazine) dexamethasone (From Decadron) AdvReac Other Verified 07/04/24 09:23 prochlorperazine (From AdvReac MUSCLE Verified 07/04/24 09:23 Compazine) Family History Father Heart disease Mother Heart disease Diabetes Hypertension Surgical History History of surgery History of Zenker's diverticulum removal History of back surgery Hx of surgical procedure Hx of ovarian cystectomy History of appendectomy Hx of cholecystectomy History of hysterectomy Hx of tonsillectomy Social History household members: spouse and family Smoking Status: Never smoker alcohol intake: never substance use type: does not use Review of Systems (Anesthesia) ROS Narrative System reviewed and no additional complaints, except as documented.
--- NOTE | 2024-07-07 11:00 | RAD_ITS ---
EXAM: FLUOR GUIDANCE FOR SPINE INJ CLINICAL HISTORY: Chronic low back pain. COMPARISON: None. TECHNIQUE: Intraoperative imaging provided for caudal block. FINDINGS: Intraoperative imaging provided caudal block. RAD/Fluor Guidance for Spine Inj IMPRESSION: Intraoperative imaging provided for caudal block. Reading Location: [id number]
[2024-07-07] MEDS: Lidocaine 1% (5 ml sdv) 5 ML Vial (11:06)
[2024-07-07] MEDS: 0.9% Normal Saline (Pres. free 10 ML Vial (11:07)
[2024-07-07] MEDS: MethylPREDNISolone Acetate 80 MG/ML Vial (11:07)
[2024-07-07] MEDS: Bupivacaine 0.25% 30 ML Vial (11:07)
--- NOTE | 2024-07-07 11:12 | PCM.OPRPT ---
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 pipe operator: No Type of Anesthesia: Local MAC RN Documented Start/Stop Times: Operation Date: 07/07/24 11:40 Case Time Into Pre-Op 07/07/24 10:12 Out of Pre-Op 07/07/24 10:49 Anesthesia Start 07/07/24 10:58 Into Room 07/07/24 10:58 Procedure Start 07/07/24 11:06 Procedure End 07/07/24 11:08 Anesthesia End 07/07/24 11:11 Out of Room 07/07/24 11:11 Procedure Start Time: 11:12 Procedure Stop Time: 11:12 Select all DRAINS/GRAFTS/IMPLANTS that apply: None Estimated Blood Loss: 0 Specimen collected: No Description of surgery: PREOPERATIVE DIAGNOSIS: Lumbosacral radiculopathy, lumbosacral degenerative disc disease, lumbosacral spinal stenosis POSTOPERATIVE DIAGNOSIS:Lumbosacral radiculopathy, lumbosacral degenerative disc disease, lumbosacral spinal stenosis PROCEDURE PERFORMED: Diagnostic/therapeutic caudal epidural steroid injection Under fluoroscopic guidance. ANESTHESIA: MAC. BLOOD LOSS: Minimal. COMPLICATIONS: None. DESCRIPTION OF PROCEDURE: History and physical of today was reviewed. Risks and benefits of the procedure were explained. The patient understood and agreed to proceed. Informed consent was obtained. IV inserted per routine protocol. The patient was taken to the operating room and placed in the prone position with a pillow positioned underneath the abdomen. The lower back and tailbone area was prepped and draped in a sterile fashion using iodine x3. Under fluoroscopy guidance on a lateral view, the caudal space was identified. The skin and subcutaneous tissue was anesthetized with approximately 3 mL of 1% lidocaine using a 25-gauge regular needle. Under direct visualization with fluoroscopy, using a 22-gauge 3-1/2-inch spinal needle, the needle was advanced via the skin through the sacral hiatus. The tip of the needle was passed through the sacrococcygeal ligament and advanced to approximately S4 area. After negative aspiration of blood or CSF, a total of 3 mL of contrast was injected to confirm correct placement of the needle as well as cephalad spread. The spread was followed to approximately L5 area. After confirmation on AP as well as lateral view and repeated negative aspiration, a total of 15 mL of preservative-free 0.125% Marcaine with 80 mg of Depo-Medrol was injected easily. The needle was then removed intact. The patient experienced no sign or symptoms of intrathecal or intravascular injection. The patient experienced no paresthesia. The procedure was completed without any apparent difficulty or any complications. The patient appeared to tolerate it well. ASSESSMENT AND PLAN: This is an 83 year-old female with lumbosacral radiculopathy, lumbosacral spinal stenosis, lumbosacral degenerative disc disease status post diagnostic/therapeutic caudal epidural steroid injection, patient will continue her current medications, patient will follow-up in approximately 2 weeks for reevaluation. Surgical Findings: none Complications Complications: No Admit VTE Documentation VTE Present on Admission: No VTE Mechan Device Prophylaxis: None VTE Pharm Prophylaxis ordered?: No
--- NOTE | 2024-07-07 11:17 | PCM.POST.ANE ---
Anesthesia: Postop Eval I Current Vital Signs Temperature: 97.8 F Pulse Rate: 57 Blood Pressure: 124/74 Respiratory Rate: 14 Pulse Ox: 94 Assessment Airway patent: Yes Spontaneous unlabored respirations: Yes nausea: No Vomiting: No Anesthesia Complication: No Fluid Hydration Crystalloid volume administer (ml): 10 Total IV fluid infused: 10 Progress Note Anesthesia document: Postop Eval 1 completed: Yes
--- NOTE | 2024-07-07 11:28 | POSTOPAN2_ITS ---
Anesthesia Postop Eval I Sum Postop Eval Completion status Anesthesia document: Postop Eval 1 completed: Yes Anesthesia Postop Eval I Summary Anesthesia Postop Eval I Summary: Anesthesia Postop Eval I: Assessment Summary Airway patent Yes 07/07/24 11:17 SERVICE [email or web address] Spontaneous unlabored Yes 07/07/24 11:17 SERVICE [email or web address] respirations Mental status nausea No 07/07/24 11:17 SERVICE [email or web address] Vomiting No 07/07/24 11:17 SERVICE [email or web address] Anesthesia Postop Eval I: Fluid Summary Crystalloid volume administer 10 07/07/24 11:17 SERVICE [email or web address] (ml) Colloids volume administered ( ml) Blood Product volume administered (ml) Total IV fluid infused 10 07/07/24 11:17 [email or web address] Anesthesia Postop Eval I: Summary Notes Anesthesia Complication No 07/07/24 11:17 [email or web address] Anesthesia Complication Comment: Post-operative progress note Anesthesia: Postop Eval II Evaluation Mental status: Awake Pain Level: 0 nausea: No Vomiting: No
--- NOTE | 2024-07-07 11:28 | PCM.POSTANE2 ---
Anesthesia Postop Eval I Sum Postop Eval Completion status Anesthesia document: Postop Eval 1 completed: Yes Anesthesia Postop Eval I Summary Anesthesia Postop Eval I Summary: Anesthesia Postop Eval I: Assessment Summary Airway patent Yes 07/07/24 11:17 [email or web address] Spontaneous unlabored Yes 07/07/24 11:17 [email or web address] respirations Mental status nausea No 07/07/24 11:17 [email or web address] Vomiting No 07/07/24 11:17 [email or web address] Anesthesia Postop Eval I: Fluid Summary Crystalloid volume administer 10 07/07/24 11:17 [email or web address] (ml) Colloids volume administered ( ml) Blood Product volume administered (ml) Total IV fluid infused 10 07/07/24 11:17 [email or web address] Anesthesia Postop Eval I: Summary Notes Anesthesia Complication No 07/07/24 11:17 [email or web address] Anesthesia Complication Comment: Post-operative progress note Anesthesia: Postop Eval II Evaluation Mental status: Awake Pain Level: 0 nausea: No Vomiting: No
== END 2024-07-07 12:02 | disposition home or self-care (01) ==
LOC: SDC 09:53 → AC 09:55
PROVIDERS: PCP Preventive Medicine Occupational Medicine; Referring Provider Anesthesiology Pain Medicine; Visit Provider Anesthesiology Pain Medicine
PROC: 3E0S3BZ Introduction of Anesthetic Agent into Epidural Space, Percutaneous Approach (ICD-10-PCS; CPT 62282; principal; 2024-07-07 11:35)
DX: M51.17 Intervertebral disc disorders with radiculopathy, lumbosacral region (principal); M48.07 Spinal stenosis, lumbosacral region; I10 Essential (primary) hypertension; E07.9 Disorder of thyroid, unspecified; Z88.0 Allergy status to penicillin; Z88.1 Allergy status to other antibiotic agents; Z79.899 Other long term (current) drug therapy; Z79.890 Hormone replacement therapy
CPT/HCPCS: 62323; 64483; 77003; A4216